=== PATIENT | female | born 1955 | race African-American/Black ===

== ENCOUNTER 2024-01-27 09:48 | Outpatient (REF) | payer MEDICARE, SELFPAY ==
[2024-01-27 11:39] LABS: MANUAL DIFF FLAG NO
[2024-01-27 12:46] LABS: Basophils Absolute Auto 0.1 X10*3/uL (0.0-0.2); Basophils Percent Auto 0.9 % (0-2); Eosinophils Absolute Auto 0.2 X10*3/uL (0.0-0.4); Hematocrit 42.3 % (37.0-47.0); Imm Gran Abs Auto 0.03 X10*3/uL (0.00-0.03); Imm Gran Pct Auto 0.3 % (0.0-0.4); Lymphocytes Absolute Auto 2.1 X10*3/uL (1.2-4.9); Lymphocytes Percent Auto 24.3 % (20-40); Mean Corpuscular HGB Conc 33.1 g/dl (31.0-35.0); Mean Corpuscular Hemoglobin 30.1 pg (27.0-33.0); Mean Platelet Volume 10.5 fL (9.4-12.3); Monocytes Absolute Auto 0.6 X10*3/uL (0.1-1.2); Monocytes Percent Auto 7.4 % (2-11); Neutrophils Absolute Auto 5.6 x10*3/uL (2.0-8.3); Neutrophils Percent Auto 65.1 % (45-73); Platelet Count 273 X10*3/uL (160-400); Red Blood Count 4.65 X10*6/uL (4.20-5.50); Red Cell Distribution Width 14.6 % (11.0-16.0); White Blood Count 8.6 X10*3/uL (4.8-10.8)
[2024-01-27 13:28] LABS: Erythrocyte Sedimentation Rate 12 MM/HR (0-20)
[2024-01-27 13:54] LABS: Alanine Aminotransferase 12 U/L (0-31); Albumin Level 4.5 g/dL (3.5-5.0); Alkaline Phosphatase 64 U/L (39-117); Anion Gap 13 (12-20); Aspartate Amino Transferase 14 U/L (5-31); Bilirubin Total 0.5 mg/dL (0.0-1.0); Blood Urea Nitrogen 13 mg/dL (9-16); C Reactive Protein 0.53 mg/dL (< or = 0.50); Calcium 9.7 mg/dL (8.4-10.2); Carbon Dioxide 30 mmol/L (22-29); Chloride 103 mmol/L (96-108); Estimated Glomerular Filt Rate > 60; Glucose Random 103 mg/dL (60-115); Potassium 3.6 mmol/L (3.3-5.1); Sodium 142 mmol/L (135-145); Total Protein 7.5 g/dL (6.5-8.0)
[2024-01-27 14:01] LABS: Uric Acid 5.9 mg/dL (2.4-5.7)
[2024-01-28 10:57] LABS: HBS Num1 0.44 mIU/mL (0-7.99); HBc Num1 0.07 S/CO (0.00-0.79); HBsAGNum1 0.27 S/CO (0.00-0.99); Hepatitis A Antibody IgM 0.15 Index (0-0.79); Hepatitis B Core Antibody Nonreactive (Nonreactive); Hepatitis B Surface Antigen Negative (Negative); ~HepC Num1 0.08 S/CO (0.00-0.79); ~Hepatitis A Antibody IgM Nonreactive (Nonreactive); ~Hepatitis B Surface Antibody NONREACTIVE (Nonreactive); ~Hepatitis C Antibody Nonreactive (Nonreactive)
[2024-01-29 09:28] LABS: Anti Nuclear Antibody Screen NEGATIVE (NEGATIVE)
[2024-01-29 21:23] LABS: TS Negative Control Passed; TS Panel A 1; TS Panel B 0; TS Positive Control Passed; TSpotTB Negative (Negative)
[2024-01-30 11:19] LABS: Prot Elec - Albumin 4.1 g/dL (3.8-4.8); Prot Elec - Alpha1 0.4 g/dL (0.2-0.3); Prot Elec - Alpha2 0.9 g/dL (0.5-0.9); Prot Elec - Beta 1 0.4 g/dL (0.4-0.6); Prot Elec - Beta 2 0.4 g/dL (0.2-0.5); Prot Elec - Gamma 0.8 g/dL (0.8-1.7)
[2024-01-30 23:39] LABS: Anti DNA DS Antibody <1 IU/mL; Antibody to SS-A Antigen <1.0 NEG AI (<1.0 NEG); Antibody to SS-B Antigen <1.0 NEG AI (<1.0 NEG); Myeloperoxidase Antibody <1.0 AI; Proteinase 3 PR3 Antibodies <1.0 AI; SM/Ribonucleoprotein Ab <1.0 NEG AI (<1.0 NEG); Smith Protein <1.0 NEG AI (<1.0 NEG)
[2024-01-31 07:13] LABS: Complement C3 160 mg/dL (83-193)
[2024-01-31 12:43] LABS: Cyclic Citrullinated Peptide <16 UNITS
[2024-01-31 19:12] LABS: IgA 184 mg/dL (70-320); IgG 915 mg/dL (600-1540); IgM 22 mg/dL (50-300)
== END 2024-01-27 09:49 | disposition home or self-care (01) ==
LOC: HO.LAB 09:48
PROVIDERS: PCP Pediatrics; Visit Provider Nurse Practitioner Family
DX: Z11.1 Encounter for screening for respiratory tuberculosis (principal); Z11.9 Encounter for screening for infectious and parasitic diseases, unspecified; M79.10 Myalgia, unspecified site; M35.3 Polymyalgia rheumatica
CPT/HCPCS: 36415; 80053; 82550; 82784; 84165; 84550; 85025; 85652; 86021; 86038; 86140; 86160; 86200; 86225; 86235; 86334; 86481; 86704; 86706; 86709; 86803; 87340; 99202

== ENCOUNTER 2024-01-27 09:48 | Outpatient (AMB) | payer MEDICARE, SELFPAY ==
--- NOTE | 2024-01-27 09:52 | MHC.OFFVIS ---
Intake Vital Signs 01/27/24 09:58 Height 5 ft 5 in Weight 219 lb 2.232 oz BMI 36.5 BP 132/84 Blood Pressure Location Rt radial Pulse 87 Pulse Source Pulse Oximeter Pulse Oximetry (%) 98 Oxygen Delivery Method Room Air Intake Visit Reasons: Inflammatory Polyarthralgia Intake Note: Joints affected: Hands, wrists arms, shoulders Pain began around late Jun, 2023. 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 Prasad height 68-year-old female presents for evaluation of inflammatory polyarthralgia on referral from her PCP. Ms. Prasad reports that late August 2023 she had symptoms of swelling bilateral arms such lifting her arms up to do tasks was painful in the upper arms and shoulders. She had swelling in her hands up to her forearm. This was resolved on prednisone. Patient reports that every time she stops the prednisone the pain returns to her upper arms. She also noticed that since she has been on the prednisone her lower back and buttocks and hips do not hurt as much. Ever since this experience started in August, she has been afraid to exercise or walk for long periods of time. The patient shares that her PCP did labs that showed that she may have rheumatoid arthritis and that is why she was started on the prednisone. Since she can not come off the prednisone they sent her here to be evaluated. She denies pain and swelling in other joints such as knees and feet. She has not had uveitis; denies rash, sun sensitivity, mouth sores, GI and urinary issues, Raynaud's. Later June 2023 wrist bands did not work Prednisone help, ROS when off, now daily 10mg. [facility] Medical History (Updated 01/27/24 @ 10:50 by KRISTA Mason) PMR (polymyalgia rheumatica) Screening examination for infectious disease Myalgia Rupture of left rotator cuff Prediabetes Impaired fasting glucose Single-level lumbosacral spondylosis with radiculopathy Cervical arthritis Multiple joint pain Arthritis of hand Arthralgia of acromioclavicular joint Diverticular disease Multiple nodules of lung Internal hemorrhoid Peripheral arterial occlusive disease Calcification of coronary artery Essential (primary) hypertension Obstructive sleep apnea Tobacco dependence syndrome Morbid obesity Pure hypercholesterolemia Hypothyroidism, unspecified H/O bone density study Surgical History (Updated 01/27/24 @ 09:58 by MARK Wu) Hx of colonoscopy History of appendectomy Family History (Updated 01/27/24 @ 10:01 by MARK Wu) Mother Arthritis Social History (Updated 01/27/24 @ 10:01 by MARK Wu) Household Members: None Alcohol intake: current Alcohol intake frequency: holidays/special occasions only Patient Tobacco Use Status: Current everyday Tobacco user Cigarette Packs Per Day: 5 Current occupational status: retired Female Reproductive History Menstrual Total pregnancies: 3 Number of Living Children: 2 Review of Systems Const All systems reviewed & are unremarkable except as noted in HPI and below Physical Exam Vital Signs: Last Vital Signs Pulse 87 01/27/24 09:58 BP 132/84 01/27/24 09:58 Pulse Ox 98 01/27/24 09:58 Oxygen Delivery Method Room Air 01/27/24 09:58 BMI result Body Mass Index 36.5 APPEARANCE: Patient in no acute distress EYES no redness, normal EARS:? External ear normal. NOSE/SINUS:? Airflow through both nares, no nasal discharge, no bleeding THROAT:? Oral mucosa moist, no ulcerations NECK:? No thyromegaly or masses, no adenopathy, trachea midline. HEART:? Regular rhythm, S1-S2 heard, no murmurs, rubs or gallops. LUNG:? Clear to percussion and auscultation EXTREMITIES:? No edema, no calf tenderness, normal peripheral pulses. NEURO:? Oriented and alert x3.? No focal weakness.? Reflexes symmetric.? Gait normal. SKIN:? There are no skin lesions evident. No objective signs of Raynaud's phenomenon. JOINT EXAM: Cervical Spine:.? Full range of motion without pain; no tenderness. Thoracic Spine:.? No scoliosis.? No tenderness on palpation. Lumbar Spine:.? Alignment normal.? Full range of motion without pain, no tenderness. Chest Wall:.? No tenderness, swelling, increased warmth or erythema. Hands:.? Normal pain-free range of motion without tenderness, swelling, increased warmth or erythema. 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 Wrists:.? Normal pain-free range of motion without tenderness, swelling, increased warmth or erythema. Elbows:. Normal pain-free range of motion without tenderness, swelling, increased warmth or erythema. Shoulders:.?? Full range of motion without pain. No tenderness, weakness, swelling, increased warmth or erythema. Hips:.? Full range of motion without pain. Hip bursa:.? No tenderness. Knees:.?? Normal pain-free range of motion without tenderness, swelling, increased warmth or erythema.? There is no effusion or crepitation Ankles:.? Normal pain-free range of motion without tenderness, swelling, increased warmth or erythema. Feet:.? Normal pain-free range of motion without tenderness, swelling, increased warmth or erythema. Tender points:? No tenderness to digital palpation at the occiput, trapezius, second rib, lateral epicondyle, knees, greater trochanter and gluteal area bilaterally. ? Results Reviewed Results Reviewed: 09/12/2023 YOSELIN negative, RF negative, CRP and sed normal rate Lyme antibodies negative Thee acid 6.29 December 2023: TSH 1.67 Assessment & Plan Assessment & Plan (1) Myalgia: Code(s): M79.10 - Myalgia, unspecified site (2) PMR (polymyalgia rheumatica): Code(s): M35.3 - Polymyalgia rheumatica Plan #PMR vs RA/myalgia:Ms. Prasad is suspected as having PMR given her description of her symptoms at onset and the ROS on abruptly stopping prednisone. She is on Prednisone 10 mg with 10 days left. She will complete the 10 days and then reduce to 9 mg per day for 1 month and decrease by 1 mg each succeeding month. If she has ROS and challenge to taper of Prednisone, we will treat as SeroNeg RA. Patient knows to contact the office for persisitent ROS. I will also do a Rheum panel for thorough evaluation. f/u 3 months I spent 35 minutes reviewing history, evaluating patient and documenting Orders: Orders Anti Extractable Nuclear Ag Today M79.10 - Myalgia, unspecified site ANCA Vasculitides Today M79.10 - Myalgia, unspecified site Anti DNA DS Antibody Today M79.10 - Myalgia, unspecified site Complete Blood Count Auto Diff Today M79.10 - Myalgia, unspecified site Creatine Kinase Total Today M79.10 - Myalgia, unspecified site Hepatitis A,B,C Profile Today M79.10 - Myalgia, unspecified site, Z11.9 - Encounter for screening for infectious and parasitic diseases, unspecified Immunofixation Pnl, Serum Today M79.10 - Myalgia, unspecified site Sjogren's Antibodies Today M79.10 - Myalgia, unspecified site T Spot TB Today M79.10 - Myalgia, unspecified site, Z11.9 - Encounter for screening for infectious and parasitic diseases, unspecified Erythrocyte Sedimentation Rate Today M79.10 - Myalgia, unspecified site YOSELIN Reflex Titer and Pattern Today M79.10 - Myalgia, unspecified site Complement C3 Today M79.10 - Myalgia, unspecified site Complement C4 Today M79.10 - Myalgia, unspecified site Comprehensive Met. Panel Today M79.10 - Myalgia, unspecified site C Reactive Protein Today M79.10 - Myalgia, unspecified site Immunoglobulins,IgG IgA IgM Today M79.10 - Myalgia, unspecified site Protein Electrophoresis, Serum Today M79.10 - Myalgia, unspecified site Uric Acid Today M79.10 - Myalgia, unspecified site Cyclic Citrullinated Peptide Today M79.10 - Myalgia, unspecified site Medications: New prednisone Combine with the one mg tablets for taper. 5 mg PO DAILY 90 tabs 0RF M35.3 - Polymyalgia rheumatica prednisone Combine with a five mg tablet for daily taper Take 4 tablets per day for 1 month Take 3 tablets per day for 1 month 280 tabs 0RF M35.3 - Polymyalgia rheumatica Coding Level of Care Code New Pt Level 4 (72225) Diagnoses Myalgia M79.10 PMR (polymyalgia rheumatica) M35.3
[2024-01-27 09:58] VITALS: BP 132/84; PULSE 87; O2SAT 98; BMI 36.5
== END 2024-01-27 10:58 | disposition home or self-care (01) ==
PROVIDERS: PCP Pediatrics; Visit Provider Nurse Practitioner Family
DX: M79.10 Myalgia, unspecified site (principal); M35.3 Polymyalgia rheumatica
CPT/HCPCS: 99204

== ENCOUNTER 2024-05-14 14:33 | Outpatient (AMB) | payer MEDICARE, SELFPAY ==
--- NOTE | 2024-05-14 14:36 | MHC.OFFVIS ---
Vital Signs 05/14/24 14:46 Height 5 ft 5 in Weight 224 lb 6.889 oz BMI 37.3 BP 130/74 Blood Pressure Location Lt brachial Position Sitting Respiration 16 Pulse 84 Pulse Source Pulse Oximeter Pulse Oximetry (%) 96 Oxygen Delivery Method Room Air Intake Visit Reasons: PMR/CM Intake Note: Patient presents for PMR. New white spots all over my body not sure if it is side effect from taking Prednisone. Allergies lisinopril [From Zestril] Allergy (Severe, Verified 05/14/24 14:44) Angioedema Medication List - Last Reconciled 05/14/24 by Santo Reynolds MD amlodipine 10 mg PO DAILY aspirin 81 mg PO DAILY atorvastatin 20 mg PO DAILY bupropion HCl XL 150 mg PO QAM chlorthalidone 12.5 mg PO QAM labetalol 200 mg PO BID levothyroxine (Synthroid) 125 mcg PO DAILY losartan 50 mg PO DAILY prednisone 10 mg PO DAILY prednisone Take 1 tab daily, combine with prednisone 1 mg tabs for taper prednisone 1 mg PO DAILY HPI Comments Details: 68-year-old female with PMR/seronegative RA returns for follow-up. She has been lowering her prednisone by 1 mg per month. She stated that she continues to get intermittent episodes of pain and swelling of her hands, wrists but symptoms are much milder. She has normal range of motion of her shoulders. She stated that after last visit she asked Marleen whether she can walk more. She has been walking more recently. She has been having significant pain in the right lower back, hip, buttock area that intermittently radiates to the anterior aspect of her right thigh. This is her main complaint today Most recent visit by Marleen Manrique 01/2024: Ms. Prasad height 68-year-old female presents for evaluation of inflammatory polyarthralgia on referral from her PCP. Ms. Prasad reports that late August 2023 she had symptoms of swelling bilateral arms such lifting her arms up to do tasks was painful in the upper arms and shoulders. She had swelling in her hands up to her forearm. This was resolved on prednisone. Patient reports that every time she stops the prednisone the pain returns to her upper arms. She also noticed that since she has been on the prednisone her lower back and buttocks and hips do not hurt as much. Ever since this experience started in August, she has been afraid to exercise or walk for long periods of time. The patient shares that her PCP did labs that showed that she may have rheumatoid arthritis and that is why she was started on the prednisone. Since she can not come off the prednisone they sent her here to be evaluated. She denies pain and swelling in other joints such as knees and feet. She has not had uveitis; denies rash, sun sensitivity, mouth sores, GI and urinary issues, Raynaud's. Later June 2023 wrist bands did not work Prednisone help, ROS when off, now daily 10mg. [facility] Medical History PMR (polymyalgia rheumatica) Screening examination for infectious disease Myalgia Rupture of left rotator cuff Prediabetes Impaired fasting glucose Single-level lumbosacral spondylosis with radiculopathy Cervical arthritis Multiple joint pain Arthritis of hand Arthralgia of acromioclavicular joint Diverticular disease Multiple nodules of lung Internal hemorrhoid Peripheral arterial occlusive disease Calcification of coronary artery Essential (primary) hypertension Obstructive sleep apnea Tobacco dependence syndrome Morbid obesity Pure hypercholesterolemia Hypothyroidism, unspecified H/O bone density study Surgical History Hx of colonoscopy History of appendectomy Family History Mother Arthritis Social History Household Members: None Alcohol intake: current Alcohol intake frequency: holidays/special occasions only Patient Tobacco Use Status: Current everyday Tobacco user Cigarette Packs Per Day: 5 Current occupational status: retired Review of Systems [facility] back pain, Reports arthralgias, Reports joint swelling and Reports stiffness Physical Exam Vital Signs: BMI result Body Mass Index 37.3 Const General: cooperative, healthy appearing and comfortable Nutritional Appearance: obese morbidly obese Orientation/consciousness: patient oriented x3 Limitations: no limitations HEENT Head: Yes normocephalic and Yes atraumatic Mouth: moist mucous membranes Resp Effort & Inspection: normal respiratory effort and able to speak in complete sentences Auscultation: clear to auscultation bilaterally GI Palpation (GI): Soft to palpation and nontender Skin General skin exam: no rashes or lesions noted Neuro General: patient oriented x3 Extrem Other: No active synovitis both hands, wrists, elbows, shoulders Normal nailfold capillaroscopy Negative rotator cuff provocative maneuvers and negative Speed's test bilaterally No knee pain with full flexion-extension No ankle swelling or tenderness bilaterally Negative MTP squeeze test bilaterally Right hip pain with Rian's test on the right No groin pain with flexion adduction and external rotation of right hip No groin pain with right foot inversion No buttock tenderness bilaterally negative straight leg raise test bilaterally Results Reviewed Results Reviewed: 09/12/2023 YOSELIN negative, RF negative, CRP and sed normal rate Lyme antibodies negative Uric acid 6.29 December 2023: TSH 1.67 Assessment & Plan Assessment & Plan (1) PMR (polymyalgia rheumatica): Code(s): M35.3 - Polymyalgia rheumatica Category: Medical Plan: This is a 68-year-old female who presents for evaluation of PMR. This is her 1st visit with me. She used to follow-up with Marleen Manrique. Patient has been lowering her prednisone by 1 mg per month. She has been taking 6 mg of prednisone daily about a week now. Overall her inflammatory symptoms are much better. Her symptoms today are likely degenerative and mechanical Check labs today, plan to continue to taper prednisone by 1 mg per month Labs before next visit in 3 months. If no symptomatic improvement, persistent inflammatory markers, patient will likely need to be treated as seronegative RA given her peripheral symptoms initially (swelling of hands, forearms, elbows) (2) Acute pain of right hip: Code(s): M25.551 - Pain in right hip Category: Medical Plan: Likely degenerative and mechanical in nature rather than inflammatory precipitated by abrupt increase in activity on top of degenerative arthritis Trochanteric bursitis versus pyriformis versus spinal degenerative arthritis Patient's PCP offered her PT versus orthopedics evaluation. Advised patient that PT can be helpful, if no improvement can consider pain management evaluation versus orthopedic Plan I spent 35 minutes reviewing patient's chart, evaluating patient, ordering diagnostic workup, counseling patient and documenting in the chart Orders: Orders Complete Blood Count Auto Diff Today M35.3 - Polymyalgia rheumatica Comprehensive Met. Panel Today M35.3 - Polymyalgia rheumatica Erythrocyte Sedimentation Rate Today M35.3 - Polymyalgia rheumatica C Reactive Protein Today M35.3 - Polymyalgia rheumatica Complete Blood Count Auto Diff 3 Months M35.3 - Polymyalgia rheumatica Comprehensive Met. Panel 3 Months M35.3 - Polymyalgia rheumatica C Reactive Protein 3 Months M35.3 - Polymyalgia rheumatica Erythrocyte Sedimentation Rate 3 Months M35.3 - Polymyalgia rheumatica Coding Level of Care Code Est Pt Level 4 (91321) Diagnoses PMR (polymyalgia rheumatica) M35.3 Acute pain of right hip M25.551
[2024-05-14 14:46] VITALS: BP 130/74; PULSE 84; RESP 16; O2SAT 96; BMI 37.3
== END 2024-05-14 15:12 | disposition home or self-care (01) ==
PROVIDERS: PCP Pediatrics; Visit Provider Student in an Organized Health Care Education/Training Program
DX: M35.3 Polymyalgia rheumatica (principal); M25.551 Pain in right hip
CPT/HCPCS: 99214

== ENCOUNTER → 2024-05-14 14:33 | Outpatient (BNVA) | payer MEDICARE, SELFPAY | PROVIDERS: PCP Pediatrics; Visit Provider Student in an Organized Health Care Education/Training Program | DX: M35.3 Polymyalgia rheumatica (principal); M25.551 Pain in right hip | CPT/HCPCS: 99212 ==

== ENCOUNTER 2024-08-14 15:30 | Outpatient (AMB) | payer MEDICARE, SELFPAY ==
--- NOTE | 2024-08-14 15:39 | MHC.OFFVIS ---
Vital Signs 08/14/24 15:40 Height 5 ft 5 in Weight 227 lb 15.327 oz BMI 37.9 BP 132/74 Blood Pressure Location Lt brachial Position Sitting Pulse 85 Pulse Source Pulse Oximeter Pulse Oximetry (%) 98 Oxygen Delivery Method Room Air Intake Visit Reasons: PMR Intake Note: Patient last seen by Doctor Santo Reynolds on 05/14/24. Presents today for PMR follow up and test results. Allergies lisinopril [From Zestril] Allergy (Severe, Verified 08/14/24 15:41) Angioedema Medication List - Last Reconciled 08/14/24 by Santo Reynolds MD amlodipine 10 mg PO DAILY aspirin 81 mg PO DAILY atorvastatin 20 mg PO DAILY bupropion HCl XL 150 mg PO QAM chlorthalidone 12.5 mg PO QAM labetalol 200 mg PO BID levothyroxine (Synthroid) 125 mcg PO DAILY losartan 50 mg PO DAILY prednisone 4 mg (4 x 1 mg) PO DAILY HPI Comments Details: 68-year-old female with PMR/seronegative RA returns for follow-up. She has been lowering her prednisone by 1 mg per month. She has been taking 3 mg daily since August 06. She states that she does feel some achiness and stiffness especially as soon as she lowers her prednisone by 1 mg but overall she is better than before. She has not noticed any swelling but she continues to have some achiness in her shoulders, hands, right hip. Morning stiffness only lasting 2 minutes. She states that she would take ibuprofen once or twice a week as needed when she knows that she will have to do more walking. [facility] Medical History (Updated 08/14/24 @ 16:15 by Santo Reynolds MD) PMR (polymyalgia rheumatica) Myalgia Rupture of left rotator cuff Prediabetes Impaired fasting glucose Single-level lumbosacral spondylosis with radiculopathy Cervical arthritis Multiple joint pain Arthritis of hand Arthralgia of acromioclavicular joint Diverticular disease Multiple nodules of lung Internal hemorrhoid Peripheral arterial occlusive disease Calcification of coronary artery Essential (primary) hypertension Obstructive sleep apnea Tobacco dependence syndrome Morbid obesity Pure hypercholesterolemia Hypothyroidism, unspecified H/O bone density study Surgical History Hx of colonoscopy History of appendectomy Family History Mother Arthritis Social History Household Members: None Alcohol intake: current Alcohol intake frequency: holidays/special occasions only Patient Tobacco Use Status: Current everyday Tobacco user Cigarette Packs Per Day: 5 Current occupational status: retired Female Reproductive History Menstrual Total pregnancies: 3 Number of Living Children: 2 Review of Systems [employer] Reports arthralgias, Denies joint swelling and Reports stiffness Physical Exam Vital Signs: Last Vital Signs Pulse 85 08/14/24 15:40 BP 132/74 08/14/24 15:40 Pulse Ox 98 08/14/24 15:40 Oxygen Delivery Method Room Air 08/14/24 15:40 BMI result Body Mass Index 37.9 Const General: cooperative, healthy appearing and comfortable Nutritional Appearance: obese morbidly obese Orientation/consciousness: patient oriented x3 Limitations: no limitations HEENT Head: Yes normocephalic and Yes atraumatic Mouth: moist mucous membranes Resp Effort & Inspection: normal respiratory effort and able to speak in complete sentences Auscultation: clear to auscultation bilaterally GI Palpation (GI): Soft to palpation and nontender Skin General skin exam: no rashes or lesions noted Neuro General: patient oriented x3 Extrem Other: No active synovitis both hands, wrists, elbows, shoulders Normal nailfold capillaroscopy No knee pain with full flexion-extension No ankle swelling or tenderness bilaterally Negative MTP squeeze test bilaterally Right hip pain with Rian's test on the right No groin pain with flexion adduction and external rotation of right hip No groin pain with right foot inversion No buttock tenderness bilaterally negative straight leg raise test bilaterally Results Reviewed Results Reviewed: 09/12/2023 YOSELIN negative, RF negative, CRP and sed normal rate Lyme antibodies negative Uric acid 6.29 December 2023: TSH 1.67 Assessment & Plan Assessment & Plan (1) PMR (polymyalgia rheumatica): Code(s): M35.3 - Polymyalgia rheumatica Category: Medical Plan: This is a 68-year-old female with PMR who presents for follow-up. She has been tapering her prednisone by 1 mg per month. She has been taking prednisone 3 mg daily for 1 week now. Doing well overall. Patient's initial symptoms were rather consistent with RA (swelling of elbows, forearms, hands) CRP was only slightly elevated (may be related to obesity) Start hydroxychloroquine 200 mg Twice daily Continue to taper prednisone by 1 mg per month Labs today and before next visit in 3 months (2) Long-term use of hydroxychloroquine: Code(s): Z79.899 - Other group home (current) drug therapy Category: Medical Plan: Discussed risk of retinopathy associated with hydroxychloroquine. Patient has an appointment with her environment friendly landscape designer in December. Plan I spent 25 minutes reviewing patient's chart, evaluating patient, ordering diagnostic workup, counseling patient and documenting in the chart Orders: Orders C Reactive Protein 3 Months M35.3 - Polymyalgia rheumatica Erythrocyte Sedimentation Rate 3 Months M35.3 - Polymyalgia rheumatica Complete Blood Count Auto Diff 3 Months M35.3 - Polymyalgia rheumatica Comprehensive Met. Panel 3 Months M35.3 - Polymyalgia rheumatica Medications: New hydroxychloroquine 200 mg PO BID 60 tabs 2RF Coding Level of Care Code Est Pt Level 4 (61711) Complex EM visit Add On G2211 Diagnoses PMR (polymyalgia rheumatica) M35.3 Long-term use of hydroxychloroquine Z79.899
[2024-08-14 15:40] VITALS: BP 132/74; PULSE 85; O2SAT 98; BMI 37.9
== END 2024-08-14 16:13 | disposition home or self-care (01) ==
PROVIDERS: PCP Pediatrics; Visit Provider Student in an Organized Health Care Education/Training Program
DX: M35.3 Polymyalgia rheumatica (principal); Z79.899 Other long term (current) drug therapy
CPT/HCPCS: 99214; G2211

== ENCOUNTER → 2024-08-14 15:30 | Outpatient (BNVA) | payer MEDICARE, SELFPAY | PROVIDERS: PCP Pediatrics; Visit Provider Student in an Organized Health Care Education/Training Program | DX: M35.3 Polymyalgia rheumatica (principal); Z79.899 Other long term (current) drug therapy | CPT/HCPCS: 99212 ==

== ENCOUNTER 2024-12-06 13:41 | Outpatient (REF) | payer MEDICARE, SELFPAY ==
[2024-12-06 17:36] LABS: MANUAL DIFF FLAG NO
[2024-12-06 17:42] LABS: Basophils Absolute Auto 0.1 X10*3/uL (0.0-0.2); Basophils Percent Auto 1.5 % (0-2); Eosinophils Absolute Auto 0.3 X10*3/uL (0.0-0.4); Eosinophils Percent Auto 4.5 % (0-4); Hematocrit 40.4 % (37.0-47.0); Hemoglobin 13.6 g/dl (12.0-16.0); Imm Gran Abs Auto 0.02 X10*3/uL (0.00-0.03); Imm Gran Pct Auto 0.3 % (0.0-0.4); Lymphocytes Absolute Auto 2.5 X10*3/uL (1.2-4.9); Lymphocytes Percent Auto 41.8 % (20-40); Mean Corpuscular HGB Conc 33.7 g/dl (31.0-35.0); Mean Corpuscular Hemoglobin 29.7 pg (27.0-33.0); Mean Corpuscular Volume 88.2 fL (80.0-98.0); Mean Platelet Volume 9.7 fL (9.4-12.3); Monocytes Absolute Auto 0.5 X10*3/uL (0.1-1.2); Monocytes Percent Auto 9.1 % (2-11); Neutrophils Absolute Auto 2.6 x10*3/uL (2.0-8.3); Neutrophils Percent Auto 42.8 % (45-73); Platelet Count 310 X10*3/uL (160-400); Red Blood Count 4.58 X10*6/uL (4.20-5.50); Red Cell Distribution Width 13.3 % (11.0-16.0)
[2024-12-06 17:55] LABS: Alanine Aminotransferase 10 U/L (0-31); Aspartate Amino Transferase 21 U/L (5-31); C Reactive Protein 0.49 mg/dL (< or = 0.50); Estimated Glomerular Filt Rate > 60
[2024-12-06 18:27] LABS: Erythrocyte Sedimentation Rate 19 MM/HR (0-20)
== END 2024-12-06 13:42 | disposition home or self-care (01) ==
LOC: HO.HKASLDS 13:41
PROVIDERS: PCP Pediatrics; Visit Provider Internal Medicine Rheumatology
DX: M70.61 Trochanteric bursitis, right hip (principal); M16.11 Unilateral primary osteoarthritis, right hip; M35.3 Polymyalgia rheumatica; Z79.60 Long term (current) use of unspecified immunomodulators and immunosuppressants
CPT/HCPCS: 20610; 36415; 82565; 84450; 84460; 85025; 85652; 86140; 99212; J2003; J3300

== ENCOUNTER 2024-12-06 13:41 | Outpatient (AMB) | payer MEDICARE, SELFPAY ==
--- NOTE | 2024-12-06 14:17 | MHC.OFFVIS ---
Vital Signs 12/06/24 14:18 Height 5 ft 5 in Weight 219 lb 4 oz BMI 36.5 BP 130/82 Blood Pressure Location Lt brachial Position Sitting Pulse 82 Pulse Source Pulse Oximeter Pulse Oximetry (%) 98 Oxygen Delivery Method Room Air Intake Visit Reasons: PMR Intake Note: Patient presents follow up PMR. Patient looking for letter for jury duty. Allergies lisinopril [From Zestril] Allergy (Severe, Verified 12/06/24 14:21) Angioedema HPI HPI PMR: Details: Off of prednsione she does not feel well. Off of prednisone 11/03/2024. Pain in thighs going up stairs, back, arms. Feels like she is having a work out with showering. She has not had recurrent of joint swelling but has paresthesia in palms of hands recently. +fatigue. Denies GCA symptoms. R hip pain is worse. Hx DJD right hip on x-ray. PFSH Medical History PMR (polymyalgia rheumatica) Myalgia Rupture of left rotator cuff Prediabetes Impaired fasting glucose Single-level lumbosacral spondylosis with radiculopathy Cervical arthritis Multiple joint pain Arthritis of hand Arthralgia of acromioclavicular joint Diverticular disease Multiple nodules of lung Internal hemorrhoid Peripheral arterial occlusive disease Calcification of coronary artery Essential (primary) hypertension Obstructive sleep apnea Tobacco dependence syndrome Morbid obesity Pure hypercholesterolemia Hypothyroidism, unspecified H/O bone density study Surgical History Hx of colonoscopy History of appendectomy Family History Mother Arthritis Social History Household Members: None Alcohol intake: current Alcohol intake frequency: holidays/special occasions only Patient Tobacco Use Status: Current everyday Tobacco user Cigarette Packs Per Day: 5 Current occupational status: retired Review of Systems Const All systems reviewed & are unremarkable except as noted in HPI and below Physical Exam Vital Signs: Last Vital Signs Pulse 82 12/06/24 14:18 BP 130/82 12/06/24 14:18 Pulse Ox 98 12/06/24 14:18 Oxygen Delivery Method Room Air 12/06/24 14:18 BMI result Body Mass Index 36.5 Const Other: General: Comfortable CVS: RRR Respiratory: clear to auscultation bilaterally. Good respiratory effort Skin: No lesions seen MSK: No tenderness of joints in her hands. No synovitis. Tender bilateral shoulders. Shoulder abduction 160 degrees bilateral with limited internal rotation of bilateral shoulders. Good internal rotation of bilateral shoulders. Right hip external rotation is more limited than left.. Right trochanteric bursa tenderness is found greater than left trochanteric bursa tenderness. Good knee flexion. No ankle or MTP tenderness. She is able to get up from seated position without using hands on hand rest. Office Procedures AMB Joint Injection/Aspiration Joint Injection/Aspiration Details: Right trochanteric bursa Prep: site was prepped using aseptic technique Injected: 40 mg of, Kenalog, with 1 mL of and 1% plain lidocaine Procedure: The patient tolerated the procedure well. Postprocedure protocol was discussed with patient. Coding 37992 - Large joint Procedure code (CPT) selection complete Office Meds lidocaine (PF) 10 mg/mL (1 %) injection solution Performing Provider: Dale Bishop MD Performing Location: [facility] Administered by: Dale Bishop MD on 12/06/24 16:01 Dose Route Admin Location Dispensed Lot Number Expiration Date [facility] Oxygen Equipment Technician 10 mg Infiltration 5 mL [id number] [employer] Kenalog 40 mg/mL suspension for injection Performing Provider: Dale Bishop MD Performing Location: [facility] Administered by: Dale Bishop MD on 12/06/24 16:01 Dose Route Admin Location Dispensed Lot Number Expiration Date [facility] Oxygen Equipment Technician 40 mg intra-articular 1 mL [id number] [employer] Assessment & Plan Assessment & Plan (1) PMR (polymyalgia rheumatica): Comment: With initial presentation representing seronegative RA. She has had relapse in PMR symptoms off of prednisone on hydroxychloroquine. We discussed changing hydroxychloroquine to methotrexate due to relapse PMR. I will be checking inflammation markers this visit. Code(s): M35.3 - Polymyalgia rheumatica Category: Medical Plan: Labs ordered this visit Continue hydroxychloroquine 400 mg daily. I will consider switching hydroxychloroquine to methotrexate after lab results are reviewed Return to clinic in 2 months (2) Trochanteric bursitis, right hip: Comment: Uncontrolled pain. She is unable to participate in physical therapy due to uncontrolled pain. Code(s): M70.61 - Trochanteric bursitis, right hip Category: Medical Plan: Patient received right trochanteric bursa cortisone injection this visit She will start physical therapy when pain is more controlled PT ordered Return to clinic in 3 months (3) Osteoarthritis of right hip: Comment: Causing limited external rotation of right hip. She reports that she had an x-ray performed last year that confirmed that she has osteoarthritis of right hip. We discussed conservative management. Code(s): M16.11 - Unilateral primary osteoarthritis, right hip Category: Medical Qualifiers: Osteoarthritis type: primary Qualified Code(s): M16.11 - Unilateral primary osteoarthritis, right hip Plan: She agreed to start physical therapy for hip strengthening and to improve range of motion I am requesting right hip x-ray report Return to clinic in 3 months Orders: Orders Complete Blood Count Auto Diff Today Z79.60 - manager intermediate (current) use of unspecified immunomodulators and immunosuppressants Creatinine Today Z79.60 - manager intermediate (current) use of unspecified immunomodulators and immunosuppressants AMB Joint Injection/Aspiration Today M70.61 - Trochanteric bursitis, right hip Alanine Aminotransferase Today Z79.60 - manager intermediate (current) use of unspecified immunomodulators and immunosuppressants Aspartate Amino Transferase Today Z79.60 - manager intermediate (current) use of unspecified immunomodulators and immunosuppressants Erythrocyte Sedimentation Rate Today M35.3 - Polymyalgia rheumatica C Reactive Protein Today M35.3 - Polymyalgia rheumatica PT Evaluation and Treatment Today M16.11 - Unilateral primary osteoarthritis, right hip, M70.61 - Trochanteric bursitis, right hip Medications: New lidocaine (PF) 10 mg Infiltration ONCE 1 mL 0RF M70.61 - Trochanteric bursitis, right hip Kenalog (triamcinolone acetonide) 40 mg intra-articular ONCE 1 mL 0RF NS M70.61 - Trochanteric bursitis, right hip Coding Level of Care Code Est Pt Level 4 (65476) Complex EM visit Add On G2211 Diagnoses PMR (polymyalgia rheumatica) M35.3 Trochanteric bursitis, right hip M70.61 Primary osteoarthritis of right hip M16.11 Osteoarthritis type: primary CPT Codes Coding - 54050 Large joint: 52710 - Large joint ([id number])
[2024-12-06 14:18] VITALS: BP 130/82; PULSE 82; O2SAT 98; BMI 36.5
== END 2024-12-06 15:15 | disposition home or self-care (01) ==
PROVIDERS: PCP Pediatrics; Visit Provider Internal Medicine Rheumatology
DX: M35.3 Polymyalgia rheumatica (principal); M70.61 Trochanteric bursitis, right hip; M16.11 Unilateral primary osteoarthritis, right hip
CPT/HCPCS: 20610; 99214

== ENCOUNTER 2025-02-19 13:48 | Outpatient (AMB) | payer MEDICARE, SELFPAY ==
--- NOTE | 2025-02-19 14:08 | A.OFFVIS_ITS ---
Vital Signs 02/19/25 14:10 Height 5 ft 5 in Weight 210 lb 1.608 oz BMI 35.0 BP 120/70 Blood Pressure Location Lt brachial Position Sitting Pulse 96 Pulse Source Pulse Oximeter Pulse Oximetry (%) 98 Oxygen Delivery Method Room Air Intake Visit Reasons: 2 Months Intake Note: Patient presents follow up PMR. Allergies lisinopril [From Zestril] Allergy (Severe, Verified 02/19/25 14:13) Angioedema HPI HPI 2 Months: Details: She feels well. She had benefit with cortisone injection right bursa. Been active. She when out 3 days in a row for the 1st time in a walker. She held HCQ while on fluconazole and metronidazole. She has not had dreams off of HCQ. [facility] Medical History PMR (polymyalgia rheumatica) Myalgia Rupture of left rotator cuff Prediabetes Impaired fasting glucose Single-level lumbosacral spondylosis with radiculopathy Cervical arthritis Multiple joint pain Arthritis of hand Arthralgia of acromioclavicular joint Diverticular disease Multiple nodules of lung Internal hemorrhoid Peripheral arterial occlusive disease Calcification of coronary artery Essential (primary) hypertension Obstructive sleep apnea Tobacco dependence syndrome Morbid obesity Pure hypercholesterolemia Hypothyroidism, unspecified H/O bone density study Surgical History Hx of colonoscopy History of appendectomy Family History Mother Arthritis Social History Household Members: None Alcohol intake: current Alcohol intake frequency: holidays/special occasions only Patient Tobacco Use Status: Current everyday Tobacco user Cigarette Packs Per Day: 5 Current occupational status: retired Physical Exam Vital Signs: Last Vital Signs Pulse 96 02/19/25 14:10 BP 120/70 02/19/25 14:10 Pulse Ox 98 02/19/25 14:10 Oxygen Delivery Method Room Air 02/19/25 14:10 BMI result Body Mass Index 35.0 Const Other: General: Comfortable CVS: RRR Respiratory: clear to auscultation bilaterally. Good respiratory effort Skin: No lesions seen MSK: No tenderness of joints in her hands. No synovitis. Nontender bilateral shoulders. Shoulder abduction 170 degrees bilateral with limited internal rotation of bilateral shoulders. Normal internal rotation of bilateral shoulders. Right hip external rotation is more limited than left. No trochanteric bursa tenderness found. Normal knee flexion. No ankle or MTP tenderness. She is able to get up from seated position without using hands on hand rest. Assessment & Plan Assessment & Plan (1) PMR (polymyalgia rheumatica): Comment: In clinical remission. Inflammatory markers 11/2024 normal. With initial presentation representing seronegative RA. She was on hydroxychloroquine until recently due to antifungal and antibiotic treatment. On hydroxychloroquine she had bad dreams, which resolved since she has been off of it. We discussed continuing off of hydroxychloroquine and monitoring clinically. She agrees with plan. Code(s): M35.3 - Polymyalgia rheumatica Category: Medical Plan: Inflammatory markers ordered She will remain off of hydroxychloroquine. If she has recurrence of joint symptoms or muscle weakness, she will call office Return to clinic in 3 months (2) Trochanteric bursitis, right hip: Comment: Pain resolved with cortisone injection Code(s): M70.61 - Trochanteric bursitis, right hip Category: Medical Plan: Return to clinic in 3 months (3) Osteoarthritis of right hip: Comment: Causing limited external rotation of right hip. At this time she can not afford co-pay for PT. She will start PT when it is financially feasible for patient. Code(s): M16.11 - Unilateral primary osteoarthritis, right hip Category: Medical Qualifiers: Osteoarthritis type: primary Qualified Code(s): M16.11 - Unilateral primary osteoarthritis, right hip Plan: She agreed to start physical therapy for hip strengthening and to improve range of motion. She will call office to set up PT when she is ready Return to clinic in 3 months Orders: Orders C Reactive Protein Today Z79.899 - Other intermediate (current) drug therapy Erythrocyte Sedimentation Rate Today Z79.899 - Other terminal computer operator (current) drug therapy Medications: Refilled meloxicam Take 1 tablet daily with food. 15 mg PO DAILY 30 tabs 2RF Coding Level of Care Code Est Pt Level 4 (41410) Complex EM visit Add On G2211 Diagnoses PMR (polymyalgia rheumatica) M35.3 Trochanteric bursitis, right hip M70.61 Primary osteoarthritis of right hip M16.11 Osteoarthritis type: primary
[2025-02-19 14:10] VITALS: BP 120/70; PULSE 96; O2SAT 98; BMI 35.0
--- OUTSIDE RECORDS SUMMARY | 2025-02-19 15:57 | XMS_ITS | Clinical Summary ---
Author Organization [address] [facility] Address [address] [place] [address] Phone Care Team Providers Care Professional Sports Scout Name Role Phone Unavailable Primary Care Provider Unavailabl e Encounters Date Type Department Care Team Description 02/07/2025 Lab Requisition [facility] - Main Lab [address] [facility] [place] [address] Sil Byrnes MD Acute vaginitis from Last 3 Months Social History Tobacco Use Types Packs/Day Years Used Date Smoking Tobacco: Never Assessed Comments Unknown Sex and Gender Information Value Date Recorded Sex Assigned at Not on file Legal Sex Female 7:51 PM EST Gender Identity Not on file Sexual Orientation Not on file Plan of Treatment Health Maintenance Due Date Last Done Comments Breast Cancer Screening 1955 DTaP,Tdap,and Td Vaccines (1 - Tdap) 1976 Pneumococcal Vaccine: 50+ Ye ars (1 of 1 - PCV) 2007 Zoster Vaccines (1 of 2) 2007 COVID-19 Vaccine ( - 2023-2 5 season) 2024 Colorectal Cancer Screening: Colonoscopy 02/08/2025 Depression Screening 02/08/2025 Falls Risk Assessment 02/08/2025 Hepatitis C Screening 02/08/2025 Medicare Annual Wellness Visit 02/08/2025 Osteoporosis Screening (Bone Density Screening) 02/08/2025 Social Influencers of Health Screening 02/08/2025 Influenza Vaccine (Season Ended) 2025 RSV Immunization Adult Patie nts (1 - 1-dose 75+ series) 2032 HIB Vaccines Aged Out No longer eligi ble based on patient's age to complete this topic HPV Vaccines Aged Out No longer eligi ble based on patient's age to complete this topic Hepatitis A Vaccines Aged Out No long er eligible based on patient's age to complete this topic Hepatitis B Vaccines Aged Out No long er eligible based on patient's age to complete this topic IPV Vaccines Aged Out No longer eligi ble based on patient's age to complete this topic MMR Vaccines Aged Out No longer eligi ble based on patient's age to complete this topic Meningococcal ACWY Vaccine Aged Out N o longer eligible based on patient's age to complete this topic Meningococcal B Vaccine Aged Out No l onger eligible based on patient's age to complete this topic RSV Immunization Patients Un danielle 20 months Aged Out No longer eligible b ased on patient's age to complete this topic Varicella Vaccines Aged Out No longer eligible based on patient's age to complete this topic Procedures Procedure Name Priority Date/Time Associated Diagnosis Comments VAGINITIS PATHOGENS BY PCR Routine 02/07/2025 12:00 AM EDT Acute vaginitis from Last 3 Months Results * (ABNORMAL) Vaginitis pathogens molecular study (02/07/2025 12:00 AM EDT) Trichomonas vaginalis Negative Negative 02/08/2025 1:44 PM EDT [facility] Gardnerella vaginalis Positive(A) Negative 02/08/2025 1:44 PM EDT [facility] Rowan Species Positive(A) Negative 02/09/20 1:44 PM EDT [facility] Swab Vaginal structure / Unknown 02/07/2025 02/07/2025 6:18 PM EDT us Sil Byrnes MD LAB MICROBIOLOGY - GENER AL ORDERABLES Final Result [facility] [address] [place] [address], [place] [phone] from Last 3 Months Insurance [employer] MEDICARE
--- OUTSIDE RECORDS SUMMARY | 2025-02-19 15:57 | XMS_ITS | Encounter Summary ---
Author Organization [employer] Address [address] [place] [address] Care Team Providers Care Freelance Copywriter Name Role Phone Unavailable Primary Care Provider Unavailabl e Encounter Details Date Type Department Care Team (Late st Contact Info) Description 02/07/2025 Lab Requisition [facility] - Main Lab [address] [place] [phone] Sil Byrnes MD [address] [phone] Acute vaginitis Social History Tobacco Use Types Packs/Day Years Used Date Smoking Tobacco: Never Assessed Comments Unknown Sex and Gender Information Value Date Recorded Sex Assigned at Not on file Legal Sex Female 7:51 PM EST Gender Identity Not on file Sexual Orientation Not on file documented as of this encounter Plan of Treatment Not on file documented as of this encounter Procedures Procedure Name Priority Date/Time Associated Diagnosis Comments VAGINITIS PATHOGENS BY PCR Routine 02/07/2025 12:00 AM EDT Acute vaginitis documented in this encounter Results * (ABNORMAL) Vaginitis pathogens molecular study (02/07/2025 12:00 AM EDT) Trichomonas vaginalis Negative Negative 02/08/2025 1:44 PM EDT [facility] Gardnerella vaginalis Positive(A) Negative 02/08/2025 1:44 PM EDT [facility] Rowan Species Positive(A) Negative 02/09/20 25 1:44 PM EDT [facility] Swab Vaginal structure / Unknown 02/07/2025 02/07/2025 6:18 PM EDT us Sil Byrnes MD LAB MICROBIOLOGY - GENER AL ORDERABLES Final Result [facility] [address] [place] [address], documented in this encounter Visit Diagnoses Diagnosis Acute vaginitis Unspecified vaginitis and vulvovaginitis documented in this encounter
--- OUTSIDE RECORDS SUMMARY | 2025-02-19 15:58 | XMS_ITS | Data Portability ---
Author Organization [facility], Main Office Address [address] [facility] [address] [place] [id number] Care Team Providers Care Chlorination Operator Name Role Phone KEN GRIFFITHS Primary Care Provider ARIEL LOPEZ Print Shop Stenographer DESIREE KRAUS Vascular Surgeon DAREK SCOTT Urologist VIKASH ROJAS Hand Surgeon DANISH COLLAZO Long Wall Shear Operator YONY NIELSEN Orthopedic Surgeon [phone] [facility] RHE[facility] Rheumatologi st Assessment No assessment recorded. Plan of Treatment Reminders Order Date Submit Date Provider Last Modified By Organization Details Last Modified Time Details Appointments FOLLO W UP 2024 01:30P M Ken Griffiths MD Not available Not available Not available Lab CMP, serum or plasm a 2024 025 [facility], [address], [place], [address], 01/12/2025 18:05:32 urina lysis , compl ete 2024 025 [facility], [address], [place], [address], 01/12/2025 18:05:33 lipid panel , serum 2024 025 [facility], [address], [place], [address], 01/12/2025 18:05:34 HbA1c (hemo globi n A1c), blood 2024 025 [facility], [address], [address], [place], [address], 01/12/2025 18:05:34 TSH, ultra -sens itive , serum 2024 025 PA[facility]INE [facility] (Centralized Electronic Ordering - All Locations), Patient Can Go To The Location Of Their Choice, 01/12/2025 18:05:35 LDL, direc t, serum 2023 024 [facility]INE [facility] (Centralized Electronic Ordering - All Locations), Patient Can Go To The Location Of Their Choice, 07/28/2024 06:10:30 HbA1c (hemo globi n A1c), blood 2023 024 [facility] (Centralized Electronic Ordering - All Locations), Patient Can Go To The Location Of Their Choice, 07/28/2024 06:10:31 CMP, serum or plasm a 2023 024 [facility] (Centralized Electronic Ordering - All Locations), Patient Can Go To The Location Of Their Choice, 07/28/2024 06:10:30 lipid panel , serum 2023 024 [facility] (Centralized [facility] Ordering - All Locations), Patient Can Go To The Location Of Their Choice, 04/07/2024 06:09:08 CMP, serum or plasm a 2023 024 [facility] (Centralized Electronic Ordering - All Locations), Patient Can Go To The Location Of Their Choice, 04/07/2024 06:09:07 HbA1c (hemo globi n A1c), blood 2023 024 [facility] (Centralized Electronic Ordering - All Locations), Patient Can Go To The Location Of Their Choice, 04/07/2024 06:09:09 CMP, serum or plasm a 2023 024 [facility], [address], [address], [place], [address], 12/30/2023 12:14:11 urina lysis , compl ete 2023 024 [facility], [address], [address], [place], [address], 12/30/2023 13:29:05 lipid panel , serum 2023 024 [facility], [address], [address], [place], [address], 12/30/2023 12:14:15 HbA1c (hemo globi n A1c), blood 2023 024 [facility], [address], [address], [place], [address], 12/30/2023 11:54:35 C-mary ctive prote in, quant itati ve, serum or plasm a 2023 024 [facility], [address], [address], [place], [address], 12/30/2023 12:14:13 ESR (eryt hrocy te sedim entat ion rate) , blood 2023 024 [facility], [address], [address], [place], [address], 12/30/2023 12:10:21 ccp (cycl ic citru llina chiquita pepti de) igg, serum 2023 024 [facility], [address], [address], [place], [address], 01/02/2024 21:07:07 rf (rheu matoi d facto r), serum 2023 024 [facility], [address], [address], [place], [address], 12/30/2023 12:43:03 TSH, serum or plasm a 2023 024 [facility], [address], [address], [place], [address], 12/30/2023 11:40:[address] refer ral - Patie nt to sched ule 2024 025 [email or web address] Ariel Engle MD, [address] [facility], [address], [place], [address], 12/13/2024 13:56:53 ophth almol ogist refer ral - for hydro xychl oroqu ine monit oring . 2024 025 [email or web address] [facility], [address] , [address], [place], [address], 12/13/2024 13:56:[address]/di etiti an refer ral 2024 025 [email or web address] Not available 12/13/2024 13:56:53 physi quincy thera pist refer ral - for right hip osteo arthr itis 2023 024 [facility], [address], [place], [address], 01/15/2025 10:50:[address] refer ral - Patie nt to sched ule 2023 024 charlie Engle MD, [address] [facility], [address], [place], [address], 06/06/2024 08:59:18 rheum atolo gist refer ral - for eval of synov itis respo nsive to stero ids 2023 024 [email or web address] Santo Reynolds MD, [address] [place] [address] [address], [place], [address], 12/22/2023 12:01:[address]/di etiti an refer ral 2023 024 boo Not available 12/15/2023 12:14:23 Procedures None recor ded. Surgeries None recor ded. Imaging LDCT, chest , for lung cance r scree moraima - *LDCT Lung Cance r Scree moraima Progr am Annua l Order * The patie nt does not have lung cance r or signs of lung cance r at this time. Shanekae nt has not had a chest CT in the last 12 month s. *HOLGER ED HARSHAL Mccord*I have discu ssed the benef its and risks of lung cance r scree moraima in compl iance with [facility] share d harshal ion lazaro mccord guide lines inclu ding early detec tion, radia tion expos ure, false negat jayant rates , false posit jayant rates , over- diagn osis, incid ental findi ngs, impac t of comor bidit ies and the abili ty or willi ngnes s to under go diagn osis and treat ment if somet jihan nicole rning is found .I have revie wed with the patie nt the impor tance of absti nence if a forme r smoke r, and impor tance of smoki ng cessa tion if a curre nt smoke r. I have furni shed the patie nt with infor siomara barraza and resou rces avail able to quit smoki ng if appro priat e. 2024 025 [email or web address] [facility], [address] [facility], [place], [address], 01/02/2025 09:19:16 MAMMO , scree moraima, bilat eral - Perfo rm Diagn ostic Mammo gram and Breas t Ultra sound if neede d / Perfo rm Ultra sound Guide d Aspir ation and/o r Breas t Biops y if warra nted 2024 025 [email or web address] [facility], [address], [address], [place], [address], 12/13/2024 13:56:53 XR, hip, unila teral , 2 or 3 view - rule out right hip fract ure/a rthri tis 2023 024 [facility], [address] [place], [address], 04/27/2024 16:35:40 MAMMO , scree moraima, bilat eral - Perfo rm Diagn ostic Mammo gram and Breas t Ultra sound if neede d / Perfo rm Ultra sound Guide d Aspir ation and/o r Breas t Biops y if warra nted 2023 024 [facility], [address] [place], [address], 07/27/2024 14:23:10 Medication Orders atorv astat in 20 mg table t 2023 024 [facility], [address] [place] [address], [address], 07/19/2024 12:23:34 bupro pion HCl XL 150 mg 24 hr table t, exten ded relea se 2023 024 [id number], [address] [place], [address], 12/13/2024 13:45:27 ketoc onazo le 2 % shamp oo 2023 024 IR[id number], [address] [place], [address], 04/12/2024 13:28:05 losar winston 100 mg table t 2023 024 fang e [facility], [facility] [place], [address], 10/19/2024 15:40:49 predn isone 10 mg table t 2023 024 fang mackay [id number], [address] [facility], [place], [address], 07/19/2024 11:40:03 Patient TargetsNo targets recorded. Patient Instructions Encounter Date Encounter Id Patient Instructions Last Modified By Organization Details Last Modified Time 12/08/2023 [id number] high cholesterol: care instructions awychowski Not available 12/08/2023 15:17:10 Cervical Cancer Screening awychowski Not available 12/08/2023 15:17:09 sleep apnea: care instructions awychowski Not available 12/08/2023 15:17:09 high blood pressure: care instructions awychowski Not available 12/08/2023 15:17:11 learning about high blood pressure awychowski Not available 12/08/2023 15:17:09 deciding about using medicines to quit smoking awychowski Not available 12/08/2023 15:17:10 Quitting Tobacco: Care Instructions awychowski Not available 12/08/2023 15:17:09 preventing falls: care instructions awychowski Not available 12/08/2023 15:17:10 medicare preventive services guide (female 74yrs and under) awychowski Not available 12/08/2023 15:17:10 prediabetes: care instructions awychowski Not available 12/08/2023 15:17:09 hypothyroidism: care instructions awychowski Not available 12/08/2023 15:17:10 starting a weight loss plan: care instructions awychowski Not available 12/08/2023 15:17:09 Nutrition Referral and Weight Management Follow-up Information awychowski Not available 12/08/2023 15:17:11 01/09/2024 [id number] high cholesterol: care instructions awychowski Not available 01/09/2024 12:17:33 04/12/2024 [id number] polymyalgia rheumatica: care instructions awychowski Not available 04/12/2024 13:27:53 sacroiliac pain: exercises awychowski Not available 04/12/2024 13:27:53 high blood pressure: care instructions awychowski Not available 04/12/2024 13:27:53 learning about high blood pressure awychowski Not available 04/12/2024 13:27:53 07/19/2024 [id number] deciding about using medicines to quit smoking awychowski Not available 07/19/2024 12:23:32 Quitting Tobacco: Care Instructions awychowski Not available 07/19/2024 12:23:31 Learning About Benefits of Quitting Smoking awychowski Not available 07/19/2024 12:23:31 high cholesterol: care instructions awychowski Not available 07/19/2024 12:23:32 high blood pressure: care instructions awychowski Not available 07/19/2024 12:23:31 learning about high blood pressure awychowski Not available 07/19/2024 12:23:32 12/13/2024 [id number] high cholesterol: care instructions awychowski Not available 12/13/2024 13:53:01 Cervical Cancer Screening awychowski Not available 12/13/2024 13:53:01 sleep apnea: care instructions awychowski Not available 12/13/2024 13:53:02 high blood pressure: care instructions awychowski Not available 12/13/2024 13:53:03 learning about high blood pressure awychowski Not available 12/13/2024 13:53:02 deciding about using medicines to quit smoking awychowski Not available 12/13/2024 13:53:02 Quitting Tobacco: Care Instructions awychowski Not available 12/13/2024 13:53:01 preventing falls: care instructions awychowski Not available 12/13/2024 13:53:02 well visit, over 65: care instructions awychowski Not available 12/13/2024 13:53:02 medicare preventive services guide (female 74yrs and under) awychowski Not available 12/13/2024 13:53:02 prediabetes: care instructions awychowski Not available 12/13/2024 13:53:01 hypothyroidism: care instructions awychowski Not available 12/13/2024 13:53:01 starting a weight loss plan: care instructions awychowski Not available 12/13/2024 13:53:02 Nutrition Referral and Weight Management Follow-up Information awychowski Not available 12/13/2024 13:53:02 Reason for Referral Print Shop Stenographer Referral for Sc reening for malignant neoplasm of cervix Patient to schedule Referring Physician: Family Rob Ray, Encounter Date: 12/08/2023 Varnish Melter Helper Referral for Synovitis for eval of synovitis responsive to steroids Referring Physician: Family Rob Ray, Encounter Date: 12/08/2023 Neuroscience Specialist/dietitian Refer ral for Body mass index 30+ - obesity Referring Physician: Family Rob Ray, Encounter Date: 12/08/2023 Physical Therapist Referral for Osteoarthritis of right hip joint for right hip osteoarthritis Referring Physician: Family Rob Ray, Encounter Date: 07/19/2024 Print Shop Stenographer Referral for Sc reening for malignant neoplasm of cervix Patient to schedule Referring Physician: Family Rob Ray, Encounter Date: 12/13/2024 Neuroscience Specialist/dietitian Refer ral for Body mass index 30+ - obesity Referring Physician: Family Rob Ray, Encounter Date: 12/13/2024 Medical Editor Referral for Adult health examination for hydroxychloroquine monitoring. Referring Physician: Family Rob Ray, Encounter Date: 12/13/2024 Results Created Date Observation Date Name Description Value Unit Range Abnormal Flag Note LastModifiedBy Organization Detail LastModifiedTime 12/30/19 24 12/30/2023 TSH TSH 1.67 uIU/m L (0.4-4 .2) Not Available [facility] (Centralized Electronic Ordering - All Locations) Patient Can Go To The Location Of Their Choice, [id number] 12/30/2023 11:40:56 12/30/19 24 12/30/2023 HEMOG LOBIN A1C hemoglobin A1C 5.9 % (4.0-5 .6) high MONIT ORING : In known diabe tic patie nts, hemog lobin A1c targe ts shoul d be discu ssed with healt h care provi danielle. DIAGN OSTIC USE: The Ameri can Diabe yash Assoc iatio n (ADA) and the World Healt h Organ izati on (WHO) recom mend the use of HbA1c to diagn ose diabe yash using a thres hold of 6.5%. Patie nts who have an HbA1c betwe en 5.7% and 6.4% are consi dered at incre ased risk for devel oping diabe yash in the michael [place] ON: False ly low HbA1c resul ts may be obser lore in patie nts with hemol ytic anemi a, homoz ygous forms of abnor mal hemog lobin (e.g. SS, CC, SC), pregn karen, recen t blood loss or hemog lobin F great er than 7%. Fruct osami ne may be used as an alter charly test in these cases . REFER ENCE: ADA: Stand ards of Medic al Care in Diabe yash 2019, The Journ al of Clini [place] and Appli ed Resea [facility] and Educa tion Volum e 43, Suppl ement 1 Not Available [facility] (Centralized Electronic Ordering - All Locations) Patient Can Go To The Location Of Their Choice, 12/30/2023 11:54:35 12/30/1912/30/2023 SEDIM ENTAT ION RATE, AUTOM ATED sedimentatio n rate,automat ed 12 mm/HR (0-20) Not Available [facility] ([facility] Order[facility] - All Locations) Patient Can Go To The Location Of Their Choice, 12/30/2023 12:10:20 12/30/1912/30/2023 COMPR EHENS JAYANT METAB OLIC PANL glucose 91 mg/dL (70-99 ) Not Available [facility] (Centralized Electronic Ordering - All Locations) Patient Can Go To The Location Of Their Choice, 12/30/2023 12:14:11 12/30/1912/30/2023 COMPR EHENS JAYANT METAB OLIC PANL BUN 10 mg/dL (8-23) Not Available [facility] (Centralized Electronic Ordering - All Locations) Patient Can Go To The Location Of Their Choice, 12/30/2023 12:14:11 12/30/1912/30/2023 COMPR EHENS JAYANT METAB OLIC PANL creatinine 0.8 mg/dL (0.5-1 .0) Not Available [facility] (Centralized Electronic Ordering - All Locations) Patient Can Go To The Location Of Their Choice, 12/30/2023 12:14:11 12/30/1912/30/2023 COMPR EHENS JAYANT METAB OLIC PANL sodium 143 mmol/ L (133-1 45) Not Available [facility] (Centralized Electronic Ordering - All Locations) Patient Can Go To The Location Of Their Choice, 12/30/2023 12:14:11 12/30/1912/30/2023 COMPR EHENS JAYANT METAB OLIC PANL potassium 3.8 mmol/ L (3.6-5 .2) Not Available [facility] (Centralized Electronic Ordering - All Locations) Patient Can Go To The Location Of Their Choice, 12/30/2023 12:14:11 12/30/1912/30/2023 COMPR EHENS JAYANT METAB OLIC PANL chloride 102 mmol/ L (98-10 7) Not Available [facility] (Centralized Electronic Ordering - All Locations) Patient Can Go To The Location Of Their Choice, 12/30/2023 12:14:11 12/30/1912/30/2023 COMPR EHENS JAYANT METAB OLIC PANL bicarbonate 28 mmol/ L (22-29 ) Not Available [facility] (Centralized Electronic Ordering - All Locations) Patient Can Go To The Location Of Their Choice, 12/30/2023 12:14:11 12/30/1912/30/2023 COMPR EHENS JAYANT METAB OLIC PANL anion gap 13 (4-17) Not Available [facility] (Centralized Electronic Ordering - All Locations) Patient Can Go To The Location Of Their Choice, 12/30/2023 12:14:11 12/30/1912/30/2023 COMPR EHENS JAYANT METAB OLIC PANL albumin 4.6 gm/dL (3.4-4 .8) Not Available [facility] (Centralized Electronic Ordering - All Locations) Patient Can Go To The Location Of Their Choice, 12/30/2023 12:14:11 12/30/1912/30/2023 COMPR EHENS JAYANT METAB OLIC PANL calcium 9.8 mg/dL (8.6-1 0.5) Not Available [facility] (Centralized Electronic Ordering - All Locations) Patient Can Go To The Location Of Their Choice, 12/30/2023 12:14:11 12/30/19 24 12/30/2023 COMPR EHENS JAYANT METAB OLIC PANL bilirubin,to grover 0.4 mg/dL (0-1.2 ) Not Available [facility] (Centralized Electronic Ordering - All Locations) Patient Can Go To The Location Of Their Choice, 12/30/2023 12:14:11 12/30/1912/30/2023 COMPR EHENS JAYANT METAB OLIC PANL total protein 7.0 gm/dL (6.2-8 .2) Not Available [facility] (Centralized Electronic Ordering - All Locations) Patient Can Go To The Location Of Their Choice, 12/30/2023 12:14:11 12/30/1912/30/2023 COMPR EHENS JAYANT METAB OLIC PANL Ag ratio 1.9 Not Available [facility] (Centralized Electronic Ordering - All Locations) Patient Can Go To The Location Of Their Choice, 12/30/2023 12:14:11 12/30/1912/30/2023 COMPR EHENS JAYANT METAB OLIC PANL AST 13 U/L (0-32) Not Available [facility] (Centralized Electronic Ordering - All Locations) Patient Can Go To The Location Of Their Choice, 12/30/2023 12:14:11 12/30/1912/30/2023 COMPR EHENS JAYANT METAB OLIC PANL alk phos 65 U/L (35-10 4) Not Available [facility] (Centralized Electronic Ordering - All Locations) Patient Can Go To The Location Of Their Choice, 12/30/2023 12:14:11 12/30/1912/30/2023 COMPR EHENS JAYANT METAB OLIC PANL ALT 12 U/L (0-33) Not Available [facility] (Centralized Electronic Ordering - All Locations) Patient Can Go To The Location Of Their Choice, 12/30/2023 12:14:11 12/30/1912/30/2023 COMPR EHENS JAYANT METAB OLIC PANL estimated GFR creatinine 80 mL/mi n/1.7 3_M2 Creat inine based estim ated glome rular filtr ation (eGFR ) in adult s is calcu lated using the Natio nal Kidne y Found ation recom anneliese d 2020 CKD-E PI equat ion. Estim ates GFR from serum creat inine , age and sex. Not Available [facility] (Centralized Electronic Ordering - All Locations) Patient Can Go To The Location Of Their Choice, 12/30/2023 12:14:11 12/30/1912/30/2023 C-MARY CTIVE PROTE IN C-reactive protein 0.7 mg/dL (0-0.5 ) high Not Available [facility] (Centralized Electronic Ordering - All Locations) Patient Can Go To The Location Of Their Choice, 12/30/2023 12:14:13 12/30/1912/30/2023 LIPID PANEL cholesterol, total 239 mg/dL (<200) high Not Available [facility] ([facility] Ordering - All Locations) Patient Can Go To The Location Of Their Choice, 12/30/2023 12:14:15 12/30/1912/30/2023 LIPID PANEL triglyceride 119 mg/dL (<150) Not Available [facility] ([facility] - [facility] Locations) Patient Can Go To The Location Of Their Choice, 12/30/2023 12:14:15 12/30/1912/30/2023 LIPID PANEL HDL chol 74 mg/dL (>39) Not Available [facility] (Centralized Electronic Ordering - All Locations) Patient Can Go To The Location Of Their Choice, 12/30/2023 12:14:15 12/30/1912/30/2023 LIPID PANEL LDL cholesterol, calculated 141 mg/dL (0-130 ) high Not Available [facility] (Centralized Electronic Ordering - All Locations) Patient Can Go To The Location Of Their Choice, 12/30/2023 12:14:15 12/30/1912/30/2023 LIPID PANEL non HDL cholesterol (calc) 165 mg/dL (<160) high Not Available [facility] ([facility] Ordering - All Locations) Patient Can Go To The Location Of Their Choice, 12/30/2023 12:14:15 12/30/1912/30/2023 RHEUM ATOID FACTO R rheumatoid factor 11.0 IU/mL (<14) Not Available [facility] ([facility] Order[facility] - All Locations) Patient Can Go To The Location Of Their Choice, 12/30/2023 12:43:03 12/30/1912/30/2023 LAB ONLY URINA LYSIS appear/color LIGHT SAMUEL W CHUCHO D Not Available [facility] (Centralized Electronic Ordering - All Locations) Patient Can Go To The Location Of Their Choice, 12/30/2023 13:29:12/30/1912/30/2023 LAB ONLY URINA LYSIS sp. gravity 1.016 (1.002 -1.030 ) Not Available [facility] (Centralized Electronic Ordering - All Locations) Patient Can Go To The Location Of Their Choice, 12/30/2023 13:29:12/30/1912/30/2023 LAB ONLY URINA LYSIS urine pH 6.5 (5.0-8 .0) Not Available [facility] (Centralized Electronic Ordering - All Locations) Patient Can Go To The Location Of Their Choice, 12/30/2023 13:29:12/30/1912/30/2023 LAB ONLY URINA LYSIS urine albumin NEGATI VE (neg) Not Available [facility] ([facility]ized Electronic Ordering - All Locations) Patient Can Go To The Location Of Their Choice, 12/30/2023 13:29:12/30/1912/30/2023 LAB ONLY URINA LYSIS urine glucose NEGATI VE (neg) Not Available [facility] ([facility]ized Electronic Ordering - All Locations) Patient Can Go To The Location Of Their Choice, 12/30/2023 13:29:05 12/30/1912/30/2023 LAB ONLY URINA LYSIS urine ketones NEGATI VE (neg) Not Available [facility] ([facility]ized [facility] Ordering - All Locations) Patient Can Go To The Location Of Their Choice, 12/30/2023 13:29:05 12/30/1912/30/2023 LAB ONLY URINA LYSIS urine bilirubin NEGATI VE (neg) Not Available [facility] ([facility]ized Electronic Ordering - All Locations) Patient Can Go To The Location Of Their Choice, 12/30/2023 13:29:05 12/30/19 24 12/30/2023 LAB ONLY URINA LYSIS urine hemoglobin TRACE (neg) abnormal Not Available [facility] ([facility] Locations) Patient Can Go To The Location Of Their Choice, 12/30/2023 13:29:12/30/1912/30/2023 LAB ONLY URINA LYSIS urine nitrite NEGATI VE (neg) Not Available [facility] ([facility]ized [facility] Ordering - All Locations) Patient Can Go To The Location Of Their Choice, 12/30/2023 13:29:12/30/1912/30/2023 LAB ONLY URINA LYSIS urine leukocyte 1+ (neg) abnormal Not Available [facility] ([facility] Order[facility] - All Locations) Patient Can Go To The Location Of Their Choice, 12/30/2023 13:29:12/30/1912/30/2023 LAB ONLY URINA LYSIS urobilinogen NORMAL mg/dL (norm) Not Available [facility] ([facility] Order[facility] - All Locations) Patient Can Go To The Location Of Their Choice, 12/30/2023 13:29:12/30/19 24 12/30/2023 LAB ONLY URINA LYSIS urine WBCs 2 /hpf (0-5) Not Available [facility] ([facility]ized Electronic Ordering - All Locations) Patient Can Go To The Location Of Their Choice, 12/30/2023 13:29:12/30/19 24 12/30/2023 LAB ONLY URINA LYSIS urine RBCs 1 /hpf (0-3) Not Available [facility] (Centralized Electronic Ordering - All Locations) Patient Can Go To The Location Of Their Choice, 12/30/2023 13:29:12/30/19 24 12/30/2023 LAB ONLY URINA LYSIS bacteria MODERA TE hpf (neg) abnormal Not Available [facility] (Centralized Electronic Ordering - All Locations) Patient Can Go To The Location Of Their Choice, 12/30/2023 13:29:12/30/1912/30/2023 LAB ONLY URINA LYSIS mucus SLIGHT /lpf Not Available [facility] (Centralized Electronic Ordering - All Locations) Patient Can Go To The Location Of Their Choice, 12/30/2023 13:29:05 12/30/19 24 12/30/2023 LAB ONLY URINA LYSIS squamous epith 9 /hpf (0-8) high Not Available [facility] ([facility] Ordering - All Locations) Patient Can Go To The Location Of Their Choice, [id number] 12/30/2023 13:29:05 12/30/19 24 01/02/2024 CITRU LLINE PEPTI DE ANTIB RASHARD ccp antibody <1 Refer ence range : 0 to 19 Unit: units (NOTE ) Negat jayant <20 Weak posit jayant 20 - 39 Moder ate posit jayant 40 - 59 Stron g posit jayant >59 Test perfo rmed by [facility], [address] [place] [address] Not Available [facility] (Centralized Electronic Ordering - All Locations) Patient Can Go To The Location Of Their Choice, [id number] 01/02/2024 21:07:07 04/06/2004/07/2024 COMP. METAB OLIC PANEL (14) glucose 101 mg/dL 70-99 above high normal Not Available [facility] ([facility]) [address] [place], [address], 04/07/2024 06:09:07 04/06/20 24 04/07/2024 COMP. METAB OLIC PANEL (14) BUN 13 mg/dL 8-27 Not Available [facility] ([facility]) [address] [place], [address], 04/07/2024 06:09:07 04/06/20 24 04/07/2024 COMP. METAB OLIC PANEL (14) creatinine 0.85 mg/dL 0.57-1 .00 Not Available [facility] ([facility]) [address] [place], [address], 04/07/2024 06:09:07 04/06/20 24 04/07/2024 COMP. METAB OLIC PANEL (14) eGFR 76 mL/mi n/1.7 3 >59 Not Available [facility] ([facility]) [address] [place], [address], 04/07/2024 06:09:07 04/06/20 24 04/07/2024 COMP. METAB OLIC PANEL (14) BUN/creatini ne ratio 15 12-28 Not Available [facility] ([facility]) [address] [place], LISA Landry, [address], 04/07/2024 06:09:07 04/06/20 24 04/07/2024 COMP. METAB OLIC PANEL (14) sodium 142 mmol/ L 134-14 4 Not Available [facility] ([facility]) [address], [place], [address], 04/07/2024 06:09:07 04/06/20 24 04/07/2024 COMP. METAB OLIC PANEL (14) potassium 4.2 mmol/ L 3.5-5. 2 Not Available [facility] ([facility]) [address], [place] Landry, [address], 04/07/2024 06:09:07 04/06/20 24 04/07/2024 COMP. METAB OLIC PANEL (14) chloride 101 mmol/ L 96-106 Not Available [facility] ([facility]) [address], [place], [address], 04/07/2024 06:09:07 04/06/20 24 04/07/2024 COMP. METAB OLIC PANEL (14) carbon dioxide, total 25 mmol/ L 20-29 Not Available [facility] ([facility]) [address] [place], [address], 04/07/2024 06:09:07 04/06/20 24 04/07/2024 COMP. METAB OLIC PANEL (14) calcium 9.9 mg/dL 8.7-10 .3 Not Available [facility] ([facility]) [address] [place], [address], 04/07/2024 06:09:07 04/06/20 24 04/07/2024 COMP. METAB OLIC PANEL (14) protein, total 6.6 g/dL 6.0-8. 5 Not Available [facility] ([facility]) [address] [place], [address], 04/07/2024 06:09:07 04/06/20 24 04/07/2024 COMP. METAB OLIC PANEL (14) albumin 4.4 g/dL 3.9-4. 9 Not Available [facility] ([facility]) [address], [place] Landry, [address], 04/07/2024 06:09:07 04/06/20 24 04/07/2024 COMP. METAB OLIC PANEL (14) globulin, total 2.2 g/dL 1.5-4. 5 Not Available [facility] ([facility]) [address] [place], [address], 04/07/2024 06:09:07 04/06/20 24 04/07/2024 COMP. METAB OLIC PANEL (14) A/G ratio 2.0 Not Available [facility] ([facility]) [address], [place]ry, [address], 04/07/2024 06:09:07 04/06/20 24 04/07/2024 COMP. METAB OLIC PANEL (14) bilirubin, total 0.2 mg/dL 0.0-1. 2 Not Available [facility] ([facility]) [address], [place]ry, [address], 04/07/2024 06:09:07 04/06/20 24 04/07/2024 COMP. METAB OLIC PANEL (14) alkaline phosphatase 73 IU/L 44-121 Not Available [facility] ([facility]) [address], [place], [address], 04/07/2024 06:09:07 04/06/20 24 04/07/2024 COMP. METAB OLIC PANEL (14) AST (SGOT) 14 IU/L 0-40 Not Available [facility] [address] [facility] [place], [address], 04/07/2024 06:09:07 04/06/20 24 04/07/2024 COMP. METAB OLIC PANEL (14) ALT (SGPT) 11 IU/L 0-32 Not Available [facility] ([facility]) [address] [facility] [place], [address], 04/07/2024 06:09:07 04/06/20 24 04/07/2024 LIPID PANEL cholesterol, total 180 mg/dL 100-19 9 Not Available [facility] ([facility]) [address] [facility] [place], [address], 04/07/2024 06:09:08 04/06/20 24 04/07/2024 LIPID PANEL triglyceride s 100 mg/dL 0-149 Not Available [facility] ([facility]) [address] [facility] [place], [address], 04/07/2024 06:09:08 04/06/20 24 04/07/2024 LIPID PANEL HDL cholesterol 64 mg/dL >39 Not Available [facility] ([facility]) [address] [facility] [place], [address], 04/07/2024 06:09:08 04/06/20 24 04/07/2024 LIPID PANEL VLDL cholesterol quincy 18 mg/dL 5-40 Not Available [facility] ([facility]) [address] [facility], [place], [address], 04/07/2024 06:09:08 04/06/20 24 04/07/2024 LIPID PANEL LDL chol calc ([facility]) 98 mg/dL 0-99 Not Available [facility] ([facility]) [address] [facility] [place], [address], 04/07/2024 06:09:08 04/06/20 24 04/07/2024 LIPID PANEL LDL calc comment: QUALITY PROCESS AUDITOR Not Available [facility] ([facility]) [address] [facility] [place], [address], 04/07/2024 06:09:08 04/06/20 24 04/06/2024 HEMOG LOBIN A1C hemoglobin A1C 6.2 % 4.8-5. 6 above high normal Predi abete s: 5.7 - 6.4 Diabe yash: >6.4 Glyce kia contr ol for adult s with diabe yash: <7.0 Not Available [facility] ([facility]) [address] [place], [address], 04/07/2024 06:09:09 07/27/2007/28/2024 COMP. METAB OLIC PANEL (14) glucose 115 mg/dL 70-99 above high normal Not Available [facility] ([facility]) [address] [place], [address], 07/28/2024 06:10:29 07/27/20 24 07/28/2024 COMP. METAB OLIC PANEL (14) BUN 12 mg/dL 8-27 normal Not Available [facility] ([facility]) [address] [place], [address], 07/28/2024 06:10:29 07/27/20 24 07/28/2024 COMP. METAB OLIC PANEL (14) creatinine 0.79 mg/dL 0.57-1 .00 normal Not Available [facility] ([facility]) [address] [place], [address], 07/28/2024 06:10:29 07/27/20 24 07/28/2024 COMP. METAB OLIC PANEL (14) eGFR 82 mL/mi n/1.7 3 >59 normal Not Available [facility] ([facility]) [address] [place], [address], 07/28/2024 06:10:29 07/27/20 24 07/28/2024 COMP. METAB OLIC PANEL (14) BUN/creatini ne ratio 15 12-28 normal Not Available [facility] ([facility]) [address] [place], [address], 07/28/2024 06:10:29 07/27/20 24 07/28/2024 COMP. METAB OLIC PANEL (14) sodium 140 mmol/ L 134-14 4 normal Not Available [facility] ([facility]) [address] [facility] [place], [address], 07/28/2024 06:10:29 07/27/20 24 07/28/2024 COMP. METAB OLIC PANEL (14) potassium 3.8 mmol/ L 3.5-5. 2 normal Not Available [facility] ([facility]) [address] [facility] [place], [address], 07/28/2024 06:10:29 07/27/2007/28/2024 COMP. METAB OLIC PANEL (14) chloride 99 mmol/ L 96-106 normal Not Available [facility] ([facility]) [address] [facility] [place], [address], 07/28/2024 06:10:29 07/27/20 24 07/28/2024 COMP. METAB OLIC PANEL (14) carbon dioxide, total 25 mmol/ L 20-29 normal Not Available [facility] ([facility]) [address] [facility] [place], [address], 07/28/2024 06:10:29 07/27/20 24 07/28/2024 COMP. METAB OLIC PANEL (14) calcium 9.6 mg/dL 8.7-10 .3 normal Not Available [facility] ([facility]) [address] [facility] [place], [address], 07/28/2024 06:10:29 07/27/20 24 07/28/2024 COMP. METAB OLIC PANEL (14) protein, total 7.0 g/dL 6.0-8. 5 normal Not Available [facility] ([facility]) [address] [facility] [place], [address], 07/28/2024 06:10:29 07/27/20 24 07/28/2024 COMP. METAB OLIC PANEL (14) albumin 4.5 g/dL 3.9-4. 9 normal Not Available [facility] ([facility]) [address] [place], [address], 07/28/2024 06:10:29 07/27/20 24 07/28/2024 COMP. METAB OLIC PANEL (14) globulin, total 2.5 g/dL 1.5-4. 5 Not Available [facility] ([facility]) [address] [place], [address], 07/28/2024 06:10:29 07/27/20 24 07/28/2024 COMP. METAB OLIC PANEL (14) bilirubin, total 0.3 mg/dL 0.0-1. 2 normal Not Available [facility] ([facility]) [address] [place], [address], 07/28/2024 06:10:29 07/27/20 24 07/28/2024 COMP. METAB OLIC PANEL (14) alkaline phosphatase 81 IU/L 44-121 normal Not Available [facility] ([facility]) [address] [place], [address], 07/28/2024 06:10:29 07/27/20 24 07/28/2024 COMP. METAB OLIC PANEL (14) AST (SGOT) 15 IU/L 0-40 normal Not Available [facility] ([facility]) [address] [place], [address], 07/28/2024 06:10:29 07/27/20 24 07/28/2024 COMP. METAB OLIC PANEL (14) ALT (SGPT) 10 IU/L 0-32 normal Not Available [facility] ([facility]) [address] [place], [address], 07/28/2024 06:10:29 07/27/20 24 07/28/2024 LDL JOSE STERO L (DIRE CT) LDL chol. (direct) 84 mg/dL 0-99 Not Available [facility] ([facility]) [address] [facility], [place], [address], 07/28/2024 06:10:30 07/27/20 24 07/28/2024 LDL JOSE STERO L (DIRE CT) LDL direct comment: QUALITY PROCESS AUDITOR Not Available [facility] ([facility]) [address] [facility], [place], [address], 07/28/2024 06:10:30 07/27/20 24 07/27/2024 HEMOG LOBIN A1C hemoglobin A1C 6.1 % 4.8-5. 6 above high normal Predi abete s: 5.7 - 6.4 Diabe yash: >6.4 Glyce kia contr ol for adult s with diabe yash: <7.0 Not Available [facility] ([facility]) [address] [facility], [place], [address], 07/28/2024 06:10:31 01/12/20 25 01/11/2025 COMP. METAB OLIC PANEL (14) glucose 97 mg/dL 70-99 normal Not Available [facility] ([facility]) [address] [place], [address], 01/12/2025 18:05:32 01/12/20 25 01/11/2025 COMP. METAB OLIC PANEL (14) BUN 14 mg/dL 8-27 normal Not Available [facility] ([facility]) [address] [place], [address], 01/12/2025 18:05:32 01/12/20 25 01/11/2025 COMP. METAB OLIC PANEL (14) creatinine 0.81 mg/dL 0.57-1 .00 normal Not Available [facility] ([facility]) [address] [place], [address], 01/12/2025 18:05:32 01/12/20 25 01/11/2025 COMP. METAB OLIC PANEL (14) eGFR 80 mL/mi n/1.7 3 >59 normal Not Available [facility] ([facility]) [address] [facility] [place], [address], 01/12/2025 18:05:32 01/12/20 25 01/11/2025 COMP. METAB OLIC PANEL (14) BUN/creatini ne ratio 17 12-28 normal Not Available [facility] ([facility]) [address] [facility] [place], [address], 01/12/2025 18:05:32 01/12/20 25 01/11/2025 COMP. METAB OLIC PANEL (14) sodium 141 mmol/ L 134-14 4 normal Not Available [facility] ([facility]) [address] [facility], [place], [address], 01/12/2025 18:05:32 01/12/20 25 01/11/2025 COMP. METAB OLIC PANEL (14) potassium 3.9 mmol/ L 3.5-5. 2 normal Not Available [facility] ([facility]) [address] [facility] [place], [address], 01/12/2025 18:05:32 01/12/20 25 01/11/2025 COMP. METAB OLIC PANEL (14) chloride 103 mmol/ L 96-106 normal Not Available [facility] ([facility]) [address] [facility] [place], [address], 01/12/2025 18:05:32 01/12/20 25 01/11/2025 COMP. METAB OLIC PANEL (14) carbon dioxide, total 23 mmol/ L 20-29 normal Not Available [facility] ([facility]) [address] [facility] [place], [address], 01/12/2025 18:05:32 01/12/20 25 01/11/2025 COMP. METAB OLIC PANEL (14) calcium 9.7 mg/dL 8.7-10 .3 normal Not Available [facility] ([facility]) [address] [place], [address], 01/12/2025 18:05:32 01/12/20 25 01/11/2025 COMP. METAB OLIC PANEL (14) protein, total 7.0 g/dL 6.0-8. 5 normal Not Available [facility] ([facility]) [address] [place], [address], 01/12/2025 18:05:32 01/12/20 25 01/11/2025 COMP. METAB OLIC PANEL (14) albumin 4.6 g/dL 3.9-4. 9 normal Not Available [facility] ([facility] [address] [facility] [place], [address], 01/12/2025 18:05:32 01/12/20 25 01/11/2025 COMP. METAB OLIC PANEL (14) globulin, total 2.4 g/dL 1.5-4. 5 Not Available [facility] ([facility]) [address] [place], [address], 01/12/2025 18:05:32 01/12/20 25 01/11/2025 COMP. METAB OLIC PANEL (14) bilirubin, total 0.4 mg/dL 0.0-1. 2 normal Not Available [facility] ([facility] [address] [facility] [place], [address], 01/12/2025 18:05:32 01/12/20 25 01/11/2025 COMP. METAB OLIC PANEL (14) alkaline phosphatase 72 IU/L 44-121 normal Not Available [facility] ([facility] [address] [facility] [place], [address], 01/12/2025 18:05:32 01/12/20 25 01/11/2025 COMP. METAB OLIC PANEL (14) AST (SGOT) 15 IU/L 0-40 normal Not Available [facility] ([facility]) [address] [facility], [place], [address], 01/12/2025 18:05:32 01/12/20 25 01/11/2025 COMP. METAB OLIC PANEL (14) ALT (SGPT) 11 IU/L 0-32 normal Not Available [facility] ([facility]) [address] [facility], [place], [address], 01/12/2025 18:05:32 01/12/20 25 01/11/2025 URINA LYSIS , COMPL ETE specific gravity 1.020 1.005- 1.030 normal Not Available [facility] ([facility]) [address] [facility], [place], [address], 01/12/2025 18:05:33 01/12/20 25 01/11/2025 URINA LYSIS , COMPL ETE pH 5.5 5.0-7. 5 normal Not Available [facility] ([facility]) [address] [facility], [place], [address], 01/12/2025 18:05:33 01/12/20 25 01/11/2025 URINA LYSIS , COMPL ETE urine-color Yellow yellow Not Available [facility] ([facility]) [address] [facility], [place], [address], 01/12/2025 18:05:33 01/12/20 25 01/11/2025 URINA LYSIS , COMPL ETE appearance Cloudy clear abnormal Not Available [facility] ([facility]) [address] [facility], [place], [address], 01/12/2025 18:05:33 01/12/20 25 01/11/2025 URINA LYSIS , COMPL ETE WBC esterase 1+ negati ve abnormal Not Available [facility] ([facility]) [address] [place], [address], 01/12/2025 18:05:33 01/12/20 25 01/11/2025 URINA LYSIS , COMPL ETE protein 1+ negati ve/tra ce abnormal Not Available [facility] ([facility]) [address] [facility], [place], [address], 01/12/2025 18:05:33 01/12/20 25 01/11/2025 URINA LYSIS , COMPL ETE glucose Negati ve negati ve Not Available [facility] ([facility]) [address] [facility], [place], [address], 01/12/2025 18:05:33 01/12/20 25 01/11/2025 URINA LYSIS , COMPL ETE ketones Trace negati ve abnormal Not Available [facility] ([facility]) [address] [place], [address], 01/12/2025 18:05:33 01/12/20 25 01/11/2025 URINA LYSIS , COMPL ETE occult blood Negati ve negati ve Not Available [facility] ([facility]) [address] [place], [address], 01/12/2025 18:05:33 01/12/20 25 01/11/2025 URINA LYSIS , COMPL ETE bilirubin Negati ve negati ve Not Available [facility] ([facility]) [address] [place], [address], 01/12/2025 18:05:33 01/12/20 25 01/11/2025 URINA LYSIS , COMPL ETE urobilinogen ,semi-qn 0.2 mg/dL 0.2-1. 0 normal Not Available [facility] ([facility]) [address] [place], [address], 01/12/2025 18:05:33 01/12/20 25 01/11/2025 URINA LYSIS , COMPL ETE nitrite, urine Negati ve negati ve Not Available [facility] ([facility]) [address] [place], [address], 01/12/2025 18:05:33 01/12/20 25 01/11/2025 URINA LYSIS , COMPL ETE microscopic examination See below: Micro scopi c was indic ated and was perfo rmed. Not Available [facility] ([facility]) [address] [facility], [place], [address], 01/12/2025 18:05:33 01/12/20 25 01/11/2025 URINA LYSIS , COMPL ETE microscopic examination QUALITY PROCESS AUDITOR Not Available [facility] ([facility]) [address] [facility], [place], [address], 01/12/2025 18:05:33 01/12/20 25 01/12/2025 URINA LYSIS , COMPL ETE WBC 6-10 /hpf 0 - 5 abnormal Not Available [facility] ([facility]) [address] [facility], [place], [address], 01/12/2025 18:05:33 01/12/20 25 01/12/2025 URINA LYSIS , COMPL ETE RBC None seen /hpf 0 - 2 Not Available [facility] ([facility]) [address] [facility], [place], [address], 01/12/2025 18:05:33 01/12/20 25 01/12/2025 URINA LYSIS , COMPL ETE epithelial cells (non renal) >10 /hpf 0 - 10 abnormal Not Available [facility] ([facility]) [address] [facility], [place], [address], 01/12/2025 18:05:33 01/12/20 25 01/12/2025 URINA LYSIS , COMPL ETE epithelial cells (renal) QUALITY PROCESS AUDITOR Not Available [facility] ([facility]) [address] [facility], [place], [address], 01/12/2025 18:05:33 01/12/20 25 01/12/2025 URINA LYSIS , COMPL ETE casts None seen /lpf none seen Not Available [facility] ([facility]) [address] [facility], [place], [address], 01/12/2025 18:05:33 01/12/20 25 01/12/2025 URINA LYSIS , COMPL ETE cast type QUALITY PROCESS AUDITOR Not Available [facility] ([facility]) [address] [facility], [place], [address], 01/12/2025 18:05:33 01/12/20 25 01/12/2025 URINA LYSIS , COMPL ETE crystals QUALITY PROCESS AUDITOR Not Available [facility] ([facility]) [address] [facility], [place], [address], 01/12/2025 18:05:33 01/12/20 25 01/12/2025 URINA LYSIS , COMPL ETE crystal type QUALITY PROCESS AUDITOR Not Available [facility] ([facility]) [address] [facility], [place], [address], 01/12/2025 18:05:33 01/12/20 25 01/12/2025 URINA LYSIS , COMPL ETE mucus threads QUALITY PROCESS AUDITOR Not Available [facility] ([facility]) [address] [facility], [place], [address], 01/12/2025 18:05:33 01/12/20 25 01/12/2025 URINA LYSIS , COMPL ETE bacteria Many none seen/f ew abnormal Not Available [facility] ([facility]) [address] [facility], [place], [address], 01/12/2025 18:05:33 01/12/20 25 01/12/2025 URINA LYSIS , COMPL ETE yeast Presen t none seen abnormal Not Available [facility] ([facility]) [address] [place], [address], 01/12/2025 18:05:33 01/12/20 25 01/12/2025 URINA LYSIS , COMPL ETE trichomonas QUALITY PROCESS AUDITOR Not Available [facility] ([facility]) [address] [place], [address], 01/12/2025 18:05:33 01/12/20 25 01/12/2025 URINA LYSIS , COMPL ETE comment QUALITY PROCESS AUDITOR Not Available [facility] ([facility]) [address] [place], [address], 01/12/2025 18:05:33 01/12/20 25 01/11/2025 LIPID PANEL cholesterol, total 149 mg/dL 100-19 9 normal Not Available [facility] ([facility]) [address] [place], [address], 01/12/2025 18:05:34 01/12/20 25 01/11/2025 LIPID PANEL triglyceride s 70 mg/dL 0-149 normal Not Available [facility] ([facility]) [address] [place], [address], 01/12/2025 18:05:34 01/12/20 25 01/11/2025 LIPID PANEL HDL cholesterol 57 mg/dL >39 normal Not Available [facility] ([facility]) [address] [place], [address], 01/12/2025 18:05:34 01/12/20 25 01/11/2025 LIPID PANEL VLDL cholesterol quincy 14 mg/dL 5-40 Not Available [facility] ([facility]) [address] [place], [address], 01/12/2025 18:05:34 01/12/20 25 01/11/2025 LIPID PANEL LDL chol calc ([facility]) 78 mg/dL 0-99 Not Available [facility] ([facility]) [address] [place], [address], 01/12/2025 18:05:34 01/12/20 25 01/11/2025 LIPID PANEL LDL calc comment: QUALITY PROCESS AUDITOR Not Available [facility] ([facility]) [address] [place], [address], 01/12/2025 18:05:34 01/12/20 25 01/12/2025 HEMOG LOBIN A1C hemoglobin A1C 5.9 % 4.8-5. 6 above high normal Predi abete s: 5.7 - 6.4 Diabe yash: >6.4 Glyce kia contr ol for adult s with diabe yash: <7.0 Not Available [facility] ([facility]) [address] [facility], [place], [address], 01/12/2025 18:05:34 01/12/20 25 01/11/2025 TSH RFX ON ABNOR MAL TO FREE T4 TSH 2.520 uIU/m L 0.450- 4.500 normal Not Available [facility] ([facility]) [address] [facility], [place], [address], 01/12/2025 18:05:35 01/19/20 25 01/18/2025 UA WITH CULTU RE REFLE X specific gravity 1.022 1.005- 1.030 normal Not Available [facility] ([facility]) [address] [facility], [place], [address], 01/20/2025 10:05:34 01/19/20 25 01/18/2025 UA WITH CULTU RE REFLE X pH 5.5 5.0-7. 5 normal Not Available [facility] ([facility]) [address] [place], [address], 01/20/2025 10:05:34 01/19/20 25 01/18/2025 UA WITH CULTU RE REFLE X urine-color Yellow yellow Not Available [facility] ([facility]) [address] [place], [address], 01/20/2025 10:05:34 01/19/20 25 01/18/2025 UA WITH CULTU RE REFLE X appearance Clear clear Not Available [facility] ([facility]) [address] [place], [address], 01/20/2025 10:05:34 01/19/20 25 01/18/2025 UA WITH CULTU RE REFLE X WBC esterase 2+ negati ve abnormal Not Available [facility] ([facility]) [address] [facility], [place], [address], 01/20/2025 10:05:34 01/19/20 25 01/18/2025 UA WITH CULTU RE REFLE X protein 1+ negati ve/tra ce abnormal Not Available [facility] ([facility]) [address] [facility], [place], [address], 01/20/2025 10:05:34 01/19/20 25 01/18/2025 UA WITH CULTU RE REFLE X glucose Negati ve negati ve Not Available [facility] ([facility]) [address] [facility], [place], [address], 01/20/2025 10:05:34 01/19/20 25 01/18/2025 UA WITH CULTU RE REFLE X ketones Trace negati ve abnormal Not Available [facility] ([facility]) [address] [facility], [place], [address], 01/20/2025 10:05:34 01/19/20 25 01/18/2025 UA WITH CULTU RE REFLE X occult blood Negati ve negati ve Not Available [facility] ([facility]) [address] [facility], [place], [address], 01/20/2025 10:05:34 01/19/20 25 01/18/2025 UA WITH CULTU RE REFLE X bilirubin Negati ve negati ve Not Available [facility] ([facility]) [address] [place], [address], 01/20/2025 10:05:34 01/19/20 25 01/18/2025 UA WITH CULTU RE REFLE X urobilinogen ,semi-qn 0.2 mg/dL 0.2-1. 0 normal Not Available [facility] ([facility]) [address] [facility], [place], [address], 01/20/2025 10:05:34 01/19/20 25 01/18/2025 UA WITH CULTU RE REFLE X nitrite, urine Negati ve negati ve Not Available [facility] ([facility]) [address] [facility], [place], [address], 01/20/2025 10:05:34 01/19/20 25 01/18/2025 UA WITH CULTU RE REFLE X microscopic examination See below: Micro scopi c was indic ated and was perfo rmed. Not Available [facility] ([facility]) [address] [facility], [place], [address], 01/20/2025 10:05:34 01/19/20 25 01/19/2025 UA WITH CULTU RE REFLE X WBC 6-10 /hpf 0 - 5 abnormal Not Available [facility] ([facility]) [address] [facility], [place], [address], 01/20/2025 10:05:34 01/19/20 25 01/19/2025 UA WITH CULTU RE REFLE X RBC None seen /hpf 0 - 2 Not Available [facility] ([facility]) [address] [facility], [place], [address], 01/20/2025 10:05:34 01/19/20 25 01/19/2025 UA WITH CULTU RE REFLE X epithelial cells (non renal) 0-10 /hpf 0 - 10 Not Available [facility] ([facility]) [address] [facility], [place], [address], 01/20/2025 10:05:34 01/19/20 25 01/19/2025 UA WITH CULTU RE REFLE X epithelial cells (renal) QUALITY PROCESS AUDITOR Not Available [facility] ([facility]) [address] [facility], [place], [address], 01/20/2025 10:05:34 01/19/20 25 01/19/2025 UA WITH CULTU RE REFLE X casts None seen /lpf none seen Not Available [facility] ([facility]) [address], [place], [address], 01/20/2025 10:05:34 01/19/20 25 01/19/2025 UA WITH CULTU RE REFLE X cast type QUALITY PROCESS AUDITOR Not Available [facility] ([facility]) [address], [place], [address], 01/20/2025 10:05:34 01/19/20 25 01/19/2025 UA WITH CULTU RE REFLE X crystals QUALITY PROCESS AUDITOR Not Available [facility] ([facility]) [address], [place], [address], 01/20/2025 10:05:34 01/19/20 25 01/19/2025 UA WITH CULTU RE REFLE X crystal type QUALITY PROCESS AUDITOR Not Available [facility] ([facility]) [address], [place], [address], 01/20/2025 10:05:34 01/19/20 25 01/19/2025 UA WITH CULTU RE REFLE X mucus threads QUALITY PROCESS AUDITOR Not Available [facility] ([facility]) [address], [place], [address], 01/20/2025 10:05:34 01/19/20 25 01/19/2025 UA WITH CULTU RE REFLE X bacteria Modera te none seen/f ew abnormal Not Available [facility] ([facility]) [address], [place], [address], 01/20/2025 10:05:34 01/19/20 25 01/19/2025 UA WITH CULTU RE REFLE X yeast QUALITY PROCESS AUDITOR Not Available [facility] ([facility]) [address], [place], [address], 01/20/2025 10:05:34 03/28/20 25 01/19/2025 UA WITH CULTU RE REFLE X trichomonas QUALITY PROCESS AUDITOR Not Available [facility] p ([facility]) [address] [facility], [place], [address], 01/20/2025 10:05:34 01/19/20 25 01/19/2025 UA WITH CULTU RE REFLE X comment QUALITY PROCESS AUDITOR Not Available [facility] ([facility]) [address] [facility], [place], [address], 01/20/2025 10:05:34 01/19/20 25 01/19/2025 UA WITH CULTU RE REFLE X urinalysis reflex Commen t This speci men has refle xed to a Urine Cultu re. Not Available [facility] ([facility]) [address] [facility], [place], [address], 01/20/2025 10:05:34 01/19/20 25 01/20/2025 UA WITH CULTU RE REFLE X urine culture, routine Final report Not Available [facility] ([facility]) [address] [facility], [place], [address], 01/20/2025 10:05:34 01/19/20 25 01/20/2025 UA WITH CULTU RE REFLE X result 1 COMMEN T Mixed uroge nital ashly Great er than 100,0 00 colon y formi ng units per mL Not Available [facility] ([facility]) [address] [facility], [place], [address], 01/20/2025 10:05:34 11/11/19 24 11/11/2023 CT chest ldct lung progr am CT Chest LDCT Lung Progra m Reason : Other: ; LDCT LUNG CA SCREEN ING PROGRA M, EVY T 35 PK YR HX; Clinic al Questi on(s): Other: ; Specia l Instru ctions : BOOK AT [address] [facility], [place] BOOK AFTER [address] IN THE LAST 12 MONTHS NO LUNG CA OR SIGNS OR SYMPTO MS OF LUNG CA Visit type: Annual Screen ing TECHNI QUE: Low-do se helica l CT of the chest withou t IV contra st (Adult Lung Cancer Screen ing) protoc ol was perfor med. Harrison l reform ats were obtain ed. Weight -based protoc ol using automa tic tube modula tion was used to optimi ze exposu re parame ters. CTDIvo l Body: 3.62 mGy, DLP Body: 138 mGy*cm . COMPAR UVALDO: None FINDIN GS: LUNG NODULE S (measu red on thin axial series ): RIGHT lung: * Unchan ged 4 mm nodule in the right middle lobe (166/4 ). * New 3 mm nodule in the right lower lobe (184/4 ) * Unchan ged 3 mm subple ural nodule in the right middle lobe (188/4 ). * Unchan ged 4 mm subple ural nodule in the right lower lobe (219/4 ). * A few additi onal sub-3 mm subple ural nodule s in the right lower lobe are unchan ged. LEFT lung: * Unchan ged 3 mm nodule in the left upper lobe (121/4 ). * Unchan ged 3 mm nodule ground glass nodule in the left upper lobe (153/4 ). * Unchan ged 4 mm nodule in the left lower lobe (230/4 ). * Unchan ged 3 mm subple ural nodule in the left lower lobe (236/4 ). * A few additi onal sub-2 mm pulmon britney nodule s are noted which are unchan ged. OTHER FINDIN GS: Fluid Designer view findin gs, lines and tubes: None. Trache a and airway s: Patent withou t eviden ce of trache al or endobr onchia l lesion . Lungs and pleura : Mild centri lobula r emphys sophy. No effusi on or pneumo thorax . Medias tinum and cecily: No mass or hemato ma. No medias tinal or hilar lympha denopa thy. No esopha geal abnorm ality. Heart: Heart is normal in size. No perica rdial effusi on. Modera te harrison ry artery calcif icatio n. Aorta: Modera te vascul ar calcif icatio n but no aneury sm. Pulmon britney arteri es: Normal calibe r. Chest wall soft tissue s: No acute abnorm ality. Diaphr agm: Intact . Upper abdome n: No acute proces s in the upper abdome n. Mild thicke moraima of the adrena l glands bilate rally, nonspe cific, though may be relate d to hyperp lasia. Bones: No acute abnorm ality. IMPRES LUKE: 1. Single new 3mm nodule in the right lower lobe. Additi onal bilate ral pulmon britney nodule s are stable . LungRa d Catego ry: 2 Benign Appear ance or Behavi or. Nodule s with a very low likeli dodson of becomi ng a clinic ally active cancer due to size or lack of growth . Contin ue annual screen ing with LDCT in 12 months . 2. No signif icant additi onal findin gs requir ing furthe r evalua tion. Lung-R AD Catego ry Modifi er: None. Catego rizati on based on Lung-R ADS 2021 criter ia. https: //[email or web address] /Lung- RADS/L jc-RA [email or web address].pdf WSN: [id number] Orderi ng Physic lina: Ken Tamez Dictat ed By: Bala Espino MD Dictat ed Date/T brian: 10:40 a Review ed By: Bala Espino MD Signed By: Bala Espino MD Signed Date/T brian: 10:40 am Transc ribed By: DES Transc ribed Date/T brian: 10:23 am Patien t [facility] [address] , [place], [address], 12/08/2023 15:08:32 04/27/20 24 04/27/2024 XR, hip, unila teral , 2 or 3 view Hip Comp 2 Views Right INDICA TION: Right hip pain. Rule out fractu re arthri tis COMPAR UVALDO: None. FINDIN GS: No fractu re or disloc ation. Modera te chroni c degene rative change s of the right hip with modera te joint space narrow ing. Normal femora l head contou r withou t eviden ce of avascu lar necros is. Few tiny calcif ied phlebo liths in the pelvis IMPRES LUKE: Modera te degene rative change s with no acute fractu re or osseou s abnorm ality. I have person ally review ed the images and I agree with this report . WSN: [id number] Fortino castillo Physic lina: Ken Tamez Dictat ed By: El Davis MD Dictat ed Date/T brian: 4:32 pm Review ed By: Chris Mata MD Signed By: Chris Mata MD Signed Date/T brian: 4:37 pm Transc ribed By: DES Transc ribed Date/T brian: 4:30 pm Patien t Class: Outpat ient [facility] (Outpt Imaging) [address] , [place], [address], 07/19/2024 12:13:15 07/27/20 24 07/27/2024 MAMMO , scree moraima, digit al, bilat eral PROCED URE: MM Digita l Mammo Screen ing INDICA TION: Screen ing. No known palpab le abnorm alitie s. COMPAR UVALDO: Dating back to 019 TECHNI QUE: Full-f ield digita l CC and MLO 3D tomosy nthesi s images of both breast s were acquir ed. Comput er-aid ed detect ion (CAD) was utiliz ed in the interp retati on of this study. DENSIT Y: There are scatte red areas of fibrog landul ar densit y. FINDIN GS: No suspic ious masses , suspic ious microc alcifi cation s, or areas of vannessa ectura l distor tion are seen in either breast to sugges t malign karen. IMPRES LUKE: No mammog raphic eviden ce of malign karen. RECOMM ENDATI ON: Annual mammog raphic screen ing BI-RAD S: 1 (Negat jayant) Lay letter mailed to rashad sanders WSN: [id number] Orderi ng Physic lina: Ken Tamez ed By: Kenrick Hutson MD Dictat ed Date/T brian: 2:18 pm Review ed By: Kenrick Hutson MD Signed By: Kenrick Hutson MD Signed Date/T brian: 2:18 pm Transc ribed By: CSB Transc riptio n Date/T brian: 2:17 pm Birads : Rashad sanders Class: Outpat ient [facility] (Outpt Imaging) [address] [facility], [place], [address], 12/13/2024 13:46:42 07/27/2007/27/2024 MAMMO , scree moraima, bilat eral No observ ation record ed. [facility] [address], [place], [address], 12/13/2024 13:46:42 Result Notes None recorded. Problems Name Problem SNOMED Code Status Onset Date Resolution Date Notes Provider Name and Address Organization Details Recorded Time Screenin g for malignan t neoplasm of breast Completed 201106/03/2014 RECORDED 10/18/20 12 3:30PM BY SUSHILA LEYVA MA, ANNOTATI ON/DAVION Griffiths MD [address] [address], [place], [address] , [facility] 6 12:08:55 Infectiv e otitis externa [id number] Completed 201206/03/2014 RECORDED 07/18/20 13 1:20PM BY SUSHILA LEYVA MA, ANNOTATI ON/DAVION Griffiths MD [address] [facility] [address], [place], [address] , [facility] 6 12:08:54 Contact dermatit is [id number] Completed 201306/03/2014 IMPRESSI ON: PERSISTA NT AND NOT RESPONDI NG TO TOPICAL ANTIFUNG AL THERAPY. WILL ASK DERM FOR OPINION. ; RECORDED 02/14/20 14 3:11PM BY SUSHILA LEYVA MA, MORENO SR/DAVION Griffiths MD [address] [facility] [address], [place], [address] , [facility] 6 12:08:54 Edema [id number] Completed 201206/03/2014 IMPRESSI ON: HAD MILD PORTEINU EVER IN THE PAST. WILL REASSESS . LOW PRETEST PROB FOR DVT BUT IF D-DIMER ELEVATED WILL NEED U/S. IF LABS/YASH TING NORMAL, MAY NEED TO REDUCE CCB DOSE THIS MAY BE CONTRIBU TING WELL.; RECORDED 05/22/20 13 11:44AM BY SUSHILA LEYVA MA, MORENO ON/DAVION Griffiths MD [address] [facility] [address], [place], [address] , [facility] 6 12:08:54 Erythema nodosum [id number] Completed 201206/03/2014 STORY: SECONDAR Y TO STREP THROAT; IMPRESSI ON: WITH RECENT SXS I DO NOT SUSPECT OTHER CAUSE OF EM BESIDES STREP THROAT EVEN THOUGH RAPID STREP NEG; RECORDED 12/06/19 13 8:49AM BY SUSHILA LEYVA MA, MORENO SR/DAVION Griffiths MD [address] [facility] [address], [place], [address] , [facility] 6 12:08:54 Adult health examinat ion Completed 201206/03/2014 IMPRESSI ON: WILL UPDATE IMMUNIZA TION STATUS AND SCREEN BASED ON RISK FACTORS. REGULAR DENTAL CARE AND SEATBELT USE ADVISED. DISTRACT ED DRIVING DISCUSSE Lisandro. COLONOSC OPY SCREENNG UTD. PT DUE FOR CERVICAL CANCER SCREENIN G AND CBE BUT HAS APPT WITH RESIDENTIAL PROPERTY CONSULTANT NEXT MONTH.; RECORDED 07/18/20 13 1:20PM BY SUSHILA LEYVA MA, MORENO SR/DAVION Griffiths MD [address] [address], [place], [address] , [facility] 6 12:08:55 Blood in urine [id number] Completed 201306/03/2014 IMPRESSI ON: PRESENT PREVIOUS LY. WILL REASSESS AND REFER TO UROLOGY IF PERSISTA NT/WORSE .; RECORDED 03/22/20 14 10:34AM BY SUSHILA LEYVA MA, MORENO ON/DAVION Griffiths MD [address] [address], [place], [address] , [facility] 7 14:19:11 Hypokale erasmo 73436628 Completed 201306/03/2014 IMPRESSI ON: REASSESS OFF OF DIURETIC . IF PERSISTA NT WILL NEED FURTHER EVAL.; RECORDED 02/14/20 14 3:11PM BY SUSHILA LEYVA MA, MORENO ON/DAVION Griffiths MD [address] [address], [place], [address] , [facility] 6 12:08:54 Impaired fasting glycemia 323253073 Completed 201306/03/2014 IMPRESSI ON: INCREASE D PHYSICAL ACTIVITY , AND WEIGHT LOSS ADVISED. WILL FOLLOW.; RECORDED 02/14/20 14 3:11PM BY SUSHILA LEYVA MA, MORENO ON/DAVION Griffiths MD [address] [address], [place], [address] , [facility] 6 12:08:54 Pain in limb 14156037 Completed 201306/03/2014 IMPRESSI ON: ? NEUROGEN IC VS VASCULAR . HAS F/U WITH PMR AND PT. IF PERSISTA NT/WORSE WILL PURSUE VASCULAR EVALUATI ON.; RECORDED 02/14/20 14 3:11PM BY SUSHILA LEYVA MA, MORENO ON/DAVION Griffiths MD [address] [address], [place], [address] , [facility] 6 12:08:54 Fibromyo sitis 75503536 Completed 201306/03/2014 IMPRESSI ON: MILD CK ELEVATIO N OF DOUBTFUL SIGNIFIC ANCE. WILL REASESS WITH OTHER LABS.; RECORDED 02/14/20 14 3:11PM BY SUSHILA LEYVA MA, ANNOTATI ON/ADDEN DUM Ken Griffiths MD [address], [place], [address] , [facility] 6 12:08:54 Immuniza tion refused Completed 201306/03/2014 RECORDED 02/14/20 14 3:11PM BY SUSHILA LEYVA MA, ANNOTATI ON/ADDEN DUM Ken Griffiths MD [address] [facility] [address], [place], [address] , [facility] 6 12:08:55 Streptoc occal sore throat 05877602 Completed 201206/03/2014 RECORDED 12/06/19 13 8:49AM BY SUSHILA LEYVA MA, ANNOTATI ON/ADDEN DUM Ken Griffiths MD [address] [facility] [address], [place], [address] , [facility] 6 12:08:54 Active or passive immuniza tion Completed 201206/03/2014 RECORDED 05/23/20 13 11:50AM BY KEN Garcia MD, OFFICE VISIT Ken Griffiths MD [address], [place], [address] , [facility] 6 12:08:55 Proteinu ever [id number] Completed 201206/03/2014 IMPRESSI ON: MILD BUT PERSISTE NT ISSUE. WILL REASSESS AND IMAGE TO RULE OUT ANATOMIC ANOMALIE S.; RECORDED 05/22/20 13 11:44AM BY SUSHILA LEYVA MA, ANNOTATI ON/ADDEN DUM Ken Griffiths MD [address], [place], [address] , [facility] 6 12:08:55 Influenz a vaccine needed [id number] 06 Completed 201106/03/2014 RECORDED 10/18/20 12 3:36PM BY SUSHILA LEYVA MA, OFFICE VISIT Ken Griffiths MD [address] [facility] [address], [place], [address] , [facility] 6 12:08:55 Dermatop hytosis of the body Completed 201206/03/2014 IMPRESSI ON: SLOWLY RESPONDI NG. WILL TRY DIFFEREN T AGENT.; RECORDED 09/03/20 13 11:43AM BY SUSHILA LEYVA MA, ANNOTATI ON/ADDEN DUM Ken Griffiths MD [address] [address], [place], [address] , [facility] 6 12:08:54 Acute upper respirat ory infectio n [id number] Completed 201305/20/2016 IMPRESSI ON: SUPPORTI VE, SYMPTOMA TIC TX ADVISED. CALL INB/WORS E OVER NEXT 5-7 DAYS PT DOES HAVE HX OF TOBACCO USE.; RECORDED 03/22/20 14 11:05AM BY KEN Garcia MD, OFFICE VISIT Ken Griffiths MD [address] [address], [place], [address] , [facility] 6 12:08:54 Screenin g for malignan t neoplasm of breast Completed 201105/07/2014 RECORDED 10/18/20 12 3:30PM BY SUSHILA LEYVA MA, ANNOTATI ON/ADDEN DUM Ken Griffiths MD [address] [facility] [address], [place], [address] , [facility] 6 12:08:55 Infectiv e otitis externa 29634063 Completed 201205/07/2014 RECORDED 07/18/20 13 1:20PM BY SUSHILA LEYVA MA, ANNOTATI ON/DAVION Griffiths MD [address] [facility] [address], [place], [address] , [facility] 6 12:08:54 Tobacco dependen ce syndrome 99709578 Active 2013 Not Available [facility] 3 18:17:34 Tobacco dependen ce syndrome 72437972 Completed 201305/07/2014 RECORDED 02/14/20 14 3:11PM BY SUSHILA LEYVA MA, MORENO ON/DAVION Griffiths MD [address] [facility] [address], [place], [address] , [facility] 7 11:51:11 Contact dermatit is [id number] Completed 201305/07/2014 IMPRESSI ON: PERSISTA NT AND NOT RESPONDI NG TO TOPICAL ANTIFUNG AL THERAPY. WILL ASK DERM FOR OPINION. ; RECORDED 02/14/20 14 3:11PM BY SUSHILA LEYVA MA, MORENO ON/DAVION Griffiths MD [address] [facility] [address], [place], [address] , [facility] 6 12:08:54 Edema [id number] Completed 201205/07/2014 IMPRESSI ON: HAD MILD PORTEINU EVER IN THE PAST. WILL REASSESS . LOW PRETEST PROB FOR DVT BUT IF D-DIMER ELEVATED WILL NEED U/S. IF LABS/YASH TING NORMAL, MAY NEED TO REDUCE CCB DOSE THIS MAY BE CONTRIBU TING WELL.; RECORDED 05/22/20 13 11:44AM BY SUSHILA LEYVA MA, ANNOTATI ON/DAVION Griffiths MD [address] [facility] [address], [place], [address] , [facility] 6 12:08:54 Erythema nodosum [id number] Completed 201205/07/2014 STORY: SECONDAR Y TO STREP THROAT; IMPRESSI ON: WITH RECENT SXS I DO NOT SUSPECT OTHER CAUSE OF EM BESIDES STREP THROAT EVEN THOUGH RAPID STREP NEG; RECORDED 12/06/19 13 8:49AM BY SUSHILA LEYVA MA, QUIN[place] ON/ADDEN DUM Ken Griffiths MD [address] [facility] [address], [place], [address] , [facility] 6 12:08:54 Adult health examinat ion Completed 201205/07/2014 IMPRESSI ON: WILL UPDATE IMMUNIZA TION STATUS AND SCREEN BASED ON RISK FACTORS. REGULAR DENTAL CARE AND SEATBELT USE ADVISED. DISTRACT ED DRIVING DISCUSSE D. COLONOSC OPY SCREENNG UTD. PT DUE FOR CERVICAL CANCER SCREENIN G AND CBE BUT HAS APPT WITH RESIDENTIAL PROPERTY CONSULTANT NEXT MONTH.; RECORDED 07/18/20 13 1:20PM BY SUSHILA LEYVA MA, ANNOTATI ON/ADDEN DUM Ken Griffiths MD [address] [facility] [address], [place], [address] , [facility] 6 12:08:55 Blood in urine [id number] Completed 201305/29/2017 IMPRESSI ON: PRESENT PREVIOUS LY. WILL REASSESS AND REFER TO UROLOGY IF PERSISTA NT/WORSE .; RECORDED 02/20/20 14 2:07PM BY KEN Garcia MD, OFFICE VISIT Ken Griffiths MD [address] [facility] [address], [place], [address] , [facility] 7 14:19:11 Pure hypercho lesterol emia 707282742 Active 2013 Not Available [facility] 3 18:17:33 Essentia l hyperten luke 98050356 Active 2013 Not Available [facility] 3 18:17:34 Essentia l hyperten luke 02971706 Completed 201305/07/2014 IMPRESSI ON: WELL CONTROLL ED OFF OF DIURETIC AND HYPOKALE ERASMO RESOLVED . WILL CONTINUE CURRENT REGIMEN. ; RECORDED 02/14/20 14 3:11PM BY SUSHILA LEYVA MA, ANNOTATI ON/ADDEDNA Griffiths MD [address] [facility] [address], [place], [address] , [facility] 7 14:58:13 Hypokale erasmo 65479401 Completed 201305/07/2014 IMPRESSI ON: REASSESS OFF OF DIURETIC . IF PERSISTA NT WILL NEED FURTHER EVAL.; RECORDED 02/14/20 14 3:11PM BY SUSHILA LEYVA MA, MORENO ON/DAVION Griffiths MD [address] [facility] [address], [place], [address] , [facility] 6 12:08:54 Hypothyr oidism 18175149 Active 2013 Not Available [facility] 3 18:17:34 Impaired fasting glycemia 519056575 Completed 201305/07/2014 IMPRESSI ON: INCREASE D PHYSICAL ACTIVITY , AND WEIGHT LOSS ADVISED. WILL FOLLOW.; RECORDED 02/14/20 14 3:11PM BY SUSHILA LEYVA MA, MORENO ON/DAVION Griffiths MD [address] [facility] [address], [place], [address] , [facility] 6 12:08:54 Pain in limb 19156446 Completed 201305/07/2014 IMPRESSI ON: ? NEUROGEN IC VS VASCULAR . HAS F/U WITH PMR AND PT. IF PERSISTA NT/WORSE WILL PURSUE VASCULAR EVALUATI ON.; RECORDED 02/14/20 14 3:11PM BY SUSHILA LEYVA MA, ANNOTATI ON/DAVION Griffiths MD [address] [facility] [address], [place], [address] , [facility] 6 12:08:54 Fibromyo sitis 94801116 Completed 201305/07/2014 IMPRESSI ON: MILD CK ELEVATIO N OF DOUBTFUL SIGNIFIC ANCE. WILL REASESS WITH OTHER LABS.; RECORDED 02/14/20 14 3:11PM BY SUSHILA LEYVA MA, ANNOTATI ON/ADDEN DUM Ken Griffiths MD [address], [place], [address] , [facility] 6 12:08:54 Obesity 851602974 Completed 201308/26/2016 RECORDED 03/22/20 14 10:35AM BY SUSHILA LEYVA MA, OFFICE VISIT Ken Griffiths MD [address] [facility] [address], [place], [address] , [facility] 6 14:13:46 Obstruct jayant sleep apnea syndrome 29532860 Active 2013 Not Available [facility] 3 18:17:34 Immuniza tion refused Completed 201305/07/2014 RECORDED 02/14/20 14 3:11PM BY SUSHILA LEYVA MA, ANNOTATI ON/ADDEN DUM Ken Griffiths MD [address] [facility] [address], [place], [address] , [facility] 6 12:08:55 Streptoc occal sore throat 65845363 Completed 201205/07/2014 RECORDED 12/06/19 13 8:49AM BY SUSHILA LEYVA MA, ANNOTATI ON/ADDEN DUM Ken Griffiths MD [address] [facility] [address], [place], [address] , [facility] 6 12:08:54 Pain of multiple joints 62513299 Active 2013 Not Available [facility] 3 18:17:33 Active or passive immuniza tion Completed 201205/07/2014 RECORDED 05/23/20 13 11:50AM BY KEN Garcia MD, OFFICE VISIT Ken Griffiths MD [address] [facility] [address], [place], [address] , [facility] 6 12:08:55 Proteinu ever 46700418 Completed 201205/07/2014 IMPRESSI ON: MILD BUT PERSISTE NT ISSUE. WILL REASSESS AND IMAGE TO RULE OUT ANATOMIC ANOMALIE S.; RECORDED 05/22/20 13 11:44AM BY SUSHILA LEYVA MA, ANNOTATI ON/DAVION Griffiths MD [address], [place], [address] , [facility] 6 12:08:55 Influenz a vaccine needed 87762368604 06 Completed 201105/07/2014 RECORDED 10/18/20 12 3:36PM BY SUSHILA LEYVA MA, OFFICE VISIT Ken Griffiths MD [address], [place], [address] , [facility] 6 12:08:55 Dermatop hytosis of the body Completed 201205/07/2014 IMPRESSI ON: SLOWLY RESPONDI NG. 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 520347848 Active Not Available [facility] 3 18:17:33 Inflamma tion of sacroili ac joint 68082243 Completed 04/24/2020 Ken Griffiths MD [address], [place], [address] , [facility] 0 09:48:49 Peripher al arterial occlusiv e disease 589909040 Active 2016 right femoral iliac/po p, left fem/pop Not Available [facility] 3 18:17:34 Body mass index 40+ - severely obese 913581258 Completed 201809/13/2019 Removal Reason: dx changed Aretha de jesus [facility] 9 09:59:50 Morbid obesity 032201359 Active 2018 Not Available [facility] 3 18:17:33 Multiple nodules of lung 113130241 Active 2019 Not Available [facility] 3 18:17:34 Divertic ular disease 257068075 Active 2020 Not Available [facility] 3 18:17:34 Pain in left thumb 73534778788 80606 Active 2020 Not Available [facility] 3 18:17:33 Arthriti s of hand 780350926 Active 2021 Not Available [facility] 3 18:17:34 Internal hemorrho ids 23154965 Active 2021 Not Available [facility] 3 18:17:34 Calcific ation of coronary artery 284856982 Active 2021 Not Available [facility] 3 18:17:34 Pain of left shoulder joint 20382121618 300375 Active 2022 Not Available [facility] 3 18:17:33 Rupture of rotator cuff of left shoulder 40071761873 941011 Active 2022 Not Available [facility] 3 18:17:33 Arthriti s of acromioc lavicula r joint 351468488 Active 2022 Not Available [facility] 3 18:17:34 Prediabe yash 043001087 Active 2022 Not Available [facility] 3 18:17:34 Cervical arthriti s 135768142 Active 2022 Not Available [facility] 3 18:17:34 Polymyal rico rheumati ca 36217030 Active 2023 Ken Griffiths MD [address], [place], [address] , [facility] 4 10:30:50 Pain of right hip joint 87561385592 9102 Active 2023 Ken Griffiths MD [address], [place], [address] , [facility] 4 13:24:01 Osteoart hritis of right hip joint 21814929353 9107 Active 2023 Ken Griffiths MD [address], [place], [address] , [facility] 4 21:34:03 Body mass index 30+ - obesity 399870086 Active 2024 Ken Griffiths MD [address] [facility] [address], [place], [address] , [facility] 5 13:40:01 Lichen sclerosu s 985204795 Active 2024 Ken Griffiths MD [address] [facility] [address], [place], [address] , [facility] 5 07:54:22 Problem Notes None recorded. Procedures Surgical History Date Name Laterality Status Provider Name and Address Organization Details Recorded Time 07/27/20 24 Most Recent Mammogram completed Carol Calloway [facility] 07/27/2024 14:22:28 09/26/20 23 Chronic Pain Assessment completed Rupal Sorensen MA [facility] 09/26/2023 12:55:00 04/01/20 23 Mammogram Screening completed Gladys todd MA [facility] 08/15/2023 16:01:40 12/16/19 22 Date of Last Colonoscopy completed Ana Rivera [facility] 12/18/2021 15:25:52 12/16/19 22 colonoscopy completed Ken Griffiths MD [address], [place], [address], [place] [facility] 12/16/2021 10:42:52 11/17/19 19 Most Recent Bone Density completed Sushila Leyva [facility] 04/24/2020 09:08:33 11/17/19 19 Dxa bone density siobhan vrt fx completed Sushila Leyva [facility] 04/24/2020 09:08:52 05/08/20 18 Date of Last Pap Smear completed Ana Rivera [facility] 05/18/2018 08:57:39 01/16/20 14 completed Sushila Leyva MA [facility] 06/26/2014 13:13:55 06/22/20 10 completed Sushila Leyva MA [facility] 06/26/2014 13:13:55 Appendectomy completed Ken Griffiths MD [address], [place], [address], [facility] 06/26/2014 14:11:57 Imaging Results Imaging Date Name Status LastModified by Organiz ation Details LastModified Time 11/11/2023 CT chest ldct lung program completed [facility] ([facility] [address] [place], [address], 12/08/2023 15:08:32 04/27/2024 XR, hip, unilateral, 2 or 3 view completed [facility] ([facility] [address] [place], [address], 07/19/2024 12:13:15 07/27/2024 MAMMO, screening, digital, bilateral completed [facility] ([facility]) [address] [place], [address], 12/13/2024 13:46:42 07/27/2024 MAMMO, screening, bilateral completed [facility] [address], [place], [address], 12/13/2024 13:46:42 Procedure Notes None recorded. Medical Equipment None Reported. Allergies Allergen ID Allergen Name Allergen Category Reaction Reaction Severity Criticality Documentation Date Start Date Code Code System Note Provider Name and Address Organization Details Recorded Time 4742 Zestril medicatio n angioedem a moderate Not available 05/07/20142013 2 RxNorm Ken Griffiths MD [address] [facility] [address], [place], [address], [facility] 7 11:52:02 Medications Name Sig Start Date Stop Date Status Note LastModified by Organization Details LastModified Time losartan 50 mg tablet TAKE 1 TABLET DAILY 07/19 completed Not Available Not Available Not Available amoxicill in 500 mg capsule active Not Available Not Available Not Available prednison e 10 mg tablet Take 1 tablet every day by oral route for 30 days. 07/19 completed 01/09/24 currentl y taken Not Available Not Available Not Available doxycycli ne hyclate 100 mg capsule TWO TIMES DAILY 06/02 completed RECORDED 07/10/20 13 2:37PM BY KEN Garcia MD, MEDICATI ON AUTO-JULIET CTIVATIO N; Not Available Not Available Not Available atorvasta tin 20 mg tablet TAKE 1 TABLET DAILY active Not Available Not Available No t Available labetalol 200 mg tablet TAKE 1 TABLET TWICE A DAY 2023 active Not Available Not Available Not Avai lable ketoconaz ole 2 % shampoo APPLY TO AFFECTED AREA,LAT HER,LEAV E ON X5 MINUTES, RINSE WITH WATER.US E ONCE DAILY X3 DAYS active Not Available Not Available No t Available atorvasta tin 10 mg tablet Take 1 tablet every day by oral route. 09/04 completed Not Available Not Available Not Available meloxicam 15 mg tablet TAKE 1 TABLET BY MOUTH DAILY TAKE 1 TABLET DAILY WITH FOOD. active Not Available Not Available No t Available Synthroid 125 mcg tablet TAKE 1 TABLET DAILY active Not Available Not Available No t Available prednison e 5 mg tablet TAKE 1 TAB ORALLY DAILY COMBINE WITH THE ONE MG TABLETS FOR TAPER. 07/19 completed 07/19/24 CURRENTL Y TAMPERIN G DOWN Not Available Not Available Not Available clobetaso l 0.05 % topical cream Apply 1 applicat ion as needed by topical route for 30 days. 06/07 completed Not Available Not Available Not Available penicilli n V potassium 500 mg tablet THREE TIMES DAILY active Not Available Not Available No t Available topiramat e 25 mg tablet Take 1 tablet every day by oral route at bedtime for 30 days. 07/26 completed Not Available Not Available Not Available chlorthal idone 25 mg tablet TAKE ONE-HALF (1/2) TABLET DAILY active Not Available Not Available No t Available aspirin 81 mg tablet,de layed release Take 1 tablet every day by oral route as directed for 90 days. 2024 active PT now uses [facility] and needs new script sent Not Available Not Available Not Available famotidin e 20 mg tablet Take 1 tablet as needed by oral route for 15 days. 04/12 completed Not Available Not Available Not Available prednison e 1 mg tablet TAKE 2 TABS DAILY FOR 1 MONTH THEN 1 TAB DAILY FOR 1 MONTH THEN STOP 12/13 completed Not Available Not Available Not Available amlodipin e 10 mg tablet TAKE 1 TABLET DAILY (FOLLOWU P BEFORE MORE REFILLS) active Not Available Not Available No t Available cephalexi n 500 mg capsule TAKE 1 CAPSULE BY MOUTH 4 TIMES PER DAY FOR 7 DAYS active Not Available Not Available No t Available clotrimaz ole-betam ethasone 1 %-0.05 % topical cream APPLY TO THE AFFECTED AND SURROUND ING AREAS OF SKIN BY TOPICAL ROUTE 2 TIMES PER DAY IN THE MORNING AND EVENING FOR 2 WEEKS 04/12 completed PRN Not Available Not Available Not Available losartan 25 mg tablet TAKE 1 TABLET BY MOUTH EVERY DAY 03/23 completed Not Available Not Available Not Available ascorbic acid (vitamin C) 100 mg tablet DAILY 04/27 completed RECORDED 03/22/20 14 10:35AM BY SUSHILA LEYVA MA, OFFICE VISIT; Not Available Not Available Not Available betametha sone dipropion ate 0.05 % topical cream 06/26 completed Not Available Not Available Not Available oxybutyni n chloride ER 5 mg tablet,ex tended release 24 hr Take 1 tablet every day by oral route. 04/10 completed Not Available Not Available Not Available omeprazol e 20 mg capsule,d elayed release TAKE ONE CAPSULE BY MOUTH DAILY 03/23 completed Not Available Not Available Not Available ascorbic acid (vitamin C) 100 mg chewable tablet Take 1 tablet every day by oral route as directed for 30 days. 12/08 completed Not Available Not Available Not Available lorazepam 1 mg tablet 08/26 completed Not Available Not Available Not Available hydroxych loroquine 200 mg tablet TAKE 1 TABLET BY MOUTH TWICE A DAY FOR 90 DAYS active Not Available Not Available No t Available ibuprofen 600 mg tablet TAKE 1 TABLET 3 TIMES A DAY BY ORAL ROUTE NEEDED FOR 20 DAYS, FOR ARTHRITI S. active Not Available Not Available No t Available labetalol 100 mg tablet 06/26 completed Not Available Not Available Not Available ketoconaz ole 2 % topical cream Apply 1 applicat ion every day by topical route as directed for 28 days. 09/04 completed Not Available Not Available Not Available losartan 100 mg tablet TAKE 1 TABLET DAILY active Not Available Not Available No t Available fluticaso ne propionat e 50 mcg/actua tion nasal spray,els [place] 2 sprays every day by intranas al route as needed. 06/07 completed Not Available Not Available Not Available clotrimaz ole 1 % topical cream TWO TIMES DAILY 07/19 completed RECORDED 07/19/20 13 11:28AM BY KEN Garcia MD, OFFICE VISIT; Not Available Not Available Not Available loratadin e 10 mg tablet TAKE 1 TABLET BY MOUTH DAILY 09/04 completed Not Available Not Available Not Available nabumeton e 500 mg tablet TWO TIMES DAILY active Not Available Not Available No t Available bupropion HCl XL 150 mg 24 hr tablet, extended release TAKE 1 TABLET BY MOUTH DAILY FOR 3 DAYS THEN 1 TABLET TWICE A DAY. START 1 WEEK PRIOR TO QUIT DATE 12/13 completed 12/13/24 patient has not started and would like to discus with AW Not Available Not Available Not Available labetalol TWO TIMES DAILY 06/26 completed RECORDED 02/14/20 14 3:58PM BY KEN Garcia MD, OFFICE VISIT; Not Available Not Available Not Available Calcium 500 + D take 1 tab daily po 02/15 /2024 completed Not Available Not Available Not Available GaviLyte- G 236 gram-22.7 4 gram-6.74 gram-5.86 gram oral solution 10/12 completed Not Available Not Available Not Available Vitals Date Recorded Body height Body mass index (BMI) Body weight Heart rate Oxygen saturation Oxygen saturation in Arterial blood by Pulse oximetry Body temperature Systolic blood pressure Diastolic blood pressure Provider Name and Address Organization Details Last Updated DateTime 4 165.1 cm 35.9 kg/m2 35874.1 6 g 86 /min 96 % 96 % 97.5 [degF] 116 mm[Hg] 68 mm[Hg] Rupal [facility] 4 14:14:05 Date Recorded Body height Body mass index (BMI) Body weight Heart rate Oxygen saturation Oxygen saturation in Arterial blood by Pulse oximetry Body temperature Systolic blood pressure Diastolic blood pressure Provider Name and Address Organization Details Last Updated DateTime 4 165.1 cm 36.4 kg/m2 50023.7 3 g 77 /min 99 % 99 % 97.3 [degF] 140 mm[Hg] 70 mm[Hg] [facility] 4 11:51:56 Date Recorded Body height Body mass index (BMI) Body weight Heart rate Oxygen saturation Oxygen saturation in Arterial blood by Pulse oximetry Body temperature Systolic blood pressure Diastolic blood pressure Provider Name and Address Organization Details Last Updated DateTime 4 165.1 cm 36.9 kg/m2 303970. 51 g 79 /min 97 % 97 % 97.3 [degF] 155 mm[Hg] 75 mm[Hg] Virginia aggarwal [facility] [place] 4 12:56:36 Date Recorded Body height Body mass index (BMI) Body weight Heart rate Oxygen saturation Oxygen saturation in Arterial blood by Pulse oximetry Body temperature Systolic blood pressure Diastolic blood pressure Provider Name and Address Organization Details Last Updated DateTime 4 165.1 cm 37.9 kg/m2 696059. 27 g 76 /min 97 % 97 % 97.2 [degF] 141 mm[Hg] 74 mm[Hg] [facility] [place] 4 12:03:37 Date Recorded Body height Body mass index (BMI) Body weight Heart rate Oxygen saturation Oxygen saturation in Arterial blood by Pulse oximetry Body temperature Systolic blood pressure Diastolic blood pressure Provider Name and Address Organization Details Last Updated DateTime 5 165.1 cm 36.4 kg/m2 04324.7 3 g 81 /min 98 % 98 % 97.2 [degF] 135 mm[Hg] 75 mm[Hg] Rupal Sorensen MA [facility] 5 13:03:59 Social History Question Answer Notes LastModified by Organizat ion Details LastModified Time Tobacco Smoking Status Current Every Day Smoker Not Available [facility] 08/26/2020 03:36:44 Do You Have An Advance Directive? Yes HCP/ Dtr-Mami Reza Information not available 06/21/2022 What Is Your Level Of Alcohol Consumption? None Information not available 12/13/2024 Is Blood Transfusion Acceptable In An Emergency? Yes [id number] Information not available 08/26/2020 What Is Your Level Of Caffeine Consumption? Moderate Information not available 10/12/2021 How Much Tobacco Do You Chew? None [id number] Information not available 08/26/2020 Are You Currently Employed? No Information not available 10/12/2021 What Type Of Diet Are You Following? REGULAR [id number] Information not available 08/26/2020 Which Illicit Or Recreational Drugs Have You Used? Marijuana Occ. Information not available 12/13/2024 Do You Or Have You Ever Used E-cigarettes Or Vape? Never Used Electronic Cigarettes Information not available 06/21/2022 Education 2 Year College Information not available 06/21/2022 What Is Your Occupation? Retired Information not available 10/12/2021 Live Alone Or With Others? Alone Lives In Duplex Daughter Lives On Other Side Information not available 12/13/2024 Do You Take Precautions To Prevent Distracted Driving? Yes Information not available 08/26/2016 How Often Do You Need To Have Someone Help You When You Read Instructions, Pamphlets, Or Other Written Material From Your Doctor Or Pharmacy? Never Information not available 08/26/2016 Have You Served In The ? No Information not available 08/26/2016 Have You Or Anyone In Your Household Had Any Of The Following Symptoms In The Last 14 Days: Sore Throat, Cough, Chills, Body Aches For Unknown Reasons, Shortness Of Breath For Unknown Reasons, Loss Of Smell, Loss Of Taste, Fever At Or Greater Than 100 Degrees Fahrenheit? No Information not available 04/24/2020 Are You Or Anyone In Your Household A Health Care Provider Or Emergency Responder? No Information not available 04/24/2020 To The Best Of Your Knowledge Have You Been In Close Proximity To Any Individual Who Tested Positive For COVID-19? No Information not available 04/24/2020 *AWV ONLY* Are You Presently Prescribed Opioid Medication By PCP Or Specialist? If YES -Provider Assess The Benefit For Other, Non-opioid Pain Therapies Instead, Even If The Patient Does Not Have OUD But Is Possibly At Risk. No Information not available 10/12/2021 Have You Recently Traveled To A COVID-19 High Risk Area Or Gathering In The Last 10 Days? No [email or web address] Information not available 06/08/2021 What Was The Date Of Your Most Recent Tobacco Screening? 12/13/2024 Information not available 12/13/2024 How Many Children Do You Have? 2 1 Son, 1 Dtr [id number] Information not available 08/26/2020 What Is Your Current Pack Years? 30ormorepacky ears Information not available 11/02/2022 Do You Use Protection During Sex? Always [id number] Information not available 08/26/2020 Do You Use Your Seat Belt Or Car Seat Routinely? No Information not available 10/12/2021 Seat Belts Used Routinely Yes Information not available 06/21/2022 Are You Sexually Active? No [id number] Information not available 08/26/2020 Smoke Alarm In Home Yes Information not available 06/21/2022 Do You Have Smoke And Carbon Monoxide Detectors In Your Home? Yes Information not available 10/12/2021 At What Age Did You Start Smoking Tobacco? 22 [id number] Information not available 08/26/2020 Are You Passively Exposed To Smoke? No Information not available 10/12/2021 Do You Or Have You Ever Used Smokeless Tobacco? Never Used Smokeless Tobacco [id number] Information not available 08/26/2020 How Much Tobacco Do You Smoke? 0.25 PPD Information not available 12/13/2024 Do You Use Any Illicit Or Recreational Drugs? Yes Information not available 12/13/2024 Do You Use Sunscreen Routinely? No Information not available 10/12/2021 How Many Years Have You Smoked Tobacco? 47 Information not available 12/13/2024 Do You Or Have You Ever Used Any Other Forms Of Tobacco Or Nicotine? No Information not available 06/21/2022 Sex: Unknown Functional Status Question Answer Note LastModified by Organization D etails LastModified Time Are you able to walk? YESWOREST Information not available 06/21/2022 Are you able to care for yourself? Yes Information not available 10/12/2021 What is your exercise level? None [id number] Information not available 08/26/2020 Mental Status None recorded. Family History Relationship Description Onset Age of this Age Resolved Age Notes LastModified by Organization Details LastModified Time Mother Hypertensive disorder abolcun Not available 2015 09:48:38 Mother Dementia 84 [email or web address] Not availab le 10/12/2021 14:47:31 Mother Arthritis abolcun Not available 10/12/2021 14:15:10 Brother Human immunodefici ency virus infection Not available 2021 12:35:59 Daughter Well adult Not availab le 06/21/2022 12:35:59 Son Well adult Not available 06/21/2022 12:35:59 Father Coronary arterioscler osis Not available 2021 12:35:59 Medical History Condition Response Gout N Other N Kidney Stones N Blood Diseases N Hyperthyroidism N Breast Cancer N Hypothyroidism Y Lung Disease N Depression N COPD N Defects or Inherited Disease N Anesthesia Complications N Headaches/Migraines N Anxiety Disorder N Varicose Veins N Obesity Y Vision or Eye Problems N Arthritis N Head Injury/Concussion N Infertility N Polyps N Congenital Anomalies N Acid Reflux (GERD) N Cancer N Stroke N ADHD N Endometriosis N High Cholesterol Y Liver Disease N Fibromyalgia N Kidney Disease N Heart Problems N Ear or Hearing Problems N Hospitalizations N Thyroid Problems N GI Problems N Acne N Eating Disorder N Skin Problems N Anemia N Constipation N Bladder Problems N Mental Illness N Diabetes N Ovarian Cancer N Blood Transfusions N Seizures/Epilepsy N Tuberculosis N AIDS/HIV N Congestive Heart Failure (CHF) N Eczema N Abuse/Domestic Violence N Diverticulitis N Asthma N Allergies N Reflux/GERD N Hepatitis N Pulmonary Embolism N Hypertension Y Chicken Pox N Autism Spectrum Disorder (ASD) N Osteoporosis N Gynecological History Statement/Question Response Date of Last Pap Smear 05/08/2018 Most Recent Mammogram 07/27/2024 01/15/2014 Date of Last Colonoscopy 12/16/2021 Most Recent Bone Density 11/17/2018 06/22/2010 Obstetrics History GPAL:G 0 P 0 0 0 0 Immunizations Vaccine Type Date Status Note Provider Name and Address Organization Details Recorded Time zoster recombinant 019 completed Sushila Leyva MA [facility] 04/24/2020 09:07:31 COVID-19, mRNA, LNP-S, PF, 30 mcg/0.3 mL dose 021 completed Not Available [facility] 10/10/2023 18:17:34 COVID-19, mRNA, LNP-S, PF, 30 mcg/0.3 mL dose 021 completed Not Available [facility] 10/10/2023 18:17:34 Tdap 018 completed Not Available [facility] 10/10/2023 18:17:34 Influenza, split virus, quadrivalent, PF 018 cancelled patient objection Not Available [facility] 11/10/2019 02:22:16 Tdap 008 completed Not Available [facility] 10/10/2023 18:17:34 pneumococcal polysaccharide PPV23 013 completed Not Available [facility] 10/10/2023 18:17:34 zoster recombinant 019 cancelled patient objection Not Available [facility] 11/10/2019 02:22:20 Past Encounters Encounter ID Performer Location Encounter Start Date Encounter Closed Date Diagnosis/Indication Diagnosis SNOMED-CT Code Diagnosis ICD10 Code Diagnosis Note [id number] [facility] [address] [facility] [place] [address] 09/11/2012 00:00:00 [id number] auto[facility]Comm erce [address] [facility] [address] [place] [address] 10/18/2012 00:00:00 [id number] auto[facility] erce [address] [facility] [place] [address] 10/23/2012 00:00:00 [id number] auto[facility] erce [address] [facility] [place] [address] 12/06/2012 00:00:00 [id number] auto[facility] erce [address] [facility] [place] [address] 04/05/2013 00:00:00 [id number] [facility] er[facility] [address] [facility] [place] [address] 04/27/2013 00:00:00 [id number] auto[facility] erce [address] [facility] [place] [address] 05/23/2013 00:00:00 [id number] auto[facility] erce [address] [facility] [place] [address] 07/19/2013 00:00:00 [id number] auto[facility]Comm erce [address] [facility] [place] [address] 09/03/2013 00:00:00 [id number] auto[facility]Comm erce [address] [facility] [place] [address] 02/13/2014 00:00:00 [id number] [facility] er[facility] [address] [facility] [place] [address] 03/22/2014 00:00:00 [id number] Rosa Lees [place] Main Office [address] [place] [address] 06/26/2014 12:50:25 06/26/2014 14:18:10 Adult health examination 013387893 Immunizati on status utd, will screen based on risk factors. Flu advised in the Fall. Regular dental and ophtho care advised as well as sunscrene abd seatbelt use. Distracted driving discussed. Cervical, breast and colon cancer screening are utd. Advance directives discussed and in place. Essential hypertension 46494098 Well controlled and regimen tolerated. Will continue current dosing. Hypothyroidism 18135237 Clinically euthyroid. Will recheck labs before next appt. Obesity 614533261 Long t erm potential health consequenc es discussed. Healthy diet and exercise habits advised. Pt has already received a referral to wt management and is planning on following through. Tobacco de pendence syndrome 72514605 Pt remains precontemp lative despite explainati on and understand ing of potential intermediate health consequenc es. Pure hypercholesterolemia 142182590 Will follow closely babita in the context of other significan t CV risk factors. [id number] Ken Griffiths MD Main Office [address] [facility] [place] [place] [address] [facility] [place] [address] 04/09/2016 09:09:10 04/09/2016 10:29:20 Essential hypertension 17669250 I10 Well controlled and regimen tolerated. Will continue current dosing. Hypothyroidism 53117392 E03.9 Overdue for labs. Tobacco de pendence syndrome 35674278 F17.290 Reviewed motivation s for smoking cessation. Advised about benefits of stopping smoking. Pt currently precontemp lative. Pure hypercholesterolemia 082686444 E78.0 Will reassess. Pain in le ft lower limb 929836931 M79.605 Chronic issue previously felt to have components of hip bursitis and lumbar spine disease. Will reinvigora te PMR referral and if CK still elevated will ask rheum for opinion as well. [id number] Ken Griffiths MD Main Office [address] [facility] [place] [place] [address] [facility] [place] [address] 05/20/2016 12:38:32 05/20/2016 13:16:39 Essential hypertension 13520938 I10 Hypothyroidism 85742666 E03.9 Will reassess with more appropriat e supplement ation/comp liance. Tobacco de pendence syndrome 16056243 F17.290 Reviewed motivation s for smoking cessation. Advised about benefits of stopping smoking. Pt currently precontemp lative. Impaired f asting glycemia 698876934 R73.01 Myositis 20115535 M60.9 Reasess in 6 months and consider neuro eval depending on if persistent and what her symptoms do. [id number] Ken Griffiths MD Main Office [address] [address] [place] [address] 08/26/2016 13:37:37 08/26/2016 14:41:39 Adult health examination 019750153 Z00.01 Immunizati on status utd, will screen based on risk factors. Flu declined. Regular dental and ophtho care advised as well as sunscreen and seat belt use. Distracted driving discussed. Cervical, breast and colon cancer screening are utd. Advance directives discussed and in place. Body mass index 40+ - severely obese 004729344 Z68.41 Hypothyroidism 33446599 E03.9 Clinically and biochemica lly euthyroid. Continue current dose. Essential hypertension 43061898 I10 Will add diuretic to try and get control to goal. Screening for malignant neoplasm of lung 306826252 Z12.2 Screening for malignant neoplasm of colon 943373896 Z12.11 Tobacco de pendence syndrome 61145922 F17.290 Reviewed motivation s for smoking cessation. Advised about benefits of stopping smoking. Pt currently precontemp lative. [id number] Ken Griffiths MD Main Office [address] [place] [address] 03/14/2017 14:40:26 03/14/2017 15:39:54 Essential hypertension 71864093 I10 Not at goal today. Reassess at f/u and if >140/90, add another med. Will arrange fasting lab at f/u. Chronic cough 23009775 R 05 Suspect that either allergies or GERD might be a player. Will address both and if better d/c one of the two treatments to see what was effective. Image given duration and tobacco use history. Lung cancer screening referral was provided last Fall. [id number] Ken Griffiths MD Main Office [address] [address] [place] [address] 04/27/2017 11:09:59 04/27/2017 12:06:12 Essential hypertension 00050676 I10 Poor control. Will add ARB. Cough 18077434 R05 ? secondary to GERD vs allergies. Will d/c PPI and see if recurs. Obstructiv e sleep apnea syndrome 84987186 G47.33 Referral to sleep med offered but declined by pt. Understand s potential health consequenc es to untreated ILDA. [id number] Main Office [address] [facility] [place] [place] [address] [place] [address] 05/27/2017 12:37:40 05/27/2017 13:18:20 Pure hypercholesterolemia 492219310 E78.00 Will follow closely babita in the context of other significan t CV risk factors. If PAD present will need statin. Essential hypertension 27077444 I10 Well controlled with addition of ARB. Will continue current regimen. Pain in le ft lower limb 178030035 M79.605 ?PAD. Refer for PVR and if abnormal consult vascular. Otherwise if normal will ask pt to f/u with PMR for possible neurogenic claudicati on. Myositis 36988439 M60.9 If persistent will refer to neuro as advised by rheum. [id number] Ken Griffiths MD Main Office [address] [address] [place] [address] 09/02/2017 14:10:20 09/02/2017 15:21:58 Adult health examination 449795797 Z00.00 Immunizati on status utd, flu declined. Will screen based on risk factors. Regular dental and ophtho care advised as well as sunscreen and seat belt use. Distracted driving discussed. Breast and colon cancer screening are utd. Due for cervical cancer screening. Advance directives discussed and in place. Body mass index 40+ - severely obese 665234916 Z68.41 Impaired f asting glycemia 544821825 R73.01 Increased physical activity and wt loss advised. Will follow. Tobacco de pendence syndrome 51922478 F17.200 Pt remains precontemp lative despite explanatio n and understand ing of potential intermediate health consequenc es. Essential hypertension 64102805 I10 Well controlled with addition of ARB. Will continue current regimen. Pure hypercholesterolemia 368642445 E78.00 Well controlled and statin well tolerated. Continue current dose. Hypothyroidism 64438500 E03.9 Clinically and biochemica lly euthyroid. Continue current dose. Screening for malignant neoplasm of cervix 727909746 Z12.4 Dermatophy tosis of the body 199000269 B35.4 Call inb/worse. [id number] Ken Griffiths MD Main Office [address] [address] [place] [address] 12/22/2017 12:44:33 12/22/2017 13:21:29 Essential hypertension 90078402 I10 Well controlled with addition of ARB. Will continue current regimen. Pure hypercholesterolemia 290672482 E78.00 LDL not at goal. Will start statin and titrate to goal LDL <100. Cough 07174691 R05 ? secondary to GERD, call inb/worse after resuming PPI. Peripheral arterial occlusive disease 243452844 I73.9 Will work on risk factor control for now. Benefits of smoking cessation discussed. Needs to f/u wi vascular in 12-18 months. [id number] Ken Griffiths MD Main Office [address] [address] [place] [address] 03/23/2018 12:42:08 03/23/2018 13:21:25 Essential hypertension 67741808 I10 Well controlled with addition of ARB. Will continue current regimen. Pure hypercholesterolemia 611304286 E78.00 LDL not at goal. Will titrate statin to goal LDL <100. Seasonal a llergic rhinitis 528630003 J30.2 Suspect her symptoms are allergy related. Will start OTC meds and call inb/worse or if second sickening occurs. Impaired f asting glycemia 139495826 R73.01 Increased physical activity and wt loss advised. Will follow. [id number] Sushila Leyva MA Main Office [address] [address] [place] [address] 09/04/2018 09:25:37 09/04/2018 10:44:36 Adult health examination 978389943 Z00.00 Immunizati on status utd, flu declined. Will screen based on risk factors. Regular dental and ophtho care advised as well as sunscreen and seat belt use. Distracted driving discussed. Breast, cervical and colon cancer screening are utd. Advance directives discussed and in place. Administra tion of viral vaccine 44220316 Z23 Varicella vaccination 68 761961 Z23 Needs infl uenza immunization 444877445 Z23 Tobacco de pendence syndrome 00224674 F17.290 Pt remains precontemp lative despite explanatio n and understand ing of potential intermediate health consequenc es. Screening for malignant neoplasm of breast 597273868 Z12.39 Menopause present 682855 006 Z78.0 WIll screen base don risk factors. Body mass index 40+ - severely obese 784016895 Z68.41 Impaired f asting glycemia 476447398 R73.01 Increased physical activity and wt loss advised. Will follow. Essential hypertension 83622566 I10 Well controlled , will continue current regimen. Pure hypercholesterolemia 219134064 E78.00 On low dose statin. Will titrate if LDL still >100. Hypothyroidism 43072663 E03.9 Clinically and biochemica lly euthyroid. Continue current dose. Myositis 82016530 M60.9 If persistent will refer to neuro as advised by rheum. Obstructiv e sleep apnea syndrome 38748918 G47.33 Referral to sleep med offered but declined by pt. Understand s potential health consequenc es to untreated ILDA. Peripheral arterial occlusive disease 532500577 I73.9 Will work on risk factor control for now. Benefits of smoking cessation discussed. Needs to f/u with vascular in 6 months. Lesion of skin of face 8556425863 06 L98.9 [id number] Ken Griffiths MD Main Office [address] [facility] [address] [facility] [place] [address] 03/05/2019 09:29:33 03/05/2019 10:28:54 Peripheral arterial occlusive disease 462308608 I73.9 Will work on risk factor control for now. Benefits of smoking cessation discussed. Needs to f/u with vascular in 6 months. Essential hypertension 77795534 I10 Not at goal today. Will titrate ARB dose and follow. Pure hypercholesterolemia 361453993 E78.00 On moderate dose statin, with goal LDL control. Continue current dose. 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 Will check u/s to rule out retention. Refer to urology if u/s abnl or symptoms persist/wo rsen. [id number] Ken Griffiths MD Main Office [address] [facility] [place] [address] [facility] [place] [address] 04/10/2019 09:11:12 04/10/2019 09:51:38 Retention of urine 356475057 R33.9 Pt are chronic and tolerable. Will defer further evaluation to urology. Advised to call if symptoms change/wor sen in the meantime. Essential hypertension 20970601 I10 Well controlled on current ARB dose. Will continue. [id number] Ken Griffiths MD Main Office [address] [facility] [place] [address] [place] [address] 09/07/2019 15:10:23 09/07/2019 16:34:54 Adult health examination 796996994 Z00.00 Immunizati on status utd, flu declined. Will screen based on risk factors. Shingrix advised via local pharmacy. Regular dental and ophtho care advised as well as sunscreen and seat belt use. Distracted driving discussed. Breast, cervical and colon cancer screening are utd. Advance directives discussed and in place. Peripheral arterial occlusive disease 340700072 I73.9 Will work on risk factor control for now. Benefits of smoking cessation discussed. Needs to f/u with vascular in 6 months. Varicella vaccination 68 495967 Z23 Essential hypertension 92554861 I10 Well controlled on current regimen. Will continue. Pure hypercholesterolemia 797508766 E78.00 On moderate dose statin, with goal LDL control. Continue current dose. Screening for malignant neoplasm of breast 606179832 Z12.39 Body mass index 40+ - severely obese 719143808 Z68.41 Impaired f asting glycemia 539931481 R73.01 Increased physical activity and wt loss advised. Will follow. Myositis 31259442 M60.9 If persistent will refer to neuro as advised by rheum. Obstructiv e sleep apnea syndrome 33996438 G47.33 Referral to sleep med offered but declined by pt. Understand s potential health consequenc es to untreated ILDA. Tobacco de pendence syndrome 88137049 F17.290 Pt remains precontemp lative despite explanatio n and understand ing of potential intermediate health consequenc es. Screening for malignant neoplasm of colon 979261764 Z12.11 Due in January, advised to call for appt if outreach is not done by the office. Hypothyroidism 63171871 E03.9 Clinically and biochemica lly euthyroid. Continue current dose. Morbid obesity 124514477 E66.01 [id number] Ken Griffiths MD Main Office [address] [place] [address] 04/24/2020 08:47:50 04/24/2020 09:57:16 Impaired fasting glycemia 173410751 R73.01 Increased physical activity and wt loss advised. Will follow. Essential hypertension 05798032 I10 Well controlled on current regimen. Will continue. Pure hypercholesterolemia 093595112 E78.01 On moderate dose statin, with goal LDL control. Continue current dose. Nicotine dependence 5629 4008 Z87.891 LDCT Lung Cancer Screening Program Annual Order Pyuria 3259343 R82.81 Will check clean catch, suspect that her intertrigo might have contribute d to the contaminat ed sample. Candidal intertrigo 2661 69682 B37.2 [id number] Doris Soni Main Office [address] [address] [place] [address] 06/08/2021 10:38:09 06/08/2021 11:50:00 Impaired fasting glycemia 746750531 R73.01 Advise to increase physical activity and continued wt loss advised. Will follow, hgba1c stable at 5.8,pt has lost some wt, eating better Essential hypertension 56575219 I10 Well controlled on current regimen. Will continue. Pure hypercholesterolemia 318406879 E78.01 On moderate dose statin, due for labs Nicotine dependence 5629 4008 Z87.891 LDCT Lung Cancer Screening Program Annual Order Morbid obesity 922618228 E66.01 pt is losing wt, continue with better eating and keeping active. Screening for malignant neoplasm of colon 338691313 Z12.11 due for colon screening Screening for malignant neoplasm of cervix 731764043 Z12.4 Screening for malignant neoplasm of breast 402802824 Z12.39 Tendinitis of left shoulder 8778071017 145934 M75.92 declines PT for now, will do ROM, if tingling into hand persists will to NCS [id number] Ken Griffiths MD Main Office [address] [address] [place] [address] 10/12/2021 14:11:24 10/12/2021 15:11:45 Adult health examination 891793637 Z00.00 Immunizati on status utd, flu declined. Will screen based on risk factors. Shingrix advised via local pharmacy. Regular dental and ophtho care advised as well as sunscreen and seat belt use. Distracted driving discussed. Breast, cervical and colon cancer screening are utd. Advance directives discussed and in place. Varicella vaccination 68 410815 Z23 Hypothyroidism 61242086 E03.9 Clinically and biochemica lly euthyroid. Continue current dose. Essential hypertension 78305326 I10 Well controlled on current regimen. Will continue. Pure hypercholesterolemia 660062337 E78.01 On moderate dose statin, with goal LDL control. Continue current dose. 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 Screening for malignant neoplasm of breast 172753655 Z12.39 Screening for malignant neoplasm of colon 489771846 Z12.11 Scheduled 12/[address] Collazo Peripheral arterial occlusive disease 427726170 I73.9 Will work on risk factor control for now. Benefits of smoking cessation discussed. Impaired f asting glycemia 779159689 R73.01 Has lost weight and doing fairly well with diet/lifes tyle changes. Will monitor. Albuminuria 260899343 R8 0.9 Multiple n odules of lung 045211268 R91.8 Lung cancer screening utd, due in Jun 2022. Pain in left thumb 29059 03580 206640 M79.645 ? arthritis vs tendintiti s. Will image and ask ortho to help with mgmt regardless . Myositis 71545619 M60.9 If persistent will refer to neuro as advised by rheum. [id number] Ken Griffiths MD Main Office [address] [facility] [address] [facility] [place] [address] 02/16/2022 12:45:30 02/16/2022 13:25:15 Essential hypertension 46956912 I10 Well controlled on current regimen. Will continue. Hypothyroidism 98483795 E03.9 Clinically and biochemica lly euthyroid. Continue current dose. Pure hypercholesterolemia 388758987 E78.01 On moderate dose statin, with goal LDL control. Continue current dose. Osteoarthr itis of joint of bilateral hands 4989573373 92208 M19.041 Not interested in injections . Discussed CBD, glucosamin e/chondroi tin and turmeric and more holisitic options to try. Will call if interested in trying different NSAID options. [id number] Ken Griffiths MD Main Office [address] [facility] [place] [address] [place] [address] 06/21/2022 12:35:37 06/21/2022 13:30:58 Essential hypertension 69647089 I10 Well controlled on current regimen. Will continue. Pure hypercholesterolemia 708509672 E78.01 On moderate dose statin, with goal LDL control. Continue current dose. Impaired f asting glycemia 057650797 R73.01 Has lost weight and doing fairly well with diet/lifes tyle changes. Will monitor. Tobacco de pendence syndrome 39871875 F17.290 Pt is now contemplat jayant willing to try buproprion . Advised to call with any problems after starting. Will titrate dose as tolerated. Nicotine dependence 5629 4008 Z87.891 LDCT Lung Cancer Screening Program Annual Order Peripheral arterial occlusive disease 940389203 I73.9 Will work on risk factor control for now. Benefits of smoking cessation discussed. , and pt is willing to try. Will monitor symptoms with this effort and refer back to vascular if symptoms are persistent /worse. [id number] Ken Griffiths MD Main Office [address] [facility] [place] [address] [place] [address] 11/02/2022 13:39:29 11/02/2022 14:54:35 Adult health examination 241599782 Z00.00 Immunizati on status utd, flu declined. Will screen based on risk factors. Shingrix and bivalent COVID 19 booster advised via local pharmacy. Regular dental and ophtho care advised as well as sunscreen and seat belt use. Distracted driving discussed. Breast, cervical and colon cancer screening are utd. Advance directives discussed and in place. Screening for malignant neoplasm of breast 861458006 Z12.39 Shoulder pain limiting her ability to go for mammo. 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 Pain of le ft shoulder joint 5345607009 0694874 M25.512 Suspect frozen shoulder. Will ask ortho to help with eval. Pt declines PT until ortho assesses her. Essential hypertension 93068744 I10 Well controlled on current regimen. Will continue. Hypothyroidism 74814659 E03.9 Clinically and biochemica lly euthyroid. Continue current dose. Body mass index 30+ - obesity 029227383 E66.01 Z68.36 Peripheral arterial occlusive disease 842071675 I73.9 Will work on risk factor control for now. Benefits of smoking cessation discussed. , and pt is willing to try. Will monitor symptoms with this effort and refer back to vascular if symptoms are persistent /worse. Varicella vaccination 68 433519 Z23 Tobacco de pendence syndrome 46304645 F17.290 Pt is now contemplat jayant willing to try buproprion . Advised to call with any problems after starting. Will titrate dose as tolerated. Pure hypercholesterolemia 288732626 E78.01 On moderate dose statin, with goal LDL control. Continue current dose. Obstructiv e sleep apnea syndrome 09277218 G47.33 Referral to sleep med offered but declined by pt. Understand s potential health consequenc es to untreated ILDA. Candidal intertrigo 2661 46001 B37.2 Impaired f asting glycemia 888251990 R73.01 Has lost weight and doing fairly well with diet/lifes tyle changes. Will monitor. [id number] Ken Griffiths MD Main Office [address] [place] [address] 05/10/2023 13:18:34 05/10/2023 14:18:43 Essential hypertension 41347085 I10 Well controlled on current regimen. Will continue. Hypothyroidism 95817380 E03.9 Clinically euthyroid, has labs pending. Will adjust dosing as result indicates. Peripheral arterial occlusive disease 470668916 I73.9 Contiunes to struggle with risk factor control for now. Benefits of smoking cessation discussed. , and pt is willing to try. Will refer back to vascular if symptoms are persistent /worse. [id number] Greg Greene MD Main Office [address] [place] [address] 08/15/2023 15:38:20 08/15/2023 16:55:20 Carpal tunnel syndrome 77432377 G56.03 Paresthesi a of bilateral hands 558938566 R20.2 [id number] Ken Griffiths MD Main Office [address] [place] [address] 09/12/2023 13:24:31 09/12/2023 14:27:50 Pain of multiple joints 03619424 M25.50 Need to determine whether her symptoms are all related to osteoarthr itis and not reactive/i nflammator y arthropath y. If labs abnl would consider a new rheum eval. Muscle pain 82627172 M79 .10 stop atorvastat in in case this is an issue. [id number] Aretha Best Main Office [address] [address] [place] [address] 09/26/2023 12:42:46 09/26/2023 13:13:54 Cervical arthritis 454963901 M46.92 Arthritis of acromioclavicular joint 024926229 M13.812 Pain of le ft shoulder joint 0587641876 0505623 M25.512 Has rotator cuf disease and OA. Very reluctant to have surgery at this time. Will refer back to Dr. Gonzalez should her symptoms warrant and stance on surgery change. 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 Will ask rheum for input. Suspect a possible combinatio n of OA and inflammato ry arthritis. Will ask rheum for guidance and to help make sure additional testing is not warranted. [id number] Ken Griffiths MD Main Office [address] [address] [place] [address] 12/08/2023 13:57:54 12/08/2023 15:26:22 Adult health examination 542310199 Z00.00 Flu vaccine declined. PCV20, RSV, Shngrix and COVID booster advised via local pharmacy. Will screen based on risk factors. Regular dental and ophtho care advised as well as sunscreen and seat belt use. Distracted driving discussed. Breast, cervical and colon cancer screening are utd. Advance directives discussed and in place. 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 Screening for malignant neoplasm of breast 312866964 Z12.39 Due for f/u in March. Pain of mu ltiple joints 02739599 M25.50 Only responsive to steroids, needs rheum eval. Will see if specialist s at [facility] can accomodate sooner than [facility]. Synovitis 380482268 M65. 9 Will provide low dose steroid to help improve function while waiting for rheumatolo gy consultati on. Administra tion of pneumococcal vaccine 28696400 Z23 Varicella vaccination 68 777806 Z23 Essential hypertension 11693145 I10 Well controlled on current regimen. Will continue. Hypothyroidism 10762524 E03.9 Clinically and biochemica lly euthyroid. Continue current dose. Body mass index 30+ - obesity 906942194 E66.01 Z68.35 Peripheral arterial occlusive disease 684100067 I73.9 Based on abnl PVR in 2017, but recent vascular eval (08/2023) was basically normal. Follow up left PRN. I will continue to try and work on risk factor control for now. Benefits of smoking cessation discussed. Tobacco de pendence syndrome 78223466 F17.290 Pt is precontemp lative again. Understand s/accepts potential consequenc es and to call if treatment is desired. LDCT/lung cancer screening is current. Pure hypercholesterolemia 236201091 E78.01 On moderate dose statin, with goal LDL control. Continue current dose. Obstructiv e sleep apnea syndrome 81513817 G47.33 Referral to sleep med offered but declined by pt. Understand s potential health consequenc es to untreated ILDA. Impaired f asting glycemia 613056069 R73.01 Has lost weight and doing fairly well with diet/lifes tyle changes. Will monitor. Administra tion of viral vaccine 15324975 Z29.11 Inflammato ry polyarthropathy 895951204 M06.4 Pt unable to get into arthritis tx center until February. Will try [place] rheumatolo gy [id number] Ken Griffiths MD Main Office [address] [facility] [place] [place] [address] 01/09/2024 11:25:34 01/09/2024 12:21:01 Prediabetes 385707853 R73.03 Will monitor babita with steroid therpay she has been receiving. Inflammato ry polyarthropathy 658670160 M06.4 Pt unable to get into arthritis tx center until April. Has rheum appt on 01/26 in [place]. Excellent relief with steroid. Need help with diagnosis and guidance regarding intermediate therapy. Tobacco de pendence syndrome 34478493 F17.290 Pt is precontemp lative again. Understand s/accepts potential consequenc es and to call if treatment is desired. LDCT/lung cancer screening is current. Pure hypercholesterolemia 322158376 E78.01 Will resume statin based on CVD [id number] Ken Griffiths MD Main Office [address] [facility] [place] [address] [facility] [place] [address] 04/12/2024 12:45:33 04/12/2024 13:31:57 Essential hypertension 44703187 I10 Not well controlled , will titrate ARB dose in context of steroid therapy and weight gain. Polymyalgi a rheumatica 28328067 M35.3 Formally diagnosed by rheum, tapering off of prednisone Pain of ri ght hip joint 8710378424 69145 M25.551 ? hip pathology vs SIJ. If xray neg will try home pt and call for formal PT if desired. Skin hypopigmented 22443 000 L81.5 ?tinea vs vitiligo, hiren if ketoconazo le helps. Prediabetes 290348121 R7 3.03 Will monitor babita with steroid therapy she has been receiving. Tobacco de pendence syndrome 74093111 F17.290 Pt is more contemplat jayant. Understand s/accepts potential consequenc es and to call if treatment is desired. Would liek to revisit buproprion . [id number] Ken Griffiths MD Main Office [address] [facility] [place] [address] [facility] [place] [address] 07/19/2024 11:24:36 07/19/2024 12:34:19 Essential hypertension 21616488 I10 Fair control, will titrate diuretic dose if >140/90 at f/u. Hypercholesterolemia 136 03063 E78.00 Will resume statin as previous myalgias were more likely from her PMR diagnosis. Influenza vaccination declined 528959097 Z28.21 Tobacco de pendence syndrome 76122293 F17.290 Pt is more contemplat jayant. Never started previous buproprion rx but is planning to now. Pure hypercholesterolemia 276192874 E78.01 Will reassess control back on statin. Prediabetes 157048305 R7 3.03 Will monitor babita with steroid therapy she has been receiving. Osteoarthr itis of right hip joint 0989689330 55081 M16.11 Would like to try PT, advised to let me know fi she changes her mind re: ortho consultati on. [id number] Ken Griffiths MD Main Office [address] [facility] [address] [facility] [place] [address] 12/13/2024 12:48:43 12/13/2024 13:56:52 Adult health examination 070562095 Z00.00 Flu vaccine declined. PCV20, RSV, Shingrix and COVID booster advised via local pharmacy. Will screen based on risk factors. Regular dental and ophtho care advised as well as sunscreen and seat belt use. Distracted driving discussed. Breast, cervical and colon cancer screening are utd. Advance directives discussed and in place. 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 Administra tion of pneumococcal vaccine 91838355 Z23 Varicella vaccination 68 727876 Z23 Essential hypertension 21561432 I10 Well controlled on current regimen. Will continue. Hypothyroidism 16198722 E03.9 Clinically and biochemica lly euthyroid. Continue current dose. Body mass index 30+ - obesity 240489508 E66.01 Z68.36 Peripheral arterial occlusive disease 338247031 I73.9 Based on abnl PVR in 2017, but recent vascular eval (08/2023) was basically normal. Follow up left PRN. I will continue to try and work on risk factor control for now. Benefits of smoking cessation discussed. Tobacco de pendence syndrome 18136132 F17.290 Pt is precontemp lative again, does not want to start buproprion with other medication s she was Understand s/accepts potential consequenc es and to call if treatment is desired. LDCT/lung cancer screening is due. Pure hypercholesterolemia 216325208 E78.01 On moderate dose statin, with goal LDL control. Continue current dose. Obstructiv e sleep apnea syndrome 62561075 G47.33 Referral to sleep med offered but declined by pt. Understand s potential health consequenc es to untreated ILDA. Impaired f asting glycemia 316473023 R73.01 Has lost weight and doing fairly well with diet/lifes tyle changes. Will monitor. Administra tion of viral vaccine 61410448 Z29.11 Polymyalgi a rheumatica 22648291 M35.3 Formally diagnosed by rheum, tapering off of prednisone Nicotine dependence 5629 4008 Z87.891 LDCT Lung Cancer Screening Program Annual Order, needs to contact [place] to see where her preferred location is. Health Concerns Section Related Observation LastModified by Organization Detai ls LastModified Time None Recorded Concern Status LastModified by Organization Details LastModified Time None Recorded Advance Directives Directive Y: HCP/ Dtr-Devora Reza Payers Encounter Date Sequence Insurance Name Policy Number Policy Mason Covered Member ID Mason Member ID Guarantor Name 12/08/2023 1 [facility] (MEDICARE REPLACEMENT/A DVANTAGE - PPO) [id number] Cari Prasad [id number] Cari Prasad 01/09/2024 1 [facility] (MEDICARE REPLACEMENT/A DVANTAGE - PPO) [id number] Cari Prasad [id number] Cari Prasad 04/12/2024 1 [facility] (MEDICARE REPLACEMENT/A DVANTAGE - PPO) [id number] Cari Prasad [id number] Cari Prasad 07/19/2024 1 [facility] (MEDICARE REPLACEMENT/A DVANTAGE - PPO) [id number] Cari Prasad [id number] Cari Prasad 12/13/2024 1 [facility] (MEDICARE REPLACEMENT/A DVANTAGE - PPO) [id number] Cari Prasad [id number] Cari Prasad Notes Date Note Type Note Provider Name and Address Organization Details Recorded Time 12/08/19 24 text/htm l Generic HPI TemplateReported bypatient.Notes:Here for a physical. Feels well. Needs to get back to a dentist, utd on ophtho exam.Medicare Annual Wellness VisitReported bypatient.Diet and Nutrition:healthy diet Depression Risk:never feels sad, empty, or tearful; no loss of interest in activities; no significant changes in weight; no sleep disturbances or insomnia; no agitation; no loss of energy; no history of depressionMusculoskeletal PainReported bypatient.Location:bilateral shoulder; bilateral wrist; bilateral hand; bilateral knee Severity:improving Duration:present for 6-12 months Timing:constant Associated Symptoms:no fever; no weak limbs; no tinglingNotes:Continues to have limiting polyarthralgia and synovitis that only responds to prednisone. ESR/CRP were elevated, YOSELIN/rheumatoid factor and lyme testing all negative. ATC only able to see her in a couple of months. Ken Griffiths MD [address] [address], [place], [phone], [facility] 12/14/2023 10:23:33 01/09/20 24 text/htm l HyperlipidemiaReported bypatient.Current Therapy:currently taking: (atorvastatin); last cholesterol level: (159); last LDL level: (92); last triglyceride level: (88); last HDL level: (49) Compliance:compliant; compliant with diet; exercises Complications:no coronary artery disease; no peripheral artery disease; no cardiovascular diseaseNotes:Atorvastatin was help in Nov because of pain, follow up lipid panel and CVD risk score still warrant treatment..Hypertension F/UReported bypatient.Associated Symptoms:no dizziness; no lightheadedness; no chest pain; no shortness of breath; no palpitations; no edema; no calf pain with exertion Lifestyle:regular exercise; limiting/avoiding salt Medications:taking medications as directed; no side effects from medicationRetail Clinic Smoking CessationReported bypatient.Timing:daily Context:during stress Associated Symptoms:no weight loss; no fever/chills/sweats; no fatigueNotes:Lung cancer screening/LDCT scan in Oct showed stable low risk nodules. 67yo with ongoing symptoms of pain in my whole body. Notes that she has had multiple prior evaluations including rheumatology (2015), hand surgery, vascular surgery. Notes pain in legs and generalized body aches. Has been having progressively worsening muscle pain since June 2023 Symptoms and elevated inflammatory markers have basically resolved on prednisone taper which she is filling this week. Even her longstanding back/leg pain have resolved on prednisone 10mg daily. Still waiting for rheumatology appt. Still smoking. Ken Griffiths MD [address] [address], [place], [phone], [facility] 01/09/2024 12:57:54 04/12/20 24 text/htm l HyperlipidemiaReported bypatient.Type of hyperlipidemia:hypercholester olemia Current Therapy:currently taking: (atorvastatin); last cholesterol level: (180); last LDL level: (98); last triglyceride level: (100); last HDL level: (64) Compliance:compliant; compliant with diet; exercises Complications:no coronary artery disease; no peripheral artery disease; no cardiovascular diseaseHypertension F/UReported bypatient.Associated Symptoms:no dizziness; no lightheadedness; no chest pain; no shortness of breath; no palpitations; no edema; no calf pain with exertion Lifestyle:regular exercise; limiting/avoiding salt Medications:taking medications as directed; no side effects from medicationMusculoskeletal PainReported bypatient.Location:right hip; kneeNotes:Has been on prednisone for new PMR diagnosis and was told to walk/exercise more. As she engaged this recommendation she developed right hip pain.[facility] Smoking CessationReported bypatient.Timing:daily Context:during stress Associated Symptoms:no weight loss; no fever/chills/sweats; no fatigueNotes:Still smoking, lung cancer screening is current. Would like to revisit buproprion.Skin LesionReported bypatient.Location:chest; arms; legs Duration:started 3 week(s) ago Onset/Timing:gradual Context:no known triggerNotes:Has noticed hypopigmented macules on extremities/abdomen. Recent A1C was 6.2, currently on 7.5mg of prednisone daily. Ken Griffiths MD [address], [address], [facility] 04/12/2024 13:37:51 07/19/20 24 text/htm l HyperlipidemiaReported bypatient.Type of hyperlipidemia:hypercholester olemia Current Therapy:currently taking: (atorvastatin); last cholesterol level: (180); last LDL level: (98); last triglyceride level: (100); last HDL level: (64) Compliance:compliant; compliant with diet; exercises Complications:no coronary artery disease; no peripheral artery disease; no cardiovascular diseaseHypertension F/UReported bypatient.Associated Symptoms:no dizziness; no lightheadedness; no chest pain; no shortness of breath; no palpitations; no edema; no calf pain with exertion Lifestyle:regular exercise; limiting/avoiding salt Medications:taking medications as directed; no side effects from medicationMusculoskeletal PainReported bypatient.Location:right hip; kneeNotes:Has been on prednisone for new PMR diagnosis and was told to walk/exercise more. As she engaged this recommendation she developed right hip pain. Pt reluctant to consider surgical interventions.[facility] Smoking CessationReported bypatient.Timing:daily Context:during stress Associated Symptoms:no weight loss; no fever/chills/sweats; no fatigueNotes:Still smoking, lung cancer screening is current. Would like to revisit buproprion. Recent A1C was 6.2, currently on 7.5mg of prednisone daily. Ken Griffiths MD [address], [address], [facility] 08/07/2024 07:36:58 12/13/19 25 text/htm l Generic HPI TemplateReported bypatient.Notes:Here for a physical. Feels well. Needs to get back to a dentist, utd on ophtho exam.Medicare Annual Wellness VisitReported bypatient.Diet and Nutrition:healthy diet Fracture Risk:no history of fractures; no recent explained fracture; no sudden unexplained fractures; no previous musculoskeletal injuries Physical Activity:does not exercise on a regular basis;decreased physical activity;deconditioned due to sedentary lifestyle Depression Risk:never feels sad, empty, or tearful; no loss of interest in activities; no significant changes in weight; no sleep disturbances or insomnia; no agitation; no loss of energy; no history of depression Ken Griffiths MD [address], [address], [facility] 12/13/2024 13:59:49 OBGyn Episode No OBEpisode recorded.
== END 2025-02-19 14:50 | disposition home or self-care (01) ==
LOC: HO.RHES 13:49
PROVIDERS: PCP Pediatrics; Visit Provider Internal Medicine Rheumatology
DX: M35.3 Polymyalgia rheumatica (principal); M70.61 Trochanteric bursitis, right hip; M16.11 Unilateral primary osteoarthritis, right hip
CPT/HCPCS: 99214; G2211

== ENCOUNTER 2025-02-19 13:48 | Outpatient (REF) | payer MEDICARE, SELFPAY ==
[2025-02-19 18:00] LABS: C Reactive Protein 0.23 mg/dL (< or = 0.50)
--- OUTSIDE RECORDS SUMMARY | 2025-02-19 18:07 | XMS_ITS | Clinical Summary ---
Author Organization 299 [facility] Address [address] [place] [address] Phone Care Team Providers Care Broom Stitcher Name Role Phone Unavailable Primary Care Provider Unavailabl e Encounters Date Type Department Care Team Description 02/07/2025 Lab Requisition [facility] - Main Lab [address] [facility] [place] [address] Sil Byrnes MD Acute vaginitis [...] vaginalis Negative Negative 02/08/2025 1:44 PM EDT [facility] Gardnerella vaginalis Positive(A) Negative 02/08/2025 1:44 PM EDT [facility] Rowan Species Positive(A) Negative 02/09/20 1:44 PM EDT [facility] Swab Vaginal structure / Unknown 02/07/2025 02/07/2025 6:18 PM EDT us Sil Byrnes MD LAB MICROBIOLOGY - GENER AL ORDERABLES Final Result [facility] [address] [place] [address], [place] [phone] from Last 3 Months Insurance [employer] MEDICARE
--- OUTSIDE RECORDS SUMMARY | 2025-02-19 18:08 | XMS_ITS | Encounter Summary ---
Author Organization [employer] Address [address] [place] [address] Care Team Providers Care Research Environmental Engineer Name Role Phone Unavailable Primary Care Provider Unavailabl e Encounter Details Date Type Department Care Team (Late st Contact Info) Description 02/07/2025 Lab Requisition [facility] - Main Lab [address] [place] [phone] Sil Byrnes MD [address] [phone] Acute vaginitis Social History Tobacco Use Types [...] vaginalis Negative Negative 02/08/2025 1:44 PM EDT [facility] Gardnerella vaginalis Positive(A) Negative 02/08/2025 1:44 PM EDT [facility] Rowan Species Positive(A) Negative 02/09/20 25 1:44 PM EDT [facility] Swab Vaginal structure / Unknown 02/07/2025 02/07/2025 6:18 PM EDT us Sil Byrnes MD LAB MICROBIOLOGY - GENER AL ORDERABLES Final Result [facility] [address] [place] [address], documented in this encounter Visit Diagnoses Diagnosis Acute vaginitis Unspecified vaginitis and vulvovaginitis documented in this encounter
[2025-02-19 18:44] LABS: Erythrocyte Sedimentation Rate 14 MM/HR (0-20)
== END 2025-02-19 13:49 | disposition home or self-care (01) ==
LOC: HO.HKASLDS 13:48
PROVIDERS: PCP Pediatrics; Visit Provider Internal Medicine Rheumatology
DX: Z79.899 Other long term (current) drug therapy (principal); M35.3 Polymyalgia rheumatica; M70.61 Trochanteric bursitis, right hip; M16.11 Unilateral primary osteoarthritis, right hip
CPT/HCPCS: 36415; 85652; 86140; 99212

== ENCOUNTER 2025-04-09 14:04 | Outpatient (REF) | payer MEDICARE, SELFPAY ==
[2025-04-09 17:59] LABS: Alanine Aminotransferase 13 U/L (0-31); Aspartate Amino Transferase 19 U/L (5-31); C Reactive Protein 0.43 mg/dL (< or = 0.50); Estimated Glomerular Filt Rate > 60
[2025-04-09 18:28] LABS: Erythrocyte Sedimentation Rate 19 MM/HR (0-20)
[2025-04-13 14:03] LABS: Aldolase 4.5 U/L (<=8.1)
== END 2025-04-09 14:05 | disposition home or self-care (01) ==
LOC: HO.LAB 14:04
PROVIDERS: PCP Pediatrics; Visit Provider Internal Medicine Rheumatology
DX: Z79.899 Other long term (current) drug therapy (principal); M25.511 Pain in right shoulder; M25.512 Pain in left shoulder; Z79.1 Long term (current) use of non-steroidal anti-inflammatories (NSAID); M35.3 Polymyalgia rheumatica; M25.50 Pain in unspecified joint; R20.2 Paresthesia of skin; M70.61 Trochanteric bursitis, right hip; M16.11 Unilateral primary osteoarthritis, right hip
CPT/HCPCS: 36415; 82085; 82565; 84450; 84460; 85652; 86140; 99212

== ENCOUNTER 2025-04-09 14:04 | Outpatient (AMB) | payer MEDICARE, SELFPAY ==
--- NOTE | 2025-04-09 14:06 | A.OFFVIS_ITS ---
Vital Signs 04/09/25 14:17 Height 5 ft 5 in Weight 210 lb 8 oz BMI 35.0 BP 120/82 Blood Pressure Location Lt brachial Position Sitting Pulse 87 Pulse Source Pulse Oximeter Pulse Oximetry (%) 98 Oxygen Delivery Method Room Air Intake Visit Reasons: discuss symptoms Intake Note: Patient presents follow up PMR. Accompanied by: Self / Same As Patient Allergies lisinopril [From Zestril] Allergy (Severe, Verified 04/09/25 14:19) Angioedema HPI HPI discuss symptoms: Details: Tingling in left hand>right hand exacerbated when sleeping. More aches in arms when sitting down. SHe is dragging her legs. More pain in legs. She has soreness in her arms. She is able to get up out of bed. She was able to attend her grandchildren celebration over the last few months but had difficulty due to sitting for periods of time with a celebration. She continues to take meloxicam. Off of HCQ. HCQ caused hallucinations. [facility] Medical History PMR (polymyalgia rheumatica) Myalgia Rupture of left rotator cuff Prediabetes Impaired fasting glucose Single-level lumbosacral spondylosis with radiculopathy Cervical arthritis Multiple joint pain Arthritis of hand Arthralgia of acromioclavicular joint Diverticular disease Multiple nodules of lung Internal hemorrhoid Peripheral arterial occlusive disease Calcification of coronary artery Essential (primary) hypertension Obstructive sleep apnea Tobacco dependence syndrome Morbid obesity Pure hypercholesterolemia Hypothyroidism, unspecified H/O bone density study Surgical History Hx of colonoscopy History of appendectomy Family History Mother Arthritis Social History Household Members: None Alcohol intake: current Alcohol intake frequency: holidays/special occasions only Patient Tobacco Use Status: Current everyday Tobacco user Cigarette Packs Per Day: 5 Current occupational status: retired Physical Exam Vital Signs: Last Vital Signs Pulse 87 04/09/25 14:17 BP 120/82 04/09/25 14:17 Pulse Ox 98 04/09/25 14:17 Oxygen Delivery Method Room Air 04/09/25 14:17 BMI result Body Mass Index 35.0 Const Other: General: Comfortable CVS: RRR Respiratory: clear to auscultation bilaterally. Good respiratory effort Skin: No lesions seen MSK: No tenderness of joints in her hands. No synovitis. Nontender bilateral shoulders. Shoulder abduction 170 degrees bilateral with limited internal rotation of bilateral shoulders. Normal internal rotation of bilateral shoulders. Right hip external rotation is more limited than left. Right trochanteric bursa tenderness found. Normal knee flexion. No ankle or MTP tenderness. She is able to get up from seated position without using hands on hand rest. Negative Phalen's test and Tinel's test. Assessment & Plan Assessment & Plan (1) PMR (polymyalgia rheumatica): Comment: She has developed bilateral shoulder and thigh pain with right leg weakness off of hydroxychloroquine. Inflammatory markers 11/2024 normal. I will obtain inflammatory markers this visit to evaluate for PMR flare off of hydroxychloroquine. She has right hip osteoarthritis and trochanteric bursitis contributing to hip pain and will need rehabilitation program to improve right leg weakness. Rheumatology history: Initial presentation representing seronegative RA. She was on hydroxychloroquine until recently due to antifungal and antibiotic treatment. On hydroxychloroquine she had bad dreams, which resolved since she has been off of it. Code(s): M35.3 - Polymyalgia rheumatica Category: Medical Plan: Inflammatory markers ordered. If labs order, I will start prednisone 20 mg daily with inflammation marker check in 2 weeks. Inflammatory markers are normal, I will change meloxicam to celecoxib 200 mg twice a day. She will also start PT for lower extremity and upper extremity strengthening. Return to clinic in 3 months (2) Paresthesia of hand, bilateral: Comment: Suspect carpal tunnel syndrome Code(s): R20.2 - Paresthesia of skin Category: Medical Plan: EMG ordered (3) Trochanteric bursitis, right hip: Comment: Recurrent recurrent pain. She had cortisone injection 11/2024 with benefit Code(s): M70.61 - Trochanteric bursitis, right hip Category: Medical Plan: If inflammatory markers are normal, I will change NSAID. If she is prescribed prednisone due to possible PMR flare, she will have to hold NSAID PT ordered for lower extremity strengthening Return to clinic in 3 months (4) Osteoarthritis of right hip: Comment: Causing limited external rotation of right hip. Code(s): M16.11 - Unilateral primary osteoarthritis, right hip Category: Medical Qualifiers: Osteoarthritis type: primary Qualified Code(s): M16.11 - Unilateral primary osteoarthritis, right hip Plan: She agreed to start physical therapy for hip strengthening and to improve range of motion. 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 (current) use of non-steroidal anti-inflammatories (NSAID) NE electromyogram (EMG) Today R20.2 - Paresthesia of skin NE nerve conduction velocity Today R20.2 - Paresthesia of skin Aldolase Today M25.50 - Pain in unspecified joint, M25.511 - Pain in right shoulder, M25.512 - Pain in left shoulder, M35.3 - Polymyalgia rheumatica, 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 (current) use of non-steroidal anti-inflammatories (NSAID) Erythrocyte Sedimentation Rate Today M25.50 - Pain in unspecified joint, M25.511 - Pain in right shoulder, M25.512 - Pain in left shoulder, M35.3 - Polymyalgia rheumatica, Z79.1 - correction (current) use of non-steroidal anti- inflammatories (NSAID), Z79.899 - Other terminal operations supervisor (current) drug therapy C Reactive Protein Today M25.50 - Pain in unspecified joint, M25.511 - Pain in right shoulder, M25.512 - Pain in left shoulder, M35.3 - Polymyalgia rheumatica, Z79.1 - correction (current) use of non-steroidal anti-inflammatories (NSAID), Z79.899 - Other terminal operations supervisor (current) drug therapy Aspartate Amino Transferase Today M25.50 - Pain in unspecified joint, M25.511 - Pain in right shoulder, M25.512 - Pain in left shoulder, M35.3 - Polymyalgia rheumatica, Z79.1 - correction (current) use of non-steroidal anti-inflammatories (NSAID) Creatinine Today M25.50 - Pain in unspecified joint, M25.511 - Pain in right shoulder, M25.512 - Pain in left shoulder, M35.3 - Polymyalgia rheumatica, Z79.1 - correction (current) use of non-steroidal anti-inflammatories (NSAID) Coding Level of Care Code Est Pt Level 4 (30127) Complex EM visit Add On G2211 Diagnoses PMR (polymyalgia rheumatica) M35.3 Paresthesia of hand, bilateral R20.2 Trochanteric bursitis, right hip M70.61 Primary osteoarthritis of right hip M16.11 Osteoarthritis type: primary
[2025-04-09 14:17] VITALS: BP 120/82; PULSE 87; O2SAT 98; BMI 35.0
--- OUTSIDE RECORDS SUMMARY | 2025-04-09 16:12 | XMS_ITS | Clinical Summary ---
Author Organization 299 [facility] Address [address] [place] [address] Phone Care Team Providers Care Sole Trimmer Name Role Phone Unavailable Primary Care Provider Unavailabl e Encounters Date Type Department Care Team Description 02/07/2025 Lab Requisition [facility] - Main Lab 299 [facility] [place] [address] Sil Byrnes MD Acute vaginitis [...] vaginalis Negative Negative 02/08/2025 1:44 PM EDT [facility] Gardnerella vaginalis Positive(A) Negative 02/08/2025 1:44 PM EDT [facility] Rowan Species Positive(A) Negative 02/09/20 1:44 PM EDT [facility] Swab Vaginal structure / Unknown 02/07/2025 02/07/2025 6:18 PM EDT us Sil Byrnes MD LAB MICROBIOLOGY - GENER AL ORDERABLES Final Result [facility] [address] [place] [address], [place] [phone] from Last 3 Months Insurance [employer] MEDICARE
== END 2025-04-09 15:02 | disposition home or self-care (01) ==
LOC: HO.RHES 14:04
PROVIDERS: PCP Pediatrics; Visit Provider Internal Medicine Rheumatology
DX: M35.3 Polymyalgia rheumatica (principal); R20.2 Paresthesia of skin; M70.61 Trochanteric bursitis, right hip; M16.11 Unilateral primary osteoarthritis, right hip
CPT/HCPCS: 99214; G2211

== ENCOUNTER 2025-04-09 15:11 | Outpatient (REF) | payer MEDICARE, SELFPAY | END 2025-04-09 15:12 | disposition home or self-care (01) | LOC: HO.HKASLDS 15:11 | PROVIDERS: Visit Provider Internal Medicine Rheumatology | DX: Z13.89 Encounter for screening for other disorder (principal) ==

== ENCOUNTER 2025-04-18 15:55 | Outpatient (REF) | payer MEDICARE, SELFPAY ==
--- OUTSIDE RECORDS SUMMARY | 2025-04-18 19:34 | XMS_ITS | Clinical Summary ---
Author Organization 299 [facility] Address [address] [place] [address] Phone Care Team Providers Care Assembler Tractor Name Role Phone Unavailable Primary Care Provider Unavailabl e Encounters Date Type Department Care Team Description 02/07/2025 Lab Requisition [facility] - Main Lab [address] [facility] [place] [address] Sil Byrnes MD Acute vaginitis [...] vaginalis Negative Negative 02/08/2025 1:44 PM EDT [facility] Gardnerella vaginalis Positive(A) Negative 02/08/2025 1:44 PM EDT [facility] Rowan Species Positive(A) Negative 02/09/20 1:44 PM EDT [facility] Swab Vaginal structure / Unknown 02/07/2025 02/07/2025 6:18 PM EDT us Sil Byrnes MD LAB MICROBIOLOGY - GENER AL ORDERABLES Final Result [facility] [address] [place] [address], [place] [phone] from Last 3 Months Insurance [employer] MEDICARE
== END 2025-04-18 15:56 | disposition home or self-care (01) ==
LOC: HO.HKASLDS 15:55
PROVIDERS: Visit Provider Internal Medicine Rheumatology
DX: M25.511 Pain in right shoulder (principal); M25.512 Pain in left shoulder; Z79.1 Long term (current) use of non-steroidal anti-inflammatories (NSAID); M35.3 Polymyalgia rheumatica; M25.50 Pain in unspecified joint
CPT/HCPCS: 36415; 82550

== ENCOUNTER 2025-06-07 12:52 | Outpatient (REF) | payer MEDICARE, SELFPAY ==
--- NOTE | 2025-06-07 12:54 | EMG_ITS ---
Chief complaint: Chronic recurrent bilateral hand numbness Reason for referral: Evaluate for Carpal Tunnel Syndrome Referred by: Dr. Bishop Procedure done: Bilateral upper extremities NCS/EMG Precautions and/or limitations: None The limb temperature was monitored continuously and remained between 32-36 degrees C during the performance of the NCS. Nerve Conduction Studies Anti Sensory Summary Table ?Stim Site NR Onset (ms) Norm Onset (ms) Peak (ms) Norm Peak (ms) O-P Amp (?V) Norm O-P Amp Site1 Site2 Delta-0 (ms) Dist (cm) Geo (m/s) Norm Geo (m/s) Left Median Anti Sensory (2nd Digit) Wrist ? 3.6 4.7 <3.6 22.1 >10 Wrist 2nd Digit 3.6 14.0 39 Right Median Anti Sensory (2nd Digit) Wrist ? 3.0 5.1 <3.6 21.5 >10 Wrist 2nd Digit 3.0 14.0 47 Right Radial Anti Sensory (Thumb) Forearm ? 1.5 2.2 <3.1 6.6 Forearm Thumb 1.5 0.0 Left Ulnar Anti Sensory (5th Digit) Wrist ? 2.7 3.5 <3.7 15.1 >15.0 Wrist 5th Digit 2.7 14.0 52 Right Ulnar Anti Sensory (5th Digit) Wrist ? 2.4 3.5 <3.7 16.6 >15.0 Wrist 5th Digit 2.4 14.0 58 Motor Summary Table ?Stim Site NR Onset (ms) Norm Onset (ms) O-P Amp (mV) Norm O-P Amp iAmp (mV) Amp (1st) (%) Site1 Site2 Delta-0 (ms) Dist (cm) Geo (m/s) Norm Geo (m/s) Left Median Motor (Abd Poll Brev) Wrist ? 4.6 <3.9 14.3 >4.5 17.5 100.0 Elbow Wrist 4.2 21.0 50 >45 Elbow ? 8.8 13.5 16.6 94.4 Right Median Motor (Abd Poll Brev) Wrist ? 4.8 <3.9 10.5 >4.5 12.8 100.0 Elbow Wrist 4.3 22.0 51 >45 Elbow ? 9.1 9.1 11.2 86.7 Left Ulnar Motor (Abd Dig Minimi) Wrist ? 3.0 <3.0 6.5 >5 8.1 100.0 B Elbow Wrist 3.9 19.0 49 >45 B Elbow ? 6.9 5.5 6.9 84.6 A Elbow B Elbow 1.2 10.0 83 >45 A Elbow ? 8.1 6.9 8.4 106.2 Right Ulnar Motor (Abd Dig Minimi) Wrist ? 3.0 <3.0 8.9 >5 11.4 100.0 B Elbow Wrist 3.8 19.0 50 >45 B Elbow ? 6.8 8.5 11.2 95.5 A Elbow B Elbow 1.6 10.0 62 >45 A Elbow ? 8.4 8.1 10.8 91.0 EMG ?Side Muscle Nerve Root Ins Act Fibs Psw Amp Dur Poly Recrt Int Pat Comment Right 1stDorInt Ulnar C8-T1 Nml Nml Nml Nml Nml 0 Nml Complete Right FlexCarRad Median C6-7 Nml Nml Nml Nml Nml 0 Nml Complete Right FlexCarpiUln Ulnar C8,T1 Nml Nml Nml Nml Nml 0 Nml Complete Right Biceps Musculocut C5-6 Nml Nml Nml Nml Nml 0 Nml Complete Right Triceps Radial C6-7-8 Nml Nml Nml Nml Nml 0 Nml Complete Right Deltoid Axillary C5-6 Nml Nml Nml Nml Nml 0 Nml Complete Left 1stDorInt Ulnar C8-T1 Nml Nml Nml Nml Nml 0 Nml Complete Left FlexCarRad Median C6-7 Nml Nml Nml Nml Nml 0 Nml Complete Left FlexCarpiUln Ulnar C8,T1 Nml Nml Nml Nml Nml 0 Nml Complete Left Biceps Musculocut C5-6 Nml Nml Nml Nml Nml 0 Nml Complete Left Triceps Radial C6-7-8 Nml Nml Nml Nml Nml 0 Nml Complete Left Deltoid Axillary C5-6 Nml Nml Nml Nml Nml 0 Nml Complete FINDINGS: Bilateral median motor nerves showed prolonged distal latency, normal amplitude and normal conduction velocity. Bilateral median sensory nerve showed prolonged peak latency. All other nerves tested were within normal. Concentric needle EMG was performed in selected muscles of the bilateral upper extremities. Study did not reveal signs of electric abnormalities as shown in the table above. IMPRESSION: 1. This is an abnormal study. 2. There is electrodiagnostic evidence for bilateral moderate-severe median neuropathy at the wrist, consistent with carpal tunnel syndrome. 3. There is no electrodiagnostic evidence for ulnar neuropathy, brachial plexopathy, or cervical radiculopathy. Thank you for your kind referral. Huong Medellin MD, GUANACO Board Certified, [place] [employer] and Rehabilitation (ABPMR) Board Certified, [place] Board of Electrodiagnostic Medicine (ABEM) CODIN [phone] x 2 MTDD
--- OUTSIDE RECORDS SUMMARY | 2025-06-07 12:55 | XMS_ITS | Clinical Summary ---
Author Organization [address] [facility] Address [address] [place] [address] Phone Care Team Providers Care Bridge Expert Name Role Phone Unavailable Primary Care Provider Unavailabl e Social History Tobacco Use Types Packs/Day Years [...] Vaccine ( - 2023-2 5 season) 2024 Depression Screening 10/24/2024 Colorectal Cancer Screening: Colonoscopy 02/08/2025 Falls Risk Assessment 02/08/2025 Hepatitis C Screening 02/08/2025 Medicare Annual Wellness Visit 02/08/2025 Osteoporosis Screening (Bone Density Screening) 02/08/2025 Social Influencers of Health Screening 02/08/2025 Influenza Vaccine (#1) 2025 RSV Immunization Adult Patie nts (1 [...] on patient's age to complete this topic Insurance [employer] MEDICARE
== END 2025-06-07 12:53 | disposition home or self-care (01) ==
LOC: HO.NEURO 12:52
PROVIDERS: Visit Provider Internal Medicine Rheumatology
DX: R20.2 Paresthesia of skin (principal)
CPT/HCPCS: 95886; 95911

== ENCOUNTER → 2025-06-07 12:54 | Outpatient (BNV) | payer MEDICARE, SELFPAY | PROVIDERS: Visit Provider Physical Medicine & Rehabilitation | DX: G56.83 Other specified mononeuropathies of bilateral upper limbs (principal) | CPT/HCPCS: 95886; 95911 ==

== ENCOUNTER 2025-06-17 13:00 | Outpatient (RCR) | payer MEDICARE, SELFPAY ==
--- NOTE | 2025-05-13 15:31 | MHC.PT.EP ---
[facility] [employer] Office [place] Office [place] Office [address] G[address]me[place] Fuller [address] [phone] F: [phone] F: [phone] F: [phone] F: [phone] Physical Therapy Plan of Care Date of Evaluation: 05/13/25 Date of Surgery: Diagnosis: PT ordered for lower extremity strengthening Return to clinic in 3 months (4) Osteoarthritis of right hip: Comment: Causing limited external rotation of right hip. Code(s): M16.11 - Unilateral primary osteoarthritis, right hip Category: Medical Qualifiers: gnoses PMR (polymyalgia rheumatica) M35.3 Paresthesia of hand, bilateral R20.2 Trochanteric bursitis, right hip M70.61 Primary osteoarthritis of right hip M16.11 Osteoarthritis type: primary Documented By:Dale Bishop MD04/09/25 1406 Assessment: Pt is a [employer] retired 69 y/o female, referred to PT from Dr. Bishop for treatment: PT ordered for lower extremity strengthening Return to clinic in 3 months (4) Osteoarthritis of right hip: Comment: Causing limited external rotation of right hip. Code(s): M16.11 - Unilateral primary osteoarthritis, right hip Category: Medical Qualifiers: gnoses PMR (polymyalgia rheumatica) M35.3 Paresthesia of hand, bilateral R20.2 Trochanteric bursitis, right hip M70.61 Primary osteoarthritis of right hip M16.11 Osteoarthritis type: primary Documented By:Dale Bishop MD04/09/25 1406 Pain in R shoulder M25.511, Pain in L shoulder, M25.512 Pt with history of PMR, notes flare of sx in 04/17. Pt had some change to her medications, but notes decline in mobility and flare of pain in R hip, L shoulder>R shoulder. Pt presents to office without AD, exhibiting gait instability and weakness in her R hip. She was educated re: the potential benefit in obtaining a std cane to improve gait deviations, reduce pain, and increase her safety. Post initial evaluation she was not only issued a written HEP program but she was educated/trialed in use of ice to reduce her L>R shoulder pain, and R hip pain (with (+) relief verbalized). Cari will benefit from PT twice a week. She brings high level of motivation and appears to be an excellent candidate for PT. She will be see by Dr Bishop again in June. Frequency and Duration: The patient will be seen 2x/week x 4-6 weeks Short Term Goals: 1. Initiate self care/HEP program. 2. Pt will demonstrate sit<>stand with good ability; good eccentric control with lowering. 3. Self care management for pain/body mechanics. 4. Initiate lower body flexibility program. 5. Complete gait training with std cane/stairs to improve safety/reduce pain. Fpc Goals: 1. I HEP for self care/body mechanics management. 2. Pt will complete bed mobility scooting/bridge with good symmetry and strength. 3. Pt will demonstrate hip abd strength to 5/5. 4. SPADI score and LEFS score to be improved since initial assessment. 5. Bridge with good symmetry and support. Treatment Plan: Modalities to reduce pain, spasms and effusion. Manual therapy to restore motion and function. Therapeutic exercise to improve strength and flexibility. Neuromuscular re-education for posture and balance. Therapeutic activities to return to functional activities of daily living. Electronically signed by: Estelita Sun, PT, DPT Please sign and return to therapist. Thank you for your referral.
--- NOTE | 2025-06-06 11:28 | MHC.PT.OD ---
[facility] [place] Office [place] Office [address] [place] [address] [address] [facility] [address] [phone] F: [phone] F: [phone] F: [phone] Physical Therapy Daily Note Diagnosis: PT ordered for lower extremity strengthening Return to clinic in 3 months (4) Osteoarthritis of right hip: Comment: Causing limited external rotation of right hip. Code(s): M16.11 - Unilateral primary osteoarthritis, right hip Category: Medical Qualifiers: gnoses PMR (polymyalgia rheumatica) M35.3 Paresthesia of hand, bilateral R20.2 Trochanteric bursitis, right hip M70.61 Primary osteoarthritis of right hip M16.11 Osteoarthritis type: primary Documented By:Dale Bishop MD04/09/25 1406 Date of Surgery: Date of Evaluation: 05/13/25 Date of Treatment: 06/04/25 Treatments to Date: Cancellations to Date: No Shows to Date: Authorized Visits: 6 Insurance End Date: Precautions/ Contraindications:HTN, preDM Subjective: I went to the grocery stores over the weekend and Im still really sore since that time. (Presents with NO AD very unsteady). Pain Score and Location: Objective Flowsheet: Tests & Measures Exercises Seated NUSTEP x 10 minutes level 2.0 x for warm-up seat #16 with UE set at #7 LBTR with pillow between the knees x 4R x 20 sec hold, AAROM SKTC with aide of towel for x 4R x 20 sec hold, AAROM hip ER with sheet x 4R x 20 sec hold, posterior pelvic tilt x 2 set 10R, AAROM shoulder flexion with aide of opposite shoulder and then shown with cane as option x 10 sec hold x 5R. Seated PWR step and supine PWR step x 10R with boost for encouragement and SAQ x 2 sets 10R, tac march and tac bridge with modified range to comfort x10R each. Education and encouagement that it is a good idea to try and exercise when sore and the hope is the exercises will make her feel better. Educated re: stopping activities if they should make her feel pain or soreness. IASTM HG #9 strumming technique over R ITB musculature in effort to increase tissue extensibility, Gait training with use of std cane in L UE to offset pressure with R hip, step to> step through. Education re: gaining balance/stability upon standing to ensure safety for transitions. Discussed benefit in potential of rollator- pt initially was resistant but after showing patient how this could help her she appeared more open to it. Improved gait quality and balance with use of walker vs std cane (at least today). Pt notes varying level of need for AD. Modalities Assessment: 06/04/25: Cari is very unsteady in her walking today. We have discussed the benefits of a rollator and up until today she was hesitant to use. She would benefit from obtaining a prescription for a rollator and a std cane to improve ease gait deviations. If you are able to write her a prescription for both a rollator and a std cane that would be helpful as her insurance would likely cover these items. I have obtained a loaner std cane from the [facility] until she can obtain her own. She has been compliant in her home program. She is was very sore along her R greater trochanter today. 05/30/25; Pt R hip sore but notes walking better overall. Pt doing better with respect to core and hip stabilization program. 05/24/25; Pt verbalized feeling somewhat better after session, improved education for carryover of new exercises, things to try when feeling pain. Pt with antalgic gait, would benefit from use of std cane. Previously discussed- pt to obtain cane soon. 05/20/25: Cari unsteady on her feet today; gait improved with use of std cane however due to instability/catch/buckling of R LE pt may improve safety with use of walker however pt not open to this at this time. Pt notes she will be receiving a cane from a friend soon. Pt has had xrays of R hip done in past- (+) OA. Pt challenged with SL hip abduction. Pt fatigued. Pt educated we do not want soreness >1 day following session of PT otherwise too much. 05/16/25: Pt expressing relief of sx following manual therapy. Positive response to ice L>R shoulder and R hip. Pt is a [employer] retired 69 y/o female, referred to PT from Dr. Bishop for treatment: PT ordered for lower extremity strengthening Return to clinic in 3 months (4) Osteoarthritis of right hip: Comment: Causing limited external rotation of right hip. Code(s): M16.11 - Unilateral primary osteoarthritis, right hip Category: Medical Qualifiers: gnoses PMR (polymyalgia rheumatica) M35.3 Paresthesia of hand, bilateral R20.2 Trochanteric bursitis, right hip M70.61 Primary osteoarthritis of right hip M16.11 Osteoarthritis type: primary Documented By:Dale Bishop MD04/09/25 1406 Pain in R shoulder M25.511, Pain in L shoulder, M25.512 Pt with history of PMR, notes flare of sx in 04/17. Pt had some change to her medications, but notes decline in mobility and flare of pain in R hip, L shoulder>R shoulder. Pt presents to office without AD, exhibiting gait instability and weakness in her R hip. She was educated re: the potential benefit in obtaining a std cane to improve gait deviations, reduce pain, and increase her safety. Post initial evaluation she was not only issued a written HEP program but she was educated/trialed in use of ice to reduce her L>R shoulder pain, and R hip pain (with (+) relief verbalized). Cari will benefit from PT twice a week. She brings high level of motivation and appears to be an excellent candidate for PT. She will be see by Dr Bishop again in June. PT Plan: Progress to [facility] as tolerated, AAROM for L>R hip, core and hip stabilization. Obtain/ask for script for rollator style walker and std cane from Dr. Bishop Short Term Goals: 1. Initiate self care/HEP program. 2. Pt will demonstrate sit<>stand with good ability; good eccentric control with lowering. 3. Self care management for pain/body mechanics. 4. Initiate lower body flexibility program. 5. Complete gait training with std cane/stairs to improve safety/reduce pain. Staffing Associate Goals: 1. I HEP for self care/body mechanics management. 2. Pt will complete bed mobility scooting/bridge with good symmetry and strength. 3. Pt will demonstrate hip abd strength to 5/5. 4. SPADI score and LEFS score to be improved since initial assessment. 5. Bridge with good symmetry and support. Electronically signed by: Estelita Sun, PT, DPT
--- NOTE | 2025-06-18 13:11 | MHC.PT.OD ---
[facility] [place] Office [place] Office [address] [place] [address] [address] [facility] [phone] F: [phone] F: [phone] F: [phone] Physical Therapy Daily Note Diagnosis: PT ordered for lower extremity strengthening Return to clinic in 3 months (4) Osteoarthritis of right hip: Comment: Causing limited external rotation of right hip. Code(s): M16.11 - Unilateral primary osteoarthritis, right hip Category: Medical Qualifiers: gnoses PMR (polymyalgia rheumatica) M35.3 Paresthesia of hand, bilateral R20.2 Trochanteric bursitis, right hip M70.61 Primary osteoarthritis of right hip M16.11 Osteoarthritis type: primary Documented By:Dale Bishop MD04/09/25 1406 Date of Surgery: Date of Evaluation: 05/13/25 Date of Treatment: 06/17/25 Treatments to Date: Cancellations to Date: No Shows to Date: Authorized Visits: 8 Insurance End Date: Precautions/ Contraindications:HTN, preDM Subjective: Pt states she was seen by her PCP who offered to send her to see an orthopedist for her R hip. Notes she went to the grocery store but was not as sore as her last trip out. Presents with loaner cane. Pain Score and Location: Objective Flowsheet: Tests & Measures Exercises Seated NUSTEP x 10 minutes level 2.0 x for warm-up seat #16 with UE set at #7 LBTR with pillow between the knees x 4R x 20 sec hold, AAROM SKTC with aide of towel for x 4R x 20 sec hold, AAROM hip ER with sheet x 4R x 20 sec hold, posterior pelvic tilt x 2 set 10R, AAROM shoulder flexion with aide of opposite shoulder and then shown with cane as option x 10 sec hold x 5R. SL hip abd reviewed x 10R each side. Issued scripts to patient and faxed scripts to [facility] per pt request (for wrist splints, std cane, and lightweight rollator). Pt to contact medical supplier for follow up after fax was sent. No relief verbalized with rock-tape trial. MHP applied to lateral hip musculature while in SL in effort to increase tissue extensibility/reduce pain. IASTM HG #8 strumming technique for ITB/lateral hip. Sensation intact. SKin intact pre/post. Checked in with Dr. Bishop nurse to assess status of script for rollator and std cane (has been printed but needs Dr. Bishop signature) Modalities Assessment: 06/17/25: Pt has attended 8 session of PT to date; with somewhat plateaued progress in attempt to alleviate pain in R hip. She has been educated and established in a HEP, expressing limited compliance at time due to pain/soreness afterwards. It is difficult to discern muscle soreness from exercise vs. sharp pain to avoid when speaking to patient with regard to sx. Pt has been using std cane but expresses has not always been using when in the home, admits is a furniture walker at times. Awaiting arrival of and pickup rollator (script faxed to medical supplier along with one for wrist splints and std cane). Pt has been using loaner std cane (PT obtained for patient from [facility] until her personal cane arrives). Pt has been experiencing on/off anterior/groin pain in addition to sx at site of R lateral hip. Pt has been encouraged to obtain a rollator/stationary bike for self-care/ROM/strength at home, enjoys use of stepper when in the office. We plan to complete a few sessions of PT once obtaining rollator walker to review proper use. She notes she has upcoming appt with Dr. Bishop in ?early July. Pt notes she had an xray in the past (none in system to view in [facility] system, staging of OA unknown). She vocalizes her PCP mentioned possible referral to orthopedist which she was against due to not wanting any form of surgery or discussion for such. 06/11/25: Cari presents with loaner std cane she was given from PT. She is awaiting her new rollator and std cane (script in processing from Dr. Bishop) 06/04/25: Cari is very unsteady in her walking today. We have discussed the benefits of a rollator and up until today she was hesitant to use. She would benefit from obtaining a prescription for a rollator and a std cane to improve ease gait deviations. If you are able to write her a prescription for both a rollator and a std cane that would be helpful as her insurance would likely cover these items. I have obtained a loaner std cane from the [facility] until she can obtain her own. She has been compliant in her home program. She is was very sore along her R greater trochanter today. 05/30/25; Pt R hip sore but notes walking better overall. Pt doing better with respect to core and hip stabilization program. 05/24/25; Pt verbalized feeling somewhat better after session, improved education for carryover of new exercises, things to try when feeling pain. Pt with antalgic gait, would benefit from use of std cane. Previously discussed- pt to obtain cane soon. 05/20/25: Cari unsteady on her feet today; gait improved with use of std cane however due to instability/catch/buckling of R LE pt may improve safety with use of walker however pt not open to this at this time. Pt notes she will be receiving a cane from a friend soon. Pt has had xrays of R hip done in past- (+) OA. Pt challenged with SL hip abduction. Pt fatigued. Pt educated we do not want soreness >1 day following session of PT otherwise too much. 05/16/25: Pt expressing relief of sx following manual therapy. Positive response to ice L>R shoulder and R hip. Pt is a [employer] retired 69 y/o female, referred to PT from Dr. Bishop for treatment: PT ordered for lower extremity strengthening Return to clinic in 3 months (4) Osteoarthritis of right hip: Comment: Causing limited external rotation of right hip. Code(s): M16.11 - Unilateral primary osteoarthritis, right hip Category: Medical Qualifiers: gnoses PMR (polymyalgia rheumatica) M35.3 Paresthesia of hand, bilateral R20.2 Trochanteric bursitis, right hip M70.61 Primary osteoarthritis of right hip M16.11 Osteoarthritis type: primary Documented By:Dale Bishop MD04/09/25 1406 Pain in R shoulder M25.511, Pain in L shoulder, M25.512 Pt with history of PMR, notes flare of sx in 04/17. Pt had some change to her medications, but notes decline in mobility and flare of pain in R hip, L shoulder>R shoulder. Pt presents to office without AD, exhibiting gait instability and weakness in her R hip. She was educated re: the potential benefit in obtaining a std cane to improve gait deviations, reduce pain, and increase her safety. Post initial evaluation she was not only issued a written HEP program but she was educated/trialed in use of ice to reduce her L>R shoulder pain, and R hip pain (with (+) relief verbalized). Crai will benefit from PT twice a week. She brings high level of motivation and appears to be an excellent candidate for PT. She will be see by Dr Bishop again in June. PT Plan: Progress to [facility] as tolerated, AAROM for L>R hip, core and hip stabilization. Obtain rollator/educate re: proper use Follow up with Dr. Bishop in early JUL Short Term Goals: 1. Initiate self care/HEP program. 2. Pt will demonstrate sit<>stand with good ability; good eccentric control with lowering. 3. Self care management for pain/body mechanics. 4. Initiate lower body flexibility program. 5. Complete gait training with std cane/stairs to improve safety/reduce pain. Usp Goals: 1. I HEP for self care/body mechanics management. 2. Pt will complete bed mobility scooting/bridge with good symmetry and strength. 3. Pt will demonstrate hip abd strength to 5/5. 4. SPADI score and LEFS score to be improved since initial assessment. 5. Bridge with good symmetry and support. Electronically signed by: Estelita Sun, PT, DPT
== END 2025-07-31 10:47 | disposition home or self-care (01) ==
LOC: HO.PTS 13:00
PROVIDERS: Visit Provider Internal Medicine Rheumatology
DX: M70.61 Trochanteric bursitis, right hip (principal); M16.11 Unilateral primary osteoarthritis, right hip; M35.3 Polymyalgia rheumatica; M25.511 Pain in right shoulder; M25.512 Pain in left shoulder
CPT/HCPCS: 97014; 97110; 97116; 97140; 97162; 97530

== ENCOUNTER 2025-07-17 14:08 | Outpatient (AMB) | payer MEDICARE, SELFPAY ==
[2025-07-17 14:16] VITALS: BP 130/80; PULSE 82; O2SAT 99; BMI 35.0
--- NOTE | 2025-07-17 14:16 | A.OFFVIS_ITS ---
Vital Signs 07/17/25 14:16 Height 5 ft 5 in Weight 210 lb 1.608 oz BMI 35.0 BP 130/80 Blood Pressure Location Lt brachial Position Sitting Pulse 82 Pulse Source Pulse Oximeter Pulse Oximetry (%) 99 Oxygen Delivery Method Room Air Intake Visit Reasons: 3 Months Intake Note: Patient presents follow up PMR. Accompanied by: Self / Same As Patient Allergies lisinopril (From Zestril) Allergy (Severe, Verified 07/17/25 14:16) Angioedema HPI HPI 3 Months: Details: Pain in right lateral hip is causing difficulty with walking. SHe complete PT and advanced to using cane and walker. She had improvement in range of motion of her upper extremities with physical therapy. Celebrex his help reduce swelling in her hands. [facility] Medical History PMR (polymyalgia rheumatica) Myalgia Rupture of left rotator cuff Prediabetes Impaired fasting glucose Single-level lumbosacral spondylosis with radiculopathy Cervical arthritis Multiple joint pain Arthritis of hand Arthralgia of acromioclavicular joint Diverticular disease Multiple nodules of lung Internal hemorrhoid Peripheral arterial occlusive disease Calcification of coronary artery Essential (primary) hypertension Obstructive sleep apnea Tobacco dependence syndrome Morbid obesity Pure hypercholesterolemia Hypothyroidism, unspecified H/O bone density study Surgical History Hx of colonoscopy History of appendectomy Family History Mother Arthritis Social History Household Members: None Alcohol intake: current Alcohol intake frequency: holidays/special occasions only Patient Tobacco Use Status: Current everyday Tobacco user Cigarette Packs Per Day: 5 Current occupational status: retired Physical Exam Vital Signs: Last Vital Signs Pulse 82 07/17/25 14:16 BP 130/80 07/17/25 14:16 Pulse Ox 99 07/17/25 14:16 Oxygen Delivery Method Room Air 07/17/25 14:16 BMI result Body Mass Index 35.0 Const Other: General: Comfortable CVS: RRR Respiratory: clear to auscultation bilaterally. Good respiratory effort Skin: No lesions seen MSK: No tenderness of joints in her hands. No synovitis. Normal range of motion of upper extremities. Right hip external rotation is more limited than left. Right trochanteric bursa tenderness found. Normal knee flexion. No ankle or MTP tenderness. Uses cane to ambulate. Office Procedures AMB Joint Injection/Aspiration Joint Injection/Aspiration Details: Right trochanteric bursa Prep: site was prepped using aseptic technique Injected: 40 mg of, Kenalog, with 1 mL of and 1% plain lidocaine Procedure: Informed verbal consent was obtained. The patient tolerated the procedure well. Postprocedure protocol was discussed with patient. Coding 15757 - Large joint Procedure code (CPT) selection complete Office Meds lidocaine (PF) 10 mg/mL (1 %) injection solution Performing Provider: Dale Bishop MD Performing Location: [facility] Administered by: Kiya Govea RN on 07/17/25 15:02 Dose Route Admin Location Dispensed Lot Number Expiration Date [facility] [place] [employer] 1 mL Infiltration 2 mL [id number] 03/23/27 34760-984-28 [facility] Total Dispensed Waste 2 mL 50 % Kenalog 40 mg/mL suspension for injection Performing Provider: Dale Bishop MD Performing Location: [facility] Administered by: Kiya Govea RN on 07/17/25 15:02 Dose Route Admin Location Dispensed Lot Number Expiration Date [facility] [place] [employer] 40 mg intrabursal 1 mL [id number] 03/23/27 [address]-0 [employer] Total Dispensed Waste 1 mL 0 % Assessment & Plan Assessment & Plan (1) PMR (polymyalgia rheumatica): Comment: She has developed bilateral shoulder and thigh pain with right leg weakness off of hydroxychloroquine. Inflammatory markers 11/2024 normal and 03/2025. Muscle enzymes were also normal. Less likely related to PMR. PT improved range of m otion of upper extremities and lower extremities. Rheumatology history: Initial presentation representing seronegative RA. She was on hydroxychloroquine until recently due to antifungal and antibiotic treatment. On hydroxychloroquine she had bad dreams, which resolved since she has been off of it. Code(s): M35.3 - Polymyalgia rheumatica Category: Medical Plan: Monitor clinically Continue PT home exercise program Return to clinic in 3 months (2) Paresthesia of hand, bilateral: Comment: EMG confirmed bilateral carpal tunnel syndrome. She did not tolerate wrist braces in 2022. Code(s): R20.2 - Paresthesia of skin Category: Medical Plan: Wrist braces were as prescribed for patient. [employer] told her since she had braces prescribed for her in 2022 that the insurance would not cover them. She no longer has the braces at home. I have asked her to contact [employer] to see if she can obtain a new pair to wear at night. If she is unable to obtain wrist braces, I can proceed with treating carpal tunnel syndrome with cortisone injection. (3) Trochanteric bursitis, right hip: Comment: Recurrent pain radiating to groin region. She had cortisone injection 11/2024 with benefit. We discussed next steps. Failed PT. She chooses cortisone injection over changing NSAID. She has moderate right hip osteoarthritis on x- ray from April 2024 but her current pain is due to trochanteric bursitis. Code(s): M70.61 - Trochanteric bursitis, right hip Category: Medical Plan: Patient received right trochanteric bursa cortisone injection. She will try to discontinue Celebrex when pain resolves If she continues to have functional difficulties with ambulation requiring aids (walker and cane) after trochanteric bursa cortisone injection, we will need to repeat right hip x-ray and will consider PMR/physiatry consultation for intra- articular hip cortisone injection vs. surgery consultation Return to clinic in 3 months (4) Osteoarthritis of right hip: Comment: Causing limited external rotation of right hip. April 2024 moderate hip osteoarthritis on x-ray. Failed PT with improving range of motion. Code(s): M16.11 - Unilateral primary osteoarthritis, right hip Category: Medical Qualifiers: Osteoarthritis type: primary Qualified Code(s): M16.11 - Unilateral primary osteoarthritis, right hip Plan: Continue home exercise program Return to clinic in 3 months with re-evaluation of her hips symptoms next visit. Orders: Orders AMB Joint Injection/Aspiration Today M70.61 - Trochanteric bursitis, right hip Coding Level of Care Code Est Pt Level 4 (64051) Complex EM visit Add On G2211 Diagnoses PMR (polymyalgia rheumatica) M35.3 Paresthesia of hand, bilateral R20.2 Trochanteric bursitis, right hip M70.61 Primary osteoarthritis of right hip M16.11 Osteoarthritis type: primary CPT Codes Coding - 87431 Large joint: 30117 - Large joint ([id number])
--- OUTSIDE RECORDS SUMMARY | 2025-07-17 16:50 | XMS_ITS | Clinical Summary ---
Author Organization [address] [facility] Address [address] [place] [address] Phone Care Team Providers Care Membership Sales Advisor Name Role Phone Ken Parks MD Primary Care Provider [phone] Social History Tobacco Use Types Packs/Day Years [...] 2007 Zoster Vaccines (1 of 2) 2007 Depression Screening 10/24/2024 Colorectal Cancer Screening: Colonoscopy 02/08/2025 Falls Risk Assessment 02/08/2025 Hepatitis C Screening 02/08/2025 Medicare Annual Wellness Visit 02/08/2025 Osteoporosis Screening (Bone Density Screening) 02/08/2025 Social Influencers of Health Screening 02/08/2025 COVID-19 Vaccine ( - 2023-2 5 season) 2025 Influenza Vaccine (#1) 2025 RSV Immunization Adult [...] complete this topic Insurance [employer] MEDICARE Care Teams Membership Sales Advisor Relationship Specialty Start Date End Date Ken Parks MD [address] PCP - General Internal Medicine 06/14/25
--- OUTSIDE RECORDS SUMMARY | 2025-07-17 16:50 | XMS_ITS | Encounter Summary ---
Author Organization [facility] Address [address] [place] [address] Care Team Providers Care Vp Strategy Name Role Phone Ken Parks MD Primary Care Provider [phone] Encounter Details Date Type Department Care Team (Late st Contact Info) Description 02/07/2025 Lab Requisition [facility] [address] [place] [phone] Sil Byrnes MD [address] [phone] Acute vaginitis Social History Tobacco Use Types [...] vaginalis Negative Negative 02/08/2025 1:44 PM EDT [facility] Gardnerella vaginalis Positive(A) Negative 02/08/2025 1:44 PM EDT [facility] Rowan Species Positive(A) Negative 02/09/20 25 1:44 PM EDT [facility] Swab Vaginal structure / Unknown 02/07/2025 02/07/2025 6:18 PM EDT us Sil Byrnes MD LAB MICROBIOLOGY - GENER AL ORDERABLES Final Result [facility] [address] [place] [address], documented in this encounter Visit Diagnoses Diagnosis Acute vaginitis Unspecified vaginitis and vulvovaginitis documented in this encounter Care Teams Vp Strategy Relationship Specialty Start Date End Date Ken Parks MD [address] PCP - General Internal Medicine 06/14/25 documented as of this encounter
== END 2025-07-17 15:08 | disposition home or self-care (01) ==
LOC: HO.RHES 14:09
PROVIDERS: PCP Pediatrics; Visit Provider Internal Medicine Rheumatology
DX: M35.3 Polymyalgia rheumatica (principal); R20.2 Paresthesia of skin; M70.61 Trochanteric bursitis, right hip; M16.11 Unilateral primary osteoarthritis, right hip
CPT/HCPCS: 20610; 99213

== ENCOUNTER → 2025-07-17 14:08 | Outpatient (BNVA) | payer MEDICARE, SELFPAY | PROVIDERS: PCP Pediatrics; Visit Provider Internal Medicine Rheumatology | DX: M16.11 Unilateral primary osteoarthritis, right hip (principal); M70.61 Trochanteric bursitis, right hip; M35.3 Polymyalgia rheumatica; R20.2 Paresthesia of skin | CPT/HCPCS: 20610; 99212; J2003; J3301 ==

== ENCOUNTER 2025-10-04 14:23 | Outpatient (REF) | payer MEDICARE, SELFPAY ==
[2025-10-04 17:54] LABS: Alanine Aminotransferase 15 U/L (0-31); Aspartate Amino Transferase 21 U/L (5-31); Estimated Glomerular Filt Rate > 60
--- OUTSIDE RECORDS SUMMARY | 2025-10-04 19:38 | XMS_ITS | Clinical Summary ---
Author Organization [address] [facility] Address [address] [place] [address] Phone Care Team Providers Care Solution Lead Name Role Phone Ken Parks MD Primary Care Provider [phone] Social History Tobacco Use Types Packs/Day Years Used Date Smoking Tobacco: Never Assessed Comments Unknown Sex and Gender Information Value Date Recorded Sex Assigned at Not on file Legal Sex Female 7:51 PM EST Gender Identity Not on file Sexual Orientation Not on file Plan of Treatment Health Maintenance Due Date Last Done Comments Breast Cancer Screening 1955 Colorectal Cancer Screening: Colonoscopy 1955 DTaP,Tdap,and Td Vaccines (1 - Tdap) 1976 Pneumococcal Vaccine: 50+ Ye ars (1 of 1 - PCV) 2007 Zoster Vaccines (1 of 2) 2007 Depression Screening 10/24/2024 Falls Risk Assessment 02/08/2025 Hepatitis C Screening 02/08/2025 Medicare Annual Wellness Visit 02/08/2025 Osteoporosis Screening (Bone Density Screening) 02/08/2025 Social Influencers of Health Screening 02/08/2025 COVID-19 Vaccine ( - 2024-2 6 season) 2025 Influenza Vaccine (#1) 2025 RSV [...] topic Insurance [employer] MED[employer]ARE Care Teams Solution Lead Relationship Specialty Start Date End Date Ken Parks MD [address] PCP - General Internal Medicine 06/14/25
--- OUTSIDE RECORDS SUMMARY | 2025-10-04 19:38 | XMS_ITS | Data Portability ---
Author Organization [facility], Main Office Address [address] [facility] [address] [place] [id number] Care Team Providers Care General Distillery Worker Name Role Phone KEN GRIFFITHS Primary Care Provider [phone] ARIEL LOPEZ Divorce Mediator [phone] DESIREE KRAUS Vascular Surgeon DAREK SCOTT Urologist VIKASH ROJAS Hand Surgeon DANISH COLLAZO Machine Stitcher [phone] YONY NIELSEN Orthopedic Surgeon [phone] [facility] RHEUMATOLOGY Rheumatologi st [facility] Inspecting Engineer [phone] PERCY BILLINGSLEY Geometrician Assessment No assessment recorded. Plan of Treatment Reminders Order Date Submit Date Provider Last Modified By Organization Details Last Modified Time Details Appointments [id number] 2025 01:00P Yadira Griffiths MD Not available Not available Not available Lab CMP, serum or plasm a 2024 025 [facility], [address], [place], [address], 01/12/2025 18:05:32 urina lysis , compl ete 2024 025 [facility], [address], [place], [address], 01/12/2025 18:05:33 lipid panel , serum 2024 025 [facility], [address], [address], [place], [address], 01/12/2025 18:05:34 HbA1c (hemo globi n A1c), blood 2024 025 [facility], [address], [address], [place], [address], 01/12/2025 18:05:34 TSH, ultra -sens itive , [...] Go To The Location Of Their Choice, [id number] 04/07/2024 06:09:[address] refer ral - Patie nt to sched ule 2024 025 [email or web address] Ariel Engle MD, [address], [address], [place], [address], 12/13/2024 13:56:53 ophth almol ogist refer ral - for hydro xychl oroqu ine monit oring . 2024 025 [email or web address] [place] [facility], [address] , [address], [place], [address], 12/13/2024 13:56:[address]/di etiti an refer ral 2024 025 [email or web address] Not available 12/13/2024 13:56:53 physi quincy thera pist refer ral - for right hip osteo arthr itis 2023 024 [facility], [address] [facility], [place], [address], 01/15/2025 10:50:42 Procedures None recor ded. Surgeries None recor ded. Imaging LDCT, chest , for lung cance r scree moraima - *LDCT Lung Cance r Scree moraima Progr am Annua l Order * The patie nt does not have lung cance r or signs of lung cance r at this time. Patie nt has not had a chest CT in the last 12 month s. *HOLGER ED HARSHAL Mccord* I have discu ssed the benef its and risks of lung cance r scree moraima in compl iance with CMS share d harshal mccord guide lines inclu ding early detec tion, radia tion expos ure, false negat jayant rates , false posit jayant rates , over- diagn osis, incid ental findi ngs, impac t of comor bidit ies and the meño serrano or michelle posada s to under go diagn osis and treat ment if somet jihan nicole rning is found . I have revie wed with the patie nt the impor tance of absti nence if a forme r smoke r, and impor tance of smoki ng cessa tion if a curre nt smoke r. I have furni shed the patie nt with infor matio n and resou rces avail able to quit smoki ng if appro priat e. 2024 025 boo [facility], [address] [place], [address], 06/14/2025 13:30:44 LDCT, chest , for lung cance r scree moraima - *LDCT Lung Cance r Scree moraima Progr am Michelleua l Order * The patie nt does not have lung cance r or signs of lung cance r at this time. Patie nt has not had a chest CT in the last 12 month s. *HOLGER ED HARSHAL Mccord* I have discu ssed the benef its and risks of lung cance r scree moraima in compl iance with CMS share d harshal mccord guide lines inclu ding early detec tion, radia tion expos ure, false negat jayant rates , false posit jayant rates , over- diagn osis, incid ental findi ngs, impac t of comor bidit ies and the abili ty or willi ngnes s to under go diagn osis and treat ment if somet jihan nicole rning is found . I have revie wed with the patie nt the impor tance of absti nence if a forme r smoke r, and impor tance of smoki ng cessa tion if a curre nt smoke r. I have furni shed the patie nt with infor matio n and resou rces avail able to quit smoki ng if appro priat e. 2024 025 charlie [facility] Central Scheduling, [address] [facility], [place], [address], 07/01/2025 09:58:35 MAMMO , scree moraima, bilat eral - Perfo rm Diagn ostic Mammo gram and Breas t Ultra sound if neede d / Perfo rm Ultra sound Guide d Aspir ation and/o r Breas t Biops y if warra nted 2024 025 [facility], [address], [address], [place], [address], 12/13/2024 13:56:53 XR, hip, unila teral , 2 or 3 view - rule out right hip fract ure/a rthri tis 2023 024 [facility], [address], [place], [address], 04/27/2024 16:35:40 Medication Orders trama dol 50 mg table t 2024 025 [facility] #[id number], [address] [place], [address], 06/27/2025 05:02:04 atorv astat in 20 mg table t 2023 024 [facility], [address] [place] [address], [address], 07/19/2024 12:23:34 bupro pion HCl XL 150 mg 24 hr table t, exten ded relea se 2023 024 laurel [facility]arm[facility] #[id number], [address] [place], [address], 12/13/2024 13:45:27 ketoc onazo le 2 % shamp oo 2023 024 [facility] #[id number], [address] [place], [address], 04/12/2024 13:28:05 losar [place] 100 mg table t 2023 024 fang e [facility], [facility] [place], [address], 10/19/2024 15:40:49 Patient TargetsNo targets recorded. Patient Instructions Encounter Date Encounter Id Patient Instructions Last Modified By Organization Details Last Modified Time 01/09/2024 [id number] high cholesterol: care instructions awychowski Not available 01/09/2024 12:17:33 04/12/2024 [id number] polymyalgia rheumatica: care instructions awychowski Not available 04/12/2024 13:27:53 sacroiliac pain: exercises awychowski Not available 04/12/2024 13:27:53 high blood pressure: care instructions awychowski Not available 04/12/2024 13:27:53 learning about high blood pressure awychowski Not available 04/12/2024 13:27:53 07/19/2024 [id number] deciding about using medicines to quit smoking awychowski Not available 07/19/2024 12:23:32 Quitting Tobacco: Care Instructions awychowski Not available 07/19/2024 12:23:31 Learning About Benefits of Quitting Smoking awychowski Not available 07/19/2024 12:23:31 high cholesterol: care instructions awychowski Not available 07/19/2024 12:23:32 high blood pressure: care instructions awychowski Not available 07/19/2024 12:23:31 learning about high blood pressure awychowski Not available 07/19/2024 12:23:32 12/13/2024 [id number] high cholesterol: care instructions awychowski Not available [...] care instructions awychowski Not available 12/13/2024 13:53:01 Starting a Weight-Loss Plan: Care Instructions awychowski Not available 12/13/2024 13:53:02 Nutrition Referral and Weight Management Follow-up Information awychowski Not available 12/13/2024 13:53:02 06/13/2025 [id number] deciding about using medicines to quit smoking awychowski Not available 06/13/2025 14:03:27 Quitting Tobacco: Care Instructions awychowski Not available 06/13/2025 14:03:27 high cholesterol: care instructions awychowski Not available 06/13/2025 14:03:27 high blood pressure: care instructions awychowski Not available 06/13/2025 14:03:27 learning about high blood pressure awychowski Not available 06/13/2025 14:03:27 Reason for Referral Physical Therapist Referral for Osteoarthritis of right hip joint for right hip osteoarthritis Referring Physician: Family Rob Ray, Encounter Date: 07/19/2024 Divorce Mediator Referral for Sc reening for malignant neoplasm of cervix Patient to schedule Referring Physician: Family Rob Ray, Encounter Date: 12/13/2024 Cloth Cutting Machine Operator/dietitian Refer ral for Body mass index 30+ - obesity Referring Physician: Family Rob Ray, Encounter Date: 12/13/2024 Inspecting Engineer Referral for Adult health examination for hydroxychloroquine monitoring. Referring Physician: Family Rob Ray, Encounter Date: 12/13/2024 Results Created Date Observation Date Name Description Value Unit Range Abnormal Flag Note LastModifiedBy Organization Detail LastModifiedTime 12/30/19 24 12/30/2023 TSH TSH 1.67 uIU/m L (0.4-4 .2) Not Available [facility] (Centralized Electronic Ordering - All Locations) Patient Can Go To The Location Of Their Choice, 12/30/2023 11:40:56 12/30/1912/30/2023 HEMOG LOBIN A1C hemoglobin A1C 5.9 % [...] for devel oping diabe yash in the futur e. CAUTI ON: False ly low HbA1c resul ts [...] of Clini [facility] and Appli ed [facility]ea [facility] Educa tion Volum e 43, Suppl [...] The Location Of Their Choice, 12/30/2023 12:10:20 12/30/19 24 12/30/2023 COMPR EHENS JAYANT METAB OLIC PANL glucose [...] 12/30/1912/30/2023 COMPR EHENS JAYANT METAB OLIC PANL bilirubin,to [...] Location Of Their Choice, 12/30/2023 12:14:11 12/30/1912/30/2023 C-DONNA CTIVE PROTE IN C-reactive protein 0.7 mg/dL [...] The Location Of Their Choice, 12/30/2023 12:14:15 12/30/19 24 12/30/2023 LIPID PANEL non HDL cholesterol (calc) 165 mg/dL (<160) high Not Available [facility] (Centralized Electronic Ordering - All Locations) Patient Can Go To The Location Of Their Choice, 12/30/2023 12:14:15 12/30/19 24 12/30/2023 RHEUM ATOID FACTO R rheumatoid factor 11.0 IU/mL (<14) Not Available [facility] (Centralized Electronic Ordering - All Locations) Patient Can Go To The Location Of Their Choice, 12/30/2023 12:43:03 12/30/19 24 12/30/2023 LAB ONLY URINA LYSIS appear/color LIGHT CHESTERLLRenae W IDAI D Not Available [facility] (Centralized Electronic Ordering - All Locations) Patient Can Go To The Location Of Their Choice, 12/30/2023 13:29:05 12/30/1912/30/2023 LAB ONLY URINA LYSIS sp. gravity 1.016 (1.002 -1.030 ) Not Available [facility] (Centralized Electronic Ordering - All Locations) Patient Can Go To The Location Of Their Choice, 12/30/2023 13:29:05 12/30/19 24 12/30/2023 LAB ONLY URINA LYSIS urine pH 6.5 (5.0-8 .0) Not Available [facility] (Centralized Electronic Ordering - All Locations) Patient Can Go To The Location Of Their Choice, 12/30/2023 13:29:05 12/30/1912/30/2023 LAB ONLY URINA LYSIS urine albumin NEGATI VE (neg) Not Available [facility] (Centralized Electronic Ordering - All Locations) Patient Can Go To The Location Of Their Choice, 12/30/2023 13:29:05 12/30/1912/30/2023 LAB ONLY URINA LYSIS urine glucose NEGATI [...] 24 12/30/2023 LAB ONLY URINA LYSIS urine bilirubin NEGATI VE (neg) Not Available [facility] (Centralized Electronic Ordering - All Locations) Patient Can Go To The Location Of Their Choice, 12/30/2023 13:29:05 12/30/1912/30/2023 LAB ONLY URINA LYSIS urine hemoglobin TRACE (neg) abnormal Not Available [facility] (Central[facility] Ordering - All Locations) Patient Can Go To The Location Of Their Choice, 12/30/2023 13:29:05 12/30/1912/30/2023 LAB ONLY URINA LYSIS urine nitrite NEGATI VE (neg) Not Available [facility] (Centralized Electronic Ordering - All Locations) Patient Can Go To The Location Of Their Choice, 12/30/2023 13:29:05 12/30/1912/30/2023 LAB ONLY URINA LYSIS urine leukocyte 1+ (neg) abnormal Not Available [facility] (Centralized Electronic Ordering - All Locations) Patient Can Go To The Location Of Their Choice, 12/30/2023 13:29:05 12/30/1912/30/2023 LAB ONLY URINA LYSIS urobilinogen NORMAL mg/dL (norm) Not Available [facility] (Centralized Electronic Ordering - All Locations) Patient Can Go To The Location Of Their Choice, 12/30/2023 13:29:05 12/30/1912/30/2023 LAB ONLY URINA LYSIS urine WBCs 2 /hpf (0-5) Not Available [facility] (Centralized Electronic Ordering - All Locations) Patient Can Go To The Location Of Their Choice, 12/30/2023 13:29:05 12/30/1912/30/2023 LAB ONLY URINA LYSIS urine RBCs 1 /hpf (0-3) Not Available [facility] (Centralized Electronic Ordering - All Locations) Patient Can Go To The Location Of Their Choice, 12/30/2023 13:29:05 12/30/19 24 12/30/2023 LAB ONLY URINA LYSIS bacteria MODERA TE hpf (neg) abnormal Not Available [facility] (Centralized Electronic Ordering - All Locations) Patient Can Go To The Location Of Their Choice, [id number] 12/30/2023 13:29:05 12/30/19 24 12/30/2023 LAB ONLY URINA LYSIS mucus SLIGHT /lpf Not Available [facility] (Centralized Electronic Ordering - All Locations) Patient Can Go To The Location Of Their Choice, [id number] 12/30/2023 13:29:05 12/30/19 24 12/30/2023 LAB ONLY URINA LYSIS squamous epith 9 /hpf (0-8) high Not Available [facility] (Centralized Electronic Ordering - All Locations) Patient Can Go To The Location Of Their Choice, [id number] 12/30/2023 13:29:05 12/30/19 24 01/02/2024 CITRU LLINE PEPTI DE ANTIB RASHARD ccp antibody <1 Refer ence range : 0 to 19 Unit: units (NOTE ) Negat jayant <20 Weak posit jayant 20 - 39 Moder ate posit jayant 40 - 59 Stron g posit jayant >59 Test perfo rmed by [facility], [address], [place] [address] Not Available [facility] (Centralized Electronic Ordering - All Locations) Patient Can Go To The Location Of Their Choice, [id number] 01/02/2024 21:07:07 04/06/20 24 04/07/2024 COMP. METAB OLIC PANEL (14) glucose 101 mg/dL 70-99 above high normal Not Available [facility] ([facility]) [address] [place], [address], 04/07/2024 06:09:07 04/06/20 24 04/07/2024 COMP. METAB OLIC PANEL (14) BUN 13 mg/dL 8-27 Not Available [facility] ([facility]) [address] [place], [address], 04/07/2024 06:09:07 04/06/20 24 04/07/2024 COMP. METAB OLIC PANEL (14) creatinine 0.85 mg/dL 0.57-1 .00 Not Available [facility] ([facility]) [address] [place], [address], 04/07/2024 06:09:07 04/06/20 24 04/07/2024 COMP. METAB OLIC PANEL (14) eGFR 76 mL/mi n/1.7 3 >59 Not Available [facility] ([facility]) [address] [facility], [place], [address], 04/07/2024 06:09:07 04/06/20 24 04/07/2024 COMP. METAB OLIC PANEL (14) BUN/creatini ne ratio 15 12-28 Not Available [facility] ([facility]) [address] [facility], [place], [address], 04/07/2024 06:09:07 04/06/20 24 04/07/2024 COMP. METAB OLIC PANEL (14) sodium 142 mmol/ L 134-14 4 Not Available [facility] ([facility]) [address] [facility], [place], [address], 04/07/2024 06:09:07 04/06/20 24 04/07/2024 COMP. METAB OLIC PANEL (14) potassium 4.2 mmol/ L 3.5-5. 2 Not Available [facility] ([facility]) [address] [facility], [place], [address], 04/07/2024 06:09:07 04/06/20 24 04/07/2024 COMP. METAB OLIC PANEL (14) chloride 101 mmol/ L 96-106 Not Available [facility] ([facility]) [address] [facility], [place], [address], 04/07/2024 06:09:07 04/06/20 24 04/07/2024 COMP. METAB OLIC PANEL (14) carbon dioxide, total 25 mmol/ L 20-29 Not Available [facility] ([facility]) [address] [facility], [place], [address], 04/07/2024 06:09:07 04/06/20 24 04/07/2024 COMP. METAB OLIC PANEL (14) calcium 9.9 mg/dL 8.7-10 .3 Not Available [facility] ([facility]) [address] [facility], [address], 04/07/2024 06:09:07 04/06/20 24 04/07/2024 COMP. METAB OLIC PANEL (14) protein, total 6.6 g/dL 6.0-8. 5 Not Available [facility] ([facility]) [address] [place], [address], 04/07/2024 06:09:07 04/06/20 24 04/07/2024 COMP. METAB OLIC PANEL (14) albumin 4.4 g/dL 3.9-4. 9 Not Available [facility] ([facility]) [address] [place], [address], 04/07/2024 06:09:07 04/06/20 24 04/07/2024 COMP. METAB OLIC PANEL (14) globulin, total 2.2 g/dL 1.5-4. 5 Not Available [facility] ([facility]) [address] [facility], [address], 04/07/2024 06:09:07 04/06/20 24 04/07/2024 COMP. METAB OLIC PANEL (14) A/G ratio 2.0 Not Available [facility] ([facility]) [address] [place], [address], 04/07/2024 06:09:07 04/06/20 24 04/07/2024 COMP. METAB OLIC PANEL (14) bilirubin, total 0.2 mg/dL 0.0-1. 2 Not Available [facility] ([facility]) [address] [place], [address], 04/07/2024 06:09:07 04/06/20 24 04/07/2024 COMP. METAB OLIC PANEL (14) alkaline phosphatase 73 IU/L 44-121 Not Available [facility] ([facility]) [address] [place], [address], 04/07/2024 06:09:07 04/06/20 24 04/07/2024 COMP. METAB OLIC PANEL (14) AST (SGOT) 14 IU/L 0-40 Not Available [facility] ([facility]) [address] [place], [address], 04/07/2024 06:09:07 04/06/20 24 04/07/2024 COMP. METAB OLIC PANEL (14) ALT (SGPT) 11 IU/L 0-32 Not Available [facility] ([facility]) [address] [place], [address], 04/07/2024 06:09:07 04/06/20 24 04/07/2024 LIPID PANEL cholesterol, total 180 mg/dL 100-19 9 Not Available [facility] ([facility]) [address] [place], [address], 04/07/2024 06:09:08 04/06/20 24 04/07/2024 LIPID PANEL triglyceride s 100 mg/dL 0-149 Not Available [facility] ([facility]) [address] [place], [address], 04/07/2024 06:09:08 04/06/20 24 04/07/2024 LIPID PANEL HDL cholesterol 64 mg/dL >39 Not Available [facility] ([facility]) [address] [place], [address], 04/07/2024 06:09:08 04/06/20 24 04/07/2024 LIPID PANEL VLDL cholesterol quincy 18 mg/dL 5-40 Not Available [facility] ([facility]) [address] [place], [address], 04/07/2024 06:09:08 04/06/20 24 04/07/2024 LIPID PANEL LDL chol calc (nih) 98 mg/dL 0-99 Not Available [facility] ([facility]) [address] [place], [address], 04/07/2024 06:09:08 04/06/20 24 04/07/2024 LIPID PANEL LDL calc comment: 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 Not Available [facility] ([facility]) [address] [facility], [place], [address], 04/07/2024 06:09:08 04/06/20 24 04/06/2024 HEMOG LOBIN A1C hemoglobin A1C 6.2 % 4.8-5. 6 above high normal Predi abete s: 5.7 - 6.4 Diabe yash: >6.4 Glyce kia contr ol for adult s with diabe yash: <7.0 Not Available [facility] ([facility]) [address] [facility], [place], [address], 04/07/2024 06:09:09 07/27/20 24 07/28/2024 COMP. METAB OLIC PANEL (14) glucose 115 mg/dL 70-99 above high normal Not Available [facility] ([facility]) [address] [place], [address], 07/28/2024 06:10:29 07/27/20 24 07/28/2024 COMP. METAB OLIC PANEL (14) BUN 12 mg/dL 8-27 normal Not Available [facility] ([facility]) [address] [place], [address], 07/28/2024 06:10:29 07/27/20 24 07/28/2024 COMP. METAB OLIC PANEL (14) creatinine 0.79 mg/dL 0.57-1 .00 normal Not Available [facility] ([facility]) [address] [place], [address], 07/28/2024 06:10:29 07/27/20 24 07/28/2024 COMP. METAB OLIC PANEL (14) eGFR 82 mL/mi n/1.7 3 >59 normal Not Available [facility] ([facility]) [address] [place], [address], 07/28/2024 06:10:29 07/27/20 24 07/28/2024 COMP. METAB OLIC PANEL (14) BUN/creatini ne ratio 15 12-28 normal Not Available [facility] ([facility]) [address] [place], [address], 07/28/2024 06:10:29 07/27/20 24 07/28/2024 COMP. METAB OLIC PANEL (14) sodium 140 mmol/ L 134-14 4 normal Not Available [facility] ([facility]) [address] [place], [address], 07/28/2024 06:10:29 07/27/20 24 07/28/2024 COMP. METAB OLIC PANEL (14) potassium 3.8 mmol/ L 3.5-5. 2 normal Not Available [facility] ([facility]) [address] [place], [address], 07/28/2024 06:10:29 07/27/20 24 07/28/2024 COMP. METAB OLIC PANEL (14) chloride 99 mmol/ L 96-106 normal Not Available [facility] ([facility]) [address] [place], [address], 07/28/2024 06:10:29 07/27/20 24 07/28/2024 COMP. METAB OLIC PANEL (14) carbon dioxide, total 25 mmol/ L 20-29 normal Not Available [facility] ([facility]) [address] [place], [address], 07/28/2024 06:10:29 07/27/20 24 07/28/2024 COMP. METAB OLIC PANEL (14) calcium 9.6 mg/dL 8.7-10 .3 normal Not Available [facility] ([facility] [facility]) [address] [facility], [place], [address], 07/28/2024 06:10:29 07/27/20 24 07/28/2024 COMP. METAB OLIC PANEL (14) protein, total 7.0 g/dL 6.0-8. 5 normal Not Available [facility] ([facility]) [address] [place], [address], 07/28/2024 06:10:29 07/27/20 24 07/28/2024 COMP. METAB OLIC PANEL (14) albumin 4.5 g/dL 3.9-4. 9 normal Not Available [facility] ([facility]) [address] [place], [address], 07/28/2024 06:10:29 07/27/20 24 07/28/2024 COMP. METAB OLIC PANEL (14) globulin, total 2.5 g/dL 1.5-4. 5 Not Available [facility] ([facility]) [address] [facility], [place], [address], 07/28/2024 06:10:29 07/27/2007/28/2024 COMP. METAB OLIC PANEL (14) bilirubin, total 0.3 mg/dL 0.0-1. 2 normal Not Available [facility] ([facility]) [address] [place], [address], 07/28/2024 06:10:29 07/27/2007/28/2024 COMP. METAB OLIC PANEL (14) alkaline phosphatase 81 IU/L 44-121 normal Not Available [facility] ([facility]) [address] [place], [address], 07/28/2024 06:10:29 07/27/20 24 07/28/2024 COMP. METAB OLIC PANEL (14) AST (SGOT) 15 IU/L 0-40 normal Not Available [facility] ([facility]) [address] [facility], [place], [address], 07/28/2024 06:10:29 07/27/20 24 07/28/2024 COMP. METAB OLIC PANEL (14) ALT (SGPT) 10 IU/L 0-32 normal Not Available [facility] ([facility]) [address] [place], [address], 07/28/2024 06:10:29 07/27/20 24 07/28/2024 LDL JOSE STERO L (DIRE CT) LDL chol. (direct) 84 mg/dL 0-99 Not Available [facility] ([facility]) [address] [place], [address], 07/28/2024 06:10:30 07/27/20 24 07/28/2024 LDL JOSE STERO L (DIRE CT) LDL direct comment: 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 Not Available [facility] ([facility]) [address] [place], [address], 07/28/2024 06:10:30 07/27/20 24 07/27/2024 HEMOG LOBIN A1C hemoglobin A1C 6.1 % 4.8-5. 6 above high normal Predi abete s: 5.7 - 6.4 Diabe yash: >6.4 Glyce kia contr ol for adult s with diabe yash: <7.0 Not Available [facility] ([facility]) [address] [place], [address], 07/28/2024 06:10:31 01/12/20 25 01/11/2025 COMP. METAB OLIC PANEL (14) glucose 97 mg/dL 70-99 normal Not Available [facility] ([facility]) [address] [place], [address], 01/12/2025 18:05:32 01/12/20 25 01/11/2025 COMP. METAB OLIC PANEL (14) BUN 14 mg/dL 8-27 normal Not Available [facility] ([facility]) [address] [place], [address], 01/12/2025 18:05:32 01/12/20 25 01/11/2025 COMP. METAB OLIC PANEL (14) creatinine 0.81 mg/dL 0.57-1 .00 normal Not Available [facility] ([facility]) [address] [place], [address], 01/12/2025 18:05:32 01/12/20 25 01/11/2025 COMP. METAB OLIC PANEL (14) eGFR 80 mL/mi n/1.7 3 >59 normal Not Available [facility] ([facility]) [address] [place], [address], 01/12/2025 18:05:32 01/12/20 25 01/11/2025 COMP. METAB OLIC PANEL (14) BUN/creatini ne ratio 17 12-28 normal Not Available [facility] ([facility]) [address] [facility] [place], [address], 01/12/2025 18:05:32 01/12/20 25 01/11/2025 COMP. METAB OLIC PANEL (14) sodium 141 mmol/ L 134-14 4 normal Not Available [facility] ([facility]) [address] [place], [address], 01/12/2025 18:05:32 01/12/20 25 01/11/2025 COMP. METAB OLIC PANEL (14) potassium 3.9 mmol/ L 3.5-5. 2 normal Not Available [facility] ([facility]) [address] [place], [address], 01/12/2025 18:05:32 01/12/20 25 01/11/2025 COMP. METAB OLIC PANEL (14) chloride 103 mmol/ L 96-106 normal Not Available [facility] ([facility]) [address] [place], [address], 01/12/2025 18:05:32 01/12/20 25 01/11/2025 COMP. METAB OLIC PANEL (14) carbon dioxide, total 23 mmol/ L 20-29 normal Not Available [facility] ([facility]) [address] [place], [address], 01/12/2025 18:05:32 01/12/20 25 01/11/2025 COMP. METAB OLIC PANEL (14) calcium 9.7 mg/dL 8.7-10 .3 normal Not Available [facility] ([facility]) [address] [place], [address], 01/12/2025 18:05:32 01/12/20 25 01/11/2025 COMP. METAB OLIC PANEL (14) protein, total 7.0 g/dL 6.0-8. 5 normal Not Available [facility] ([facility]) [address] [place], [address], 01/12/2025 18:05:32 01/12/20 25 01/11/2025 COMP. METAB OLIC PANEL (14) albumin 4.6 g/dL 3.9-4. 9 normal Not Available [facility] ([facility]) [address] [place], [address], 01/12/2025 18:05:32 01/12/20 25 01/11/2025 COMP. METAB OLIC PANEL (14) globulin, total 2.4 g/dL 1.5-4. 5 Not Available [facility] ([facility]) [address] [place], [address], 01/12/2025 18:05:32 01/12/20 25 01/11/2025 COMP. METAB OLIC PANEL (14) bilirubin, total 0.4 mg/dL 0.0-1. 2 normal Not Available [facility] ([facility]) [address] [place], [address], 01/12/2025 18:05:32 01/12/20 25 01/11/2025 COMP. METAB OLIC PANEL (14) alkaline phosphatase 72 IU/L 44-121 normal Not Available [facility] ([facility]) [address] [place], [address], 01/12/2025 18:05:32 01/12/20 25 01/11/2025 COMP. METAB OLIC PANEL (14) AST (SGOT) 15 IU/L 0-40 normal Not Available [facility] ([facility]) [address] [place], [address], 01/12/2025 18:05:32 01/12/20 25 01/11/2025 COMP. METAB OLIC PANEL (14) ALT (SGPT) 11 IU/L 0-32 normal Not Available [facility] ([facility]) [address] [place], [address], 01/12/2025 18:05:32 01/12/20 25 01/11/2025 URINA LYSIS , COMPL ETE specific gravity 1.020 1.005- 1.030 normal Not Available [facility] ([facility]) [address] [place], [address], 01/12/2025 18:05:33 01/12/20 25 01/11/2025 URINA LYSIS , COMPL ETE pH 5.5 5.0-7. 5 normal Not Available [facility] ([facility]) [address] [place], [address], 01/12/2025 18:05:33 01/12/20 25 01/11/2025 URINA LYSIS , COMPL ETE urine-color YELLOW yellow Not Available [facility] ([facility]) [address] [place], [address], 01/12/2025 18:05:33 01/12/20 25 01/11/2025 URINA LYSIS , COMPL ETE appearance CLOUDY clear abnormal Not Available [facility] ([facility]) [address] [place], [address], 01/12/2025 18:05:33 01/12/20 25 01/11/2025 URINA LYSIS , COMPL ETE WBC esterase 1+ negati ve abnormal Not Available [facility] ([facility]) [address] [place], [address], 01/12/2025 18:05:33 01/12/20 25 01/11/2025 URINA LYSIS , COMPL ETE protein 1+ negati ve/tra ce abnormal Not Available [facility] ([facility]) [address] [place], [address], 01/12/2025 18:05:33 01/12/20 25 01/11/2025 URINA LYSIS , COMPL ETE glucose NEGATI VE negati ve Not Available [facility] ([facility]) [address] [place], [address], 01/12/2025 18:05:33 01/12/20 25 01/11/2025 URINA LYSIS , COMPL ETE ketones TRACE negati ve abnormal Not Available [facility] ([facility]) [address] [place], [address], 01/12/2025 18:05:33 01/12/20 25 01/11/2025 URINA LYSIS , COMPL ETE occult blood NEGATI VE negati ve Not Available [facility] ([facility]) [address] [place], [address], 01/12/2025 18:05:33 01/12/20 25 01/11/2025 URINA LYSIS , COMPL ETE bilirubin NEGATI VE negati ve Not Available [facility] ([facility]) [address] [place], [address], 01/12/2025 18:05:33 01/12/20 25 01/11/2025 URINA LYSIS , COMPL ETE urobilinogen ,semi-qn 0.2 mg/dL 0.2-1. 0 normal Not Available [facility] ([facility]) [address] [place], [address], 01/12/2025 18:05:33 01/12/20 25 01/11/2025 URINA LYSIS , COMPL ETE nitrite, urine NEGATI VE negati ve Not Available [facility] ([facility]) [address] [place], [address], 01/12/2025 18:05:33 01/12/20 25 01/11/2025 URINA LYSIS , COMPL ETE microscopic examination SEE BELOW: Micro scopi c was indic ated and was perfo rmed. 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 Not Available [facility] ([facility]) [address] [place], [address], 01/12/2025 18:05:33 01/12/20 25 01/12/2025 URINA LYSIS , COMPL ETE WBC 6-10 /hpf 0 - 5 abnormal Not Available [facility] ([facility]) [address] [place], [address], 01/12/2025 18:05:33 01/12/20 25 01/12/2025 URINA LYSIS , COMPL ETE RBC NONE SEEN /hpf 0 - 2 Not Available [facility] ([facility]) [address] [place], [address], 01/12/2025 18:05:33 01/12/20 25 01/12/2025 URINA LYSIS , COMPL ETE epithelial cells (non renal) >10 /hpf 0 - 10 abnormal Not Available [facility] ([facility]) [address] [place], [address], 01/12/2025 18:05:33 01/12/20 25 01/12/2025 URINA LYSIS , COMPL ETE epithelial cells (renal) 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 Not Available [facility] ([facility]) [address] [facility], [place], [address], 01/12/2025 18:05:33 01/12/20 25 01/12/2025 URINA LYSIS , COMPL ETE casts NONE SEEN /lpf none seen Not Available [facility] ([facility]) [address] [facility], [place], [address], 01/12/2025 18:05:33 01/12/20 25 01/12/2025 URINA LYSIS , COMPL ETE cast type 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 Not Available [facility] ([facility]) [address] [facility], [place], [address], 01/12/2025 18:05:33 01/12/20 25 01/12/2025 URINA LYSIS , COMPL ETE crystals 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 Not Available [facility] ([facility]) [address] [facility], [place], [address], 01/12/2025 18:05:33 01/12/20 25 01/12/2025 URINA LYSIS , COMPL ETE crystal type 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 Not Available [facility] ([facility]) [address] [facility], [place], [address], 01/12/2025 18:05:33 01/12/20 25 01/12/2025 URINA LYSIS , COMPL ETE mucus threads 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 Not Available [facility] ([facility]) [address] [facility], [place], [address], 01/12/2025 18:05:33 01/12/20 25 01/12/2025 URINA LYSIS , COMPL ETE bacteria MANY none seen/f ew abnormal Not Available [facility] ([facility]) [address] [facility], [place], [address], 01/12/2025 18:05:33 01/12/20 25 01/12/2025 URINA LYSIS , COMPL ETE yeast PRESEN T none seen abnormal Not Available [facility] ([facility]) [address] [place], [address], 01/12/2025 18:05:33 01/12/20 25 01/12/2025 URINA LYSIS , COMPL ETE trichomonas 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 Not Available [facility] ([facility]) [address] [facility], [place], [address], 01/12/2025 18:05:33 01/12/20 25 01/12/2025 URINA LYSIS , COMPL ETE comment 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 Not Available [facility] ([facility]) [address] [place], [address], 01/12/2025 18:05:33 01/12/20 25 01/11/2025 LIPID PANEL cholesterol, total 149 mg/dL 100-19 9 normal Not Available [facility] ([facility]) [address] [place], [address], 01/12/2025 18:05:34 01/12/20 25 01/11/2025 LIPID PANEL triglyceride s 70 mg/dL 0-149 normal Not Available [facility] ([facility]) [address] [place], [address], 01/12/2025 18:05:34 01/12/20 25 01/11/2025 LIPID PANEL HDL cholesterol 57 mg/dL >39 normal Not Available [facility] ([facility]) [address] [place], [address], 01/12/2025 18:05:34 01/12/20 25 01/11/2025 LIPID PANEL VLDL cholesterol quincy 14 mg/dL 5-40 Not Available [facility] ([facility]) [address] [place], [address], 01/12/2025 18:05:34 01/12/20 25 01/11/2025 LIPID PANEL LDL chol calc ([facility]) 78 mg/dL 0-99 Not Available [facility] ([facility]) [address] [place], [address], 01/12/2025 18:05:34 01/12/20 25 01/11/2025 LIPID PANEL LDL calc comment: 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 6 above high normal Predi abete s: 5.7 - 6.4 Diabe yash: >6.4 Glyce kia contr ol for adult s with diabe yash: <7.0 Not Available [facility] ([facility]) [address] [facility], [place], [address], 01/12/2025 18:05:34 01/12/20 25 01/11/2025 TSH RFX ON ABNOR MAL TO FREE T4 TSH 2.520 uIU/m L 0.450- 4.500 normal Not Available [facility] ([facility]) [address] [place], [address], 01/12/2025 18:05:35 01/19/20 25 01/18/2025 UA WITH CULTU RE REFLE X specific gravity 1.022 1.005- 1.030 normal Not Available [facility] ([facility]) [address] [place], [address], 01/20/2025 10:05:34 01/19/20 25 01/18/2025 UA WITH CULTU RE REFLE X pH 5.5 5.0-7. 5 normal Not Available [facility] ([facility]) [address] [place], [address], 01/20/2025 10:05:34 01/19/20 25 01/18/2025 UA WITH CULTU RE REFLE X urine-color YELLOW yellow Not Available [facility] ([facility]) [address] [facility], [place], [address], 01/20/2025 10:05:34 01/19/20 25 01/18/2025 UA WITH CULTU RE REFLE X appearance CLEAR clear Not Available [facility] ([facility]) [address] [facility], [place], [address], 01/20/2025 10:05:34 01/19/20 25 01/18/2025 UA WITH CULTU RE REFLE X WBC esterase 2+ negati ve abnormal Not Available [facility] ([facility]) [address] [facility], [place], [address], 01/20/2025 10:05:34 01/19/20 25 01/18/2025 UA WITH CULTU RE REFLE X protein 1+ negati ve/tra ce abnormal Not Available [facility] ([facility]) [address] [facility], [place], [address], 01/20/2025 10:05:34 01/19/20 25 01/18/2025 UA WITH CULTU RE REFLE X glucose NEGATI VE negati ve Not Available [facility] ([facility]) [address] [facility], [place], [address], 01/20/2025 10:05:34 01/19/20 25 01/18/2025 UA WITH CULTU RE REFLE X ketones TRACE negati ve abnormal Not Available [facility] ([facility]) [address] [facility], [place], [address], 01/20/2025 10:05:34 01/19/20 25 01/18/2025 UA WITH CULTU RE REFLE X occult blood NEGATI VE negati ve Not Available [facility] ([facility]) [address] [facility], [place], [address], 01/20/2025 10:05:34 01/19/20 25 01/18/2025 UA WITH CULTU RE REFLE X bilirubin NEGATI VE negati ve Not Available [facility] ([facility]) [address] [facility], [place], [address], 01/20/2025 10:05:34 01/19/20 25 01/18/2025 UA WITH CULTU RE REFLE X urobilinogen ,semi-qn 0.2 mg/dL 0.2-1. 0 normal Not Available [facility] ([facility]) [address] [facility], [place], [address], 01/20/2025 10:05:34 01/19/20 25 01/18/2025 UA WITH CULTU RE REFLE X nitrite, urine NEGATI VE negati ve Not Available [facility] ([facility]) [address] [facility], [place], [address], 01/20/2025 10:05:34 01/19/20 25 01/18/2025 UA WITH CULTU RE REFLE X microscopic examination SEE BELOW: Micro scopi c was indic ated and was perfo rmed. Not Available [facility] ([facility]) [address] [facility], [place], [address], 01/20/2025 10:05:34 01/19/20 25 01/19/2025 UA WITH CULTU RE REFLE X WBC 6-10 /hpf 0 - 5 abnormal Not Available [facility] ([facility]) [address] [facility], [place], [address], 01/20/2025 10:05:34 01/19/20 25 01/19/2025 UA WITH CULTU RE REFLE X RBC NONE SEEN /hpf 0 - 2 Not Available [facility] ([facility]) [address] [facility], [place], [address], 01/20/2025 10:05:34 01/19/20 25 01/19/2025 UA WITH CULTU RE REFLE X epithelial cells (non renal) 0-10 /hpf 0 - 10 Not Available [facility] ([facility]) [address], [place], [address], 01/20/2025 10:05:34 01/19/20 25 01/19/2025 UA WITH CULTU RE REFLE X epithelial cells (renal) 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 Not Available [facility] ([facility]) [address], [place], [address], 01/20/2025 10:05:34 01/19/20 25 01/19/2025 UA WITH CULTU RE REFLE X casts NONE SEEN /lpf none seen Not Available [facility] ([facility]) [address], [place], [address], 01/20/2025 10:05:34 01/19/20 25 01/19/2025 UA WITH CULTU RE REFLE X cast type 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 Not Available [facility] ([facility]) [address], [place], [address], 01/20/2025 10:05:34 01/19/20 25 01/19/2025 UA WITH CULTU RE REFLE X crystals 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 Not Available [facility] ([facility]) [address] [facility], [place], [address], 01/20/2025 10:05:34 01/19/20 25 01/19/2025 UA WITH CULTU RE REFLE X crystal type 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 Not Available [facility] ([facility]) [address] [facility], [place], [address], 01/20/2025 10:05:34 01/19/20 25 01/19/2025 UA WITH CULTU RE REFLE X mucus threads 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 Not Available [facility] ([facility]) [address] [facility], [place], [address], 01/20/2025 10:05:34 01/19/20 25 01/19/2025 UA WITH CULTU RE REFLE X bacteria MODERA TE none seen/f ew abnormal Not Available [facility] ([facility]) [address] [facility], [place], [address], 01/20/2025 10:05:34 01/19/20 25 01/19/2025 UA WITH CULTU RE REFLE X yeast 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 Not Available [facility] ([facility]) [address] [facility], [place], [address], 01/20/2025 10:05:34 01/19/20 25 01/19/2025 UA WITH CULTU RE REFLE X trichomonas 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 Not Available [facility] ([facility]) [address] [facility], [place], [address], 01/20/2025 10:05:34 01/19/20 25 01/20/2025 UA WITH CULTU RE REFLE X urine culture, routine FINAL REPORT Not Available [facility] ([facility]) [address] [place], [address], 01/20/2025 10:05:34 01/19/20 25 01/20/2025 UA WITH CULTU RE REFLE X result 1 COMMEN T Mixed uroge nital ashly Great er than 100,0 00 colon y formi ng units per mL Not Available [facility] ([facility]) [address] [place], [address], 01/20/2025 10:05:34 04/27/20 24 04/27/2024 XR, hip, unila teral [...] I agree with this report . WSN: [id number] Fortino castillo Physic lina: Ken Tamez Dictat ed By: El Davis MD Dictat ed Date/T brian: 4:32 pm Review ed By: Chris Mata MD Signed By: Chris Mata MD Signed Date/T brian: 4:37 pm Transc ribed By: DES Transc ribed Date/T brian: 4:30 pm Patien t Class: Outpat ient [facility] (Outpt Imaging) [address] [facility], [place], [address], 07/19/2024 12:13:15 07/27/20 24 07/27/2024 MAMMO , [...] Lay letter mailed to rashad sanders WSN: [id number] Orderi ng Physic lina: Ken Tamez Dictat ed By: Kenrick Hutson MD Dictat ed Date/T brian: 2:18 pm Review ed By: Kenrick Hutson MD Signed By: Kenrick Hutson MD Signed Date/T brian: 2:18 pm Transc ribed By: DES Transc riptio n Date/T brian: 2:17 pm Birads : Rashad sanders Class: Outpat ient [facility] (Outpt Imaging) [address], [place], [address], 12/13/2024 13:46:42 07/27/20 24 07/27/2024 MAMMO , scree moraima, bilat eral No observ ation record ed. [facility] [address], [place], [address], 12/13/2024 13:46:42 06/14/20 25 06/07/2025 elect romyo gram + nerve condu ction study No observ ation record ed. [facility] (Medical Records) [address] [place], [address], 06/17/2025 21:48:03 Result Notes Documentation Provider Name and Address Organization Details Recorded Time Xr, Hip, Unilateral, 2 Or 3 View : Hip Comp 2 Views Right INDICATION: Right hip pain. Rule out fracture arthritis COMPARISON: None. FINDINGS: No fracture or dislocation. Moderate chronic degenerative changes of the right hip with moderate joint space narrowing. Normal femoral head contour without evidence of avascular necrosis. Few tiny calcified phleboliths in the pelvis IMPRESSION: Moderate degenerative changes with no acute fracture or osseous abnormality. I have personally reviewed the images and I agree with this report. WSN: [id number] Ordering Physician: Ken Griffiths Dictated By: El Hernandez MD Dictated Date/Time: 04/27/24 4:32 pm Reviewed By: Aleja Mata MD Signed By: Aleja Mata MD Signed Date/Time: 04/27/24 4:37 pm Transcribed By: DES Transcribed Date/Time: 04/27/24 4:30 pm Patient Class: Outpatient Ken Griffiths MD [address], [address], [facility] [place] 07/19/2024 12:13:15 Mammo, Screening, Digital, Bilateral : PROCEDURE: MM Digital Mammo Screening INDICATION: Screening. No known palpable abnormalities. COMPARISON: Dating back to 11/17/2018 TECHNIQUE: Full-field digital CC and MLO 3D tomosynthesis images of both breasts were acquired. Computer-aided detection (CAD) was utilized in the interpretation of this study. DENSITY: There are scattered areas of fibroglandular density. FINDINGS: No suspicious masses, suspicious microcalcifications, or areas of architectural distortion are seen in either breast to suggest malignancy. IMPRESSION: No mammographic evidence of malignancy. RECOMMENDATION: Annual mammographic screening BI-RADS: 1 (Negative) Lay letter mailed to patient WSN: [id number] Ordering Physician: Ken Griffiths Dictated By: Kenrick Hutson MD Dictated Date/Time: 07/27/24 2:18 pm Reviewed By: Kenrick Hutson MD Signed By: Kenrick Hutson MD Signed Date/Time: 07/27/24 2:18 pm Transcribed By: DES [employer] Press Set Up Operator Date/Time: 07/27/24 2:17 pm Birads: Patient Class: Outpatient Ken Griffiths MD [address], [address], [facility] [place] 12/13/2024 13:46:42 Problems Name Problem SNOMED Code Status Onset Date Resolution Date Notes Provider Name and Address Organization Details Recorded Time Pain in left lower limb 583655687 Completed 09/02/2017 Ken Griffiths MD [address] [facility] [address], [place], [address] , [facility] 7 14:58:42 Impaired fasting glycemia 843216479 Active Not Available 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 268486727 Active Not Available [facility] 3 18:17:33 Inflamma tion of sacroili ac joint 33002766 Completed 04/24/2020 Ken Griffiths MD [address] [facility] [address], [place], [address] , [facility] 0 09:48:49 Screenin g for malignan t neoplasm of breast Completed 201106/03/2014 RECORDED 10/18/20 12 3:30PM BY SUSHILA LEYVA MA, ANNOTATI ON/DAVION DUM Ken Griffiths MD [address] [address], [place], [address] , [facility] 6 12:08:55 Influenz a vaccine needed [id number] 06 Completed 201106/03/2014 RECORDED 10/18/20 12 3:36PM BY SUSHILA LEYVA MA, OFFICE VISIT Ken Griffiths MD [address] [address], [place], [address] , [facility] 6 12:08:55 Screenin g for malignan t neoplasm of breast Completed 201105/07/2014 RECORDED 10/18/20 12 3:30PM BY SUSHILA LEYVA MA, ANNOTATI ON/ADDEN DUM Ken Griffiths MD [address] [address], [place], [address] , [facility] 6 12:08:55 Influenz a vaccine needed [id number] 06 Completed 201105/07/2014 RECORDED 10/18/20 12 3:36PM BY SUSHILA LEYVA MA, OFFICE VISIT Ken Griffiths MD [address], [place], [address] , [facility] 6 12:08:55 Erythema nodosum [id number] Completed 201206/03/2014 STORY: SECONDAR Y TO STREP THROAT; IMPRESSI ON: WITH RECENT SXS I DO NOT SUSPECT OTHER CAUSE OF EM BESIDES STREP THROAT EVEN THOUGH RAPID STREP NEG; RECORDED 12/06/19 13 8:49AM BY SUSHILA LEYVA MA, MORENO ON/DAVION Griffiths MD [address], [place], [address] , [facility] 6 12:08:54 Streptoc occal sore throat 91718858 Completed 201206/03/2014 RECORDED 12/06/19 13 8:49AM BY SUSHILA LEYVA MA, MORENO ON/DAVION Griffiths MD [address], [place], [address] , [facility] 6 12:08:54 Erythema nodosum [id number] Completed 201205/07/2014 STORY: SECONDAR Y TO STREP THROAT; IMPRESSI ON: WITH RECENT SXS I DO NOT SUSPECT OTHER CAUSE OF EM BESIDES STREP THROAT EVEN THOUGH RAPID STREP NEG; RECORDED 12/06/19 13 8:49AM BY SUSHILA LEYVA MA, MORENO ON/DAVION Griffiths MD [address], [place], [address] , [facility] 6 12:08:54 Streptoc occal sore throat 22615806 Completed 201205/07/2014 RECORDED 12/06/19 13 8:49AM BY SUSHILA LEYVA MA, MORENO ON/DAVION Griffiths MD [address], [place], [address] , [facility] 6 12:08:54 Edema [id number] Completed 201206/03/2014 IMPRESSI ON: HAD MILD PORTEINU EVER IN THE PAST. WILL REASSESS . LOW PRETEST PROB FOR DVT BUT IF D-DIMER ELEVATED WILL NEED U/S. IF LABS/YASH TING NORMAL, MAY NEED TO REDUCE CCB DOSE THIS MAY BE CONTRIBU TING WELL.; RECORDED 05/22/20 13 11:44AM BY SUSHILA LEYVA MA, MORENO SR/DAVION Griffiths MD [address], [place], [address] , [facility] 6 12:08:54 Proteinu ever [id number] Completed 201206/03/2014 IMPRESSI ON: MILD BUT PERSISTE NT ISSUE. WILL REASSESS AND IMAGE TO RULE OUT ANATOMIC ANOMALIE S.; RECORDED 05/22/20 13 11:44AM BY SUSHILA LEYVA MA, MORENO SR/DAVION Griffiths MD [address], [place], [address] , [facility] 6 12:08:55 Edema [id number] Completed 201205/07/2014 IMPRESSI ON: HAD MILD PORTEINU EVER IN THE PAST. WILL REASSESS . LOW PRETEST PROB FOR DVT BUT IF D-DIMER ELEVATED WILL NEED U/S. IF LABS/YASH TING NORMAL, MAY NEED TO REDUCE CCB DOSE THIS MAY BE CONTRIBU TING WELL.; RECORDED 05/22/20 13 11:44AM BY SUSHILA LEYVA MA, MORENO SR/DAVION Griffiths MD [address], [place], [address] , [facility] 6 12:08:54 Proteinu ever [id number] Completed 201205/07/2014 IMPRESSI ON: MILD BUT PERSISTE NT ISSUE. WILL REASSESS AND IMAGE TO RULE OUT ANATOMIC ANOMALIE S.; RECORDED 05/22/20 13 11:44AM BY SUSHILA LEYVA MA, MORENO SR/DAVION Griffiths MD [address] [facility] [address], [place], [address] , [facility] 6 12:08:55 Active or passive immuniza tion Completed 201206/03/2014 RECORDED 05/23/20 13 11:50AM BY KEN Garcia MD, OFFICE VISIT Ken Griffiths MD [address] [facility] [address], [place], [address] , [facility] 6 12:08:55 Active or passive immuniza tion Completed 201205/07/2014 RECORDED 05/23/20 13 11:50AM BY KEN Garcia MD, OFFICE VISIT Ken Griffiths MD [address] [facility] [address], [place], [address] , [facility] 6 12:08:55 Infectiv e otitis externa [id number] Completed 201206/03/2014 RECORDED 07/18/20 13 1:20PM BY SUSHILA LEYVA MA, [place] ON/DAVION Griffiths MD [address] [facility] [address], [place], [address] , [facility] 6 12:08:54 Adult health examinat ion Completed 201206/03/2014 IMPRESSI ON: WILL UPDATE IMMUNIZA TION STATUS AND SCREEN BASED ON RISK FACTORS. REGULAR DENTAL CARE AND SEATBELT USE ADVISED. DISTRACT ED DRIVING DISCUSSE D. COLONOSC OPY SCREENNG UTD. PT DUE FOR CERVICAL CANCER SCREENIN G AND CBE BUT HAS APPT WITH CUSTOM SEAMSTRESS NEXT MONTH.; RECORDED 07/18/20 13 1:20PM BY SUSHILA LEYVA MA, ANNOTATI ON/DAVION Griffiths MD [address] [facility] [address], [place], [address] , [facility] 6 12:08:55 Infectiv e otitis externa [id number] Completed 201205/07/2014 RECORDED 07/18/20 13 1:20PM BY SUSHILA LEYVA MA, MORENO SR/DAVION Griffiths MD [address] [address], [place], [address] , [facility] 6 12:08:54 Adult health examinat ion Completed 201205/07/2014 IMPRESSI ON: WILL UPDATE IMMUNIZA TION STATUS AND SCREEN BASED ON RISK FACTORS. REGULAR DENTAL CARE AND SEATBELT USE ADVISED. DISTRACT ED DRIVING DISCUSSE D. COLONOSC OPY SCREENNG UTD. PT DUE FOR CERVICAL CANCER SCREENIN G AND CBE BUT HAS APPT WITH CUSTOM SEAMSTRESS NEXT MONTH.; RECORDED 07/18/20 13 1:20PM BY SUSHILA LEYVA MA, MORENO SR/DAVION Griffiths MD [address] [address], [place], [address] , [facility] 6 12:08:55 Dermatop hytosis of the body Completed 201206/03/2014 IMPRESSI ON: SLOWLY RESPONDI NG. WILL TRY DIFFEREN T AGENT.; RECORDED 09/03/20 13 11:43AM BY SUSHILA LEYVA MA, ANNOTATI ON/DAVION Griffiths MD [address] [address], [place], [address] , [facility] 6 12:08:54 Dermatop hytosis of the body Completed 201205/07/2014 IMPRESSI ON: SLOWLY RESPONDI NG. WILL TRY DIFFEREN T AGENT.; RECORDED 09/03/20 13 11:43AM BY SUSHILA LEYVA MA, MORENO SR/DAVION Griffiths MD [address] [address], [place], [address] , [facility] 6 12:08:54 Contact dermatit is [id number] Completed 201306/03/2014 IMPRESSI ON: PERSISTA NT AND NOT RESPONDI NG TO TOPICAL ANTIFUNG AL THERAPY. WILL ASK DERM FOR OPINION. ; RECORDED 02/14/20 14 3:11PM BY SUSHILA LEYVA MA, MORENO ON/DAVION Griffiths MD [address] [facility] [address], [place], [address] , [facility] 6 12:08:54 Hypokale erasmo [id number] Completed 201306/03/2014 IMPRESSI ON: REASSESS OFF OF DIURETIC . IF PERSISTA NT WILL NEED FURTHER EVAL.; RECORDED 02/14/20 14 3:11PM BY SUSHILA LEYVA MA, MORENO ON/DAVION Griffiths MD [address] [facility] [address], [place], [address] , [facility] 6 12:08:54 Impaired fasting glycemia 344917485 Completed 201306/03/2014 IMPRESSI ON: INCREASE D PHYSICAL ACTIVITY , AND WEIGHT LOSS ADVISED. WILL FOLLOW.; RECORDED 02/14/20 14 3:11PM BY SUSHILA LEYVA MA, MORENO ON/DAVION Griffiths MD [address] [facility] [address], [place], [address] , [facility] 6 12:08:54 Pain in limb 76603731 Completed 201306/03/2014 IMPRESSI ON: ? NEUROGEN IC VS VASCULAR . HAS F/U WITH PMR AND PT. IF PERSISTA NT/WORSE WILL PURSUE VASCULAR EVALUATI ON.; RECORDED 02/14/20 14 3:11PM BY SUSHILA LEYVA MA, MORENO ON/DAVION Griffiths MD [address] [facility] [address], [place], [address] , [facility] 6 12:08:54 Fibromyo sitis [id number] Completed 201306/03/2014 IMPRESSI ON: MILD CK ELEVATIO N OF DOUBTFUL SIGNIFIC ANCE. WILL REASESS WITH OTHER LABS.; RECORDED 02/14/20 14 3:11PM BY SUSHILA LEYVA MA, MORENO ON/DAVION Griffiths MD [address] [facility] [address], [place], [address] , [facility] 6 12:08:54 Immuniza tion refused Completed 201306/03/2014 RECORDED 02/14/20 14 3:11PM BY SUSHILA LEYVA MA, MORENO ON/DAVION Griffiths MD [address] [facility] [address], [place], [address] , [facility] 6 12:08:55 Tobacco dependen ce syndrome 37177444 Completed 201305/07/2014 RECORDED 02/14/20 14 3:11PM BY SUSHILA LEYVA MA, MORENO ON/DAVION Griffiths MD [address] [facility] [address], [place], [address] , [facility] 7 11:51:11 Contact dermatit is [id number] Completed 201305/07/2014 IMPRESSI ON: PERSISTA NT AND NOT RESPONDI NG TO TOPICAL ANTIFUNG AL THERAPY. WILL ASK DERM FOR OPINION. ; RECORDED 02/14/20 14 3:11PM BY SUSHILA LEYVA MA, MORENO ON/DAVION Griffiths MD [address] [facility] [address], [place], [address] , [facility] 6 12:08:54 Essentia l hyperten luke 63921423 Completed 201305/07/2014 IMPRESSI ON: WELL CONTROLL ED OFF OF DIURETIC AND HYPOKALE ERASMO RESOLVED . WILL CONTINUE CURRENT REGIMEN. ; RECORDED 02/14/20 14 3:11PM BY SUSHILA LEYVA MA, MORENO ON/DAVION Griffiths MD [address] [facility] [address], [place], [address] , [facility] 7 14:58:13 Hypokale erasmo [id number] Completed 201305/07/2014 IMPRESSI ON: REASSESS OFF OF DIURETIC . IF PERSISTA NT WILL NEED FURTHER EVAL.; RECORDED 02/14/20 14 3:11PM BY SUSHILA LEYVA MA, MORENO ON/DAVION Griffiths MD [address] [address], [place], [address] , [facility] 6 12:08:54 Impaired fasting glycemia 992970226 Completed 201305/07/2014 IMPRESSI ON: INCREASE D PHYSICAL ACTIVITY , AND WEIGHT LOSS ADVISED. WILL FOLLOW.; RECORDED 02/14/20 14 3:11PM BY SUSHILA LEYVA MA, ANNOTATI ON/DAVION Griffiths MD [address] [address], [place], [address] , [facility] 6 12:08:54 Pain in limb 73508810 Completed 201305/07/2014 IMPRESSI ON: ? NEUROGEN IC VS VASCULAR . HAS F/U WITH PMR AND PT. IF PERSISTA NT/WORSE WILL PURSUE VASCULAR EVALUATI ON.; RECORDED 02/14/20 14 3:11PM BY SUSHILA LEYVA MA, ANNOTATI ON/DAVION Griffiths MD [address] [address], [place], [address] , [facility] 6 12:08:54 Fibromyo sitis 07540743 Completed 201305/07/2014 IMPRESSI ON: MILD CK ELEVATIO N OF DOUBTFUL SIGNIFIC ANCE. WILL REASESS WITH OTHER LABS.; RECORDED 02/14/20 14 3:11PM BY SUSHILA LEYVA MA, ANNOTATI ON/DAVION Griffiths MD [address] [address], [place], [address] , [facility] 6 12:08:54 Immuniza tion refused Completed 201305/07/2014 RECORDED 02/14/20 14 3:11PM BY SUSHILA LEYVA MA, ANNOTATI ON/DAVION Griffiths MD [address] [facility] [address], [place], [address] , [facility] 6 12:08:55 Blood in urine [id number] Completed 201305/29/2017 IMPRESSI ON: PRESENT PREVIOUS LY. WILL REASSESS AND REFER TO UROLOGY IF PERSISTA NT/WORSE .; RECORDED 02/20/20 14 2:07PM BY KEN Garcia MD, OFFICE VISIT Ken Griffiths MD [address] [facility] [address], [place], [address] , [facility] 7 14:19:11 Blood in urine [id number] Completed 201306/03/2014 IMPRESSI ON: PRESENT PREVIOUS LY. WILL REASSESS AND REFER TO UROLOGY IF PERSISTA NT/WORSE .; RECORDED 03/22/20 14 10:34AM BY SUSHILA LEYVA MA, ANNOTATI ON/ADDEDNA Griffiths MD [address] [facility] [address], [place], [address] , [facility] 7 14:19:11 Acute upper respirat ory infectio n [id number] Completed 201305/20/2016 IMPRESSI ON: SUPPORTI VE, SYMPTOMA TIC TX ADVISED. CALL INB/WORS E OVER NEXT 5-7 DAYS PT DOES HAVE HX OF TOBACCO USE.; RECORDED 03/22/20 14 11:05AM BY KEN Garcia MD, OFFICE VISIT Ken Griffiths MD [address] [facility] [address], [place], [address] , [facility] 6 12:08:54 Tobacco dependen ce syndrome 82967322 Active 2013 Not Available [facility] 3 18:17:34 Pure hypercho lesterol emia 890459833 Active 2013 Not Available [facility] 3 18:17:33 Essentia l hyperten luke 01828779 Active 2013 Not Available [facility] 3 18:17:34 Hypothyr oidism 87659731 Active 2013 Not Available [facility] 3 18:17:34 Obesity 306476806 Completed 201308/26/2016 RECORDED 03/22/20 14 10:35AM BY SUSHILA LEYVA MA, OFFICE VISIT Ken Griffiths MD [address] [facility] [address], [place], [address] , [facility] 6 14:13:46 Obstruct jayant sleep apnea syndrome 57936409 Active 2013 Not Available [facility] 3 18:17:34 Pain of multiple joints 59562487 Active 2013 Not Available [facility] 3 18:17:33 Peripher al arterial occlusiv e disease 246480978 Active 2016 right femoral iliac/po p, left fem/pop Not Available [facility] 3 18:17:34 Body mass index 40+ - severely obese 971123161 Completed 201809/13/2019 Removal Reason: dx changed Aretha de jesus, [facility] 9 09:59:50 Morbid obesity 668558858 Active 2018 Not Available [facility] 3 18:17:33 Multiple nodules of lung 003227772 Active 2019 Not Available [facility] 3 18:17:34 Divertic ular disease 302721666 Active 2020 Not Available [facility] 3 18:17:34 Pain in left thumb 65058542880 35864 Active 2020 Not Available [facility] 3 18:17:33 Arthriti s of hand 783535970 Active 2021 Not Available [facility] 3 18:17:34 Internal hemorrho ids 31593533 Active 2021 Not Available [facility] 3 18:17:34 Calcific ation of coronary artery 421159228 Active 2021 Not Available [facility] 3 18:17:34 Pain of left shoulder joint 80273884639 948469 Active 2022 Not Available [facility] 3 18:17:33 Rupture of rotator cuff of left shoulder 63567207279 736483 Active 2022 Not Available [facility] 3 18:17:33 Arthriti s of acromioc lavicula r joint 592232579 Active 2022 Not Available [facility] 3 18:17:34 Prediabe yash 429331284 Active 2022 Not Available [facility] 3 18:17:34 Cervical arthriti s 037715921 Active 2022 Not Available [facility] 3 18:17:34 Polymyal rico rheumati ca 64760766 Active 2023 Ken Griffiths MD [address] [address], [place], [address] , [facility] 4 10:30:50 Pain of right hip joint 43633631860 9102 Active 2023 Ken Griffiths MD [address] [address], [place], [address] , [facility] 4 13:24:01 Osteoart hritis of right hip joint 90110267662 9107 Active 2023 Ken Griffiths MD [address] [address], [place], [address] , [facility] 4 21:34:03 Body mass index 30+ - obesity 879894744 Active 2024 Ken Griffiths MD [address] [address], [place], [address] , [facility] 5 13:40:01 Lichen sclerosu s 314323337 Active 2024 Ken Griffiths MD [address] [address], [place], [address] , [facility] 5 07:54:22 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 Procedures Surgical History Date Name Laterality Status Provider Name and Address Organization Details Recorded Time 07/27/20 24 Most Recent Mammogram completed Carol Calloway [facility] 07/27/2024 14:22:28 09/26/20 23 Chronic Pain Assessment completed Rupal Sorensen MA [facility] 09/26/2023 12:55:00 04/01/20 23 Mammogram Screening completed Gladys todd MA [facility] 08/15/2023 16:01:40 12/16/19 22 Date of Last Colonoscopy completed Ana Rivera [facility] 12/18/2021 15:25:52 12/16/19 22 colonoscopy completed Ken Griffiths MD [address], [place], [address], [facility] 12/16/2021 10:42:52 11/17/19 19 Most Recent Bone Density completed Sushila Leyva MA [facility] 04/24/2020 09:08:33 11/17/19 19 Dxa bone density siobhan vrt fx completed Sushila Leyva MA [facility] 04/24/2020 09:08:52 05/08/20 18 Date of Last Pap Smear completed Ana Rivera [facility] 05/18/2018 08:57:39 01/16/[address] [facility] [place] 06/26/2014 13:13:55 06/22/[address] [facility] [place] 06/26/2014 13:13:55 Appendectomy completed Ken Griffiths MD [address] [facility] [address], [place], [address], [facility] 06/26/2014 14:11:57 Imaging Results None recorded. Procedure Notes None recorded. Medical Equipment None Reported. Allergies Allergen ID Allergen Name Allergen Category Reaction Reaction Severity Criticality Documentation Date Start Date Code Code System Note Provider Name and Address Organization Details Recorded Time 4742 Zestril medicatio n angioedem a moderate Not available 05/07/20142013 2 RxNorm Ken Griffiths MD [address] [facility] [address], [place], [address], [facility] 7 11:52:02 Medications Name Sig Start Date Stop Date Status Note LastModified by Organization Details LastModified Time losartan 50 mg tablet TAKE 1 TABLET DAILY 07/19 completed Not Available Not Available Not Available celecoxib 200 mg capsule TAKE 1 CAPSULE ORALLY 2 TIMES A DAY TAKE WITH FOOD. REPLACE MELOXICA M. active Not Available Not Available No t Available amoxicill in 500 mg capsule active Not Available Not Available Not Available fluconazo le 100 mg tablet TAKE 1 TABLET BY MOUTH EVERY DAY 06/13 completed Not Available Not Available Not Available [...] tablet TAKE 1 TABLET TWICE A DAY active Not Available Not Available No t Available ketoconaz ole 2 % shampoo APPLY TO AFFECTED AREA,LAT HER,LEAV E ON X5 MINUTES, RINSE WITH WATER.US E ONCE DAILY X3 DAYS active Not Available Not Available No t Available atorvasta tin 10 mg tablet Take 1 tablet every day by oral route. 09/04 completed Not Available Not Available Not Available meloxicam 15 mg tablet TAKE 1 TABLET BY MOUTH EVERY DAY WITH FOOD 06/13 completed Not Available Not Available Not Available Synthroid 125 mcg tablet TAKE 1 TABLET DAILY 2024 active Not Available Not Available Not Avai lable prednison e 5 mg tablet Take 2 tablets by mouth daily for 1 week, then 1 tablet by mouth daily for 1 week, then 1 tablet every other day for 4 doses. 07/19 completed 07/19/24 DAMONL Randall REED Not Available Not Available Not Available clobetaso [...] completed Not Available Not Available Not Available metronida zole 500 mg tablet TAKE 1 TABLET BY MOUTH TWICE A DAY FOR 7 DAYS 06/13 completed Not Available Not Available Not Available chlorthal idone 25 mg tablet TAKE 1/2 TABLET DAILY 2024 active Not Available Not Available Not Avai lable aspirin 81 mg tablet,de layed release Take 1 tablet every day by oral route as directed for 90 days. 2024 active PT now uses [facility] and needs new script sent Not Available Not Available Not Available tramadol 50 mg tablet Take 1 tablet twice a day by oral route as needed for 7 days. 06/27 completed Not Available Not Available Not Available famotidin [...] 10 mg tablet TAKE 1 TABLET DAILY 2024 active Not Available Not Available Not Avai lable cephalexi n 500 mg capsule TAKE 1 CAPSULE BY MOUTH 4 TIMES PER DAY FOR 7 DAYS 06/13 completed Not Available Not Available Not Available clotrimaz ole-betam ethasone 1 %-0.05 % [...] completed Not Available Not Available Not Available clobetaso l 0.05 % topical ointment APPLY 1 GRAM TO AFFECTED AREA AT BEDTIME 06/13 completed Not Available Not Available Not Available lorazepam 1 mg tablet 08/26 completed Not Available Not Available Not Available hydroxych loroquine 200 mg tablet TAKE 1 TABLET BY MOUTH TWICE A DAY FOR 90 DAYS 06/13 completed Not Available Not Available Not Available ibuprofen 600 mg tablet TAKE 1 [...] ne propionat e 50 mcg/actua tion nasal spray,les pension [place] 2 sprays every day by intranas al [...] + D take 1 tab daily po 12/08 completed Not Available Not Available Not Available GaviLyte- G 236 gram-22.7 4 gram-6.74 gram-5.86 gram oral solution 10/12 completed Not Available Not Available Not Available Vitals Date Recorded Body height Body mass index (BMI) Body weight Heart rate Oxygen saturation Body temperature Systolic And Diastolic Provider Name and Address Organization Details Last Updated DateTime 5 165.1 cm 36.4 kg/m2 67115.7 3 g 81 /min 98 % 97.2 [degF] 135/75 mm[Hg] Rupal Sorensen MA [facility] 5 13:03:59 Date Recorded Body height Body mass index (BMI) Body weight Heart rate Oxygen saturation Body temperature Systolic And Diastolic Provider Name and Address Organization Details Last Updated DateTime 4 165.1 cm 36.4 kg/m2 53202.7 3 g 77 /min 99 % 97.3 [degF] 140/70 mm[Hg] Rupal Sorensen [facility] [place] 4 11:51:56 Date Recorded Body height Body mass index (BMI) Body weight Heart rate Oxygen saturation Body temperature Systolic And Diastolic Provider Name and Address Organization Details Last Updated DateTime 4 165.1 cm 36.9 kg/m2 394147. 51 g 79 /min 97 % 97.3 [degF] 155/75 mm[Hg] Virginia aggarwal [facility] 4 12:56:36 Date Recorded Body height Body mass index (BMI) Body weight Heart rate Oxygen saturation Body temperature Systolic And Diastolic Systolic And Diastolic Provider Name and Address Organization Details Last Updated DateTime 5 165.1 cm 35.1 kg/m2 79338.9 9 g 95 /min 98 % 97 [degF] 154/83 mm[Hg] 120/80 mm[Hg] Ritika Tony [facility] 5 13:38:18 Date Recorded Body height Body mass index (BMI) Body weight Heart rate Oxygen saturation Body temperature Systolic And Diastolic Provider Name and Address Organization Details Last Updated DateTime 4 165.1 cm 37.9 kg/m2 091094. 27 g 76 /min 97 % 97.2 [degF] 141/74 mm[Hg] [facility] 4 12:03:37 Social History Question Answer Notes LastModified by Organizat ion Details LastModified Time Tobacco Smoking Status Current Every Day Smoker Not Available [facility] 08/26/2020 03:36:44 Do You Have An Advance Directive? Yes HCP/ Dtr-Mami Reza Information not available 06/21/2022 Is Blood Transfusion Acceptable In An Emergency? Yes [id number] Information not available 08/26/2020 What Is Your Level Of Caffeine Consumption? Moderate Information not available 10/12/2021 How Much Tobacco Do You Chew? None [id number] Information not available 08/26/2020 What Type Of Diet Are You Following? REGULAR [id number] Information not available 08/26/2020 Which Illicit Or Recreational Drugs Have You Used? Marijuana Occ. Information not available 12/13/2024 Education 2 Year College Information not available 06/21/2022 Live Alone Or With Others? Alone Lives [...] Gathering In The Last 10 Days? No [email or web address] Information not available 06/08/2021 What Was The Date Of Your Most Recent Tobacco Screening? 12/13/2024 Information not available 12/13/2024 How Many Children Do You Have? 2 1 Son, 1 Dtr [id number] Information not available 08/26/2020 What Is Your Current Pack Years? 30ormorepack years Information not available 11/02/2022 Do You Use Protection During Sex? Always [id number] Information not available 08/26/2020 Do You Use Your Seat Belt Or Car Seat Routinely? No Information not available 10/12/2021 Seat Belts Used Routinely Yes Information not available 06/21/2022 Are You Sexually Active? No [id number] Information not available 08/26/2020 Smoke Alarm In Home Yes Information not available 06/21/2022 Do You Have Smoke And Carbon Monoxide Detectors In Your Home? Yes Information not available 10/12/2021 At What Age Did You Start Smoking Tobacco? 22 [id number] Information not available 08/26/2020 Are You Passively Exposed To Smoke? No Information not available 10/12/2021 How Much Tobacco Do You Smoke? 0.25 PPD Information not available 12/13/2024 Do You Use Sunscreen Routinely? No Information not available 10/12/2021 How Many Years Have You Smoked Tobacco? 47 Information not available 12/13/2024 Sex: Unknown Functional Status Question Answer Note LastModified by Organizat ion Details LastModified Time Do you use any illicit or recreational drugs? Yes Information not available 12/13/2024 Do you or have you ever used any other forms of tobacco or nicotine? No Information not available 06/21/2022 What is your level of alcohol consumption? None Information not available 12/13/2024 Do you or have you ever used smokeless tobacco? Never used smokeless tobacco [id number] Information not available 08/26/2020 Are you currently employed? No Information not available 10/12/2021 Are you able to walk independently without assistance or assistive devices? YESWOREST Information not available 06/21/2022 Are you able to care for yourself independently? Yes Information not available 10/12/2021 What is your occupation? Retired Information not available 10/12/2021 Do you or have you ever used e-cigarettes or vape? Never used electronic cigarettes Information not available 06/21/2022 What is your exercise level? None [id number] Information not available 08/26/2020 Mental Status None [...] available 2021 12:35:59 Medical History Condition Response Other N Gout N Kidney Stones N Blood Diseases N Hyperthyroidism N Breast Cancer N COPD N Depression N Hypothyroidism Y Lung Disease N Defects or Inherited Disease N Anesthesia Complications N Headaches/Migraines N Varicose Veins N Anxiety Disorder N Obesity Y Vision or Eye Problems N Arthritis N Head Injury/Concussion N Infertility N Polyps N Congenital Anomalies N Acid Reflux (GERD) N Cancer N Stroke N ADHD N Endometriosis N High Cholesterol Y Liver Disease N Fibromyalgia N Kidney Disease N Heart Problems N Ear or Hearing Problems N Hospitalizations N Thyroid Problems N GI Problems N Acne N Skin Problems N Eating Disorder N Anemia N Constipation N Bladder Problems N Mental Illness N Ovarian Cancer N Diabetes N Blood Transfusions N Seizures/Epilepsy N Tuberculosis N AIDS/HIV N Congestive Heart Failure (CHF) N Eczema N Diverticulitis N Abuse/Domestic Violence N Asthma N Allergies N Reflux/GERD N Hepatitis N Pulmonary Embolism N Hypertension Y Osteoporosis N Chicken Pox N Autism Spectrum Disorder (ASD) N Gynecological History Statement/Question Response Date of Last Pap Smear 05/08/2018 Most Recent Mammogram 07/27/2024 01/15/2014 Date of Last Colonoscopy 12/16/2021 Most Recent Bone Density 11/17/2018 06/22/2010 Obstetrics History GPAL:G 0 P 0 0 0 0 Immunizations Vaccine Type Date Status Note Provider Name and Address Organization Details Recorded Time COVID-19, mRNA, LNP-S, PF, 30 mcg/0.3 mL dose 021 completed Not Available [facility] 10/10/2023 18:17:34 COVID-19, mRNA, LNP-S, PF, 30 mcg/0.3 mL dose 021 completed Not Available [facility] 10/10/2023 18:17:34 Tdap 018 completed Not Available [facility] [facility] 10[facility]10[facility]23 18:17:34 Influenza, split virus, quadrivalent, PF 018 cancelled patient objection Not Available [facility] 11/10/2019 02:22:16 Tdap 008 completed Not Available [facility] 10/10/2023 18:17:34 pneumococcal polysaccharide PPV23 013 completed Not Available [facility] 10/10/2023 18:17:34 zoster recombinant 019 cancelled patient objection Not Available [facility] 11/10/2019 02:22:20 Past Encounters Encounter ID Performer Location Encounter Start Date Encounter Closed Date Diagnosis/Indication Diagnosis SNOMED-CT Code Diagnosis ICD10 Code Diagnosis IMO Codes Diagnosis Note [id number] [facility] [address] [facility] [place] [address] 09/11/2012 00:00:00 [id number] [employer] erce [address] [facility] [place] [address] 10/18/2012 00:00:00 [id number] [employer] erce [address] [facility] [place] [address] 10/23/2012 00:00:00 [id number] [employer] erce [address] [facility] [place] [address] 12/06/2012 00:00:00 [id number] auto[employer] erce [address] [facility] [place] [address] 04/05/2013 00:00:00 [id number] [employer] erce [address] [facility] [place] [address] 04/27/2013 00:00:00 [id number] [place], [place] [address] 05/23/2013 00:00:00 [id number] autoEComm yolise [address] [facility] [place], [place] [address] 07/19/2013 00:00:00 [id number] autoEComm yolise [address] [facility] [place], [place] [address] 09/03/2013 00:00:00 [id number] auto[employer] [facility]olise [address] [facility] [place], [place] [address] 02/13/2014 00:00:00 [id number] auto[employer] [facility]olise [address] [facility] [place], [place] [address] 03/22/2014 00:00:00 [id number] Ken Griffiths MD Main Office [address] [place] [address] [place], [place] [address] 06/26/2014 12:50:25 06/26/2014 14:18:10 Adult health examination [id number] Immunizati on status utd, will screen based on risk factors. Flu advised in the Fall. Regular dental and ophtho care advised as well as sunscrene abd seatbelt use. Distracted driving discussed. Cervical, breast and colon cancer screening are utd. Advance directives discussed and in place. Essential hypertension 91137088 Well controlled and regimen tolerated. Will continue current dosing. Hypothyroidism 51987958 Cl inically euthyroid. Will recheck labs before next appt. Obesity 350634889 Long ter m potential health consequenc es discussed. Healthy diet and exercise habits advised. Pt has already received a referral to wt management and is planning on following through. Tobacco de pendence syndrome 80540358 Pt remains precontemp lative despite explainati on and understand ing of potential correction health consequenc es. Pure hypercholesterolemia 391654899 Will follow closely babita in the context of other significan t CV risk factors. [id number] Ken Griffiths MD Main Office [address] [facility] [address] [place], [place] [address] 04/09/2016 09:09:10 04/09/2016 10:29:20 Essential hypertension 01138714 I10 Well controlled and regimen tolerated. Will continue current dosing. Hypothyroidism 66701814 E03.9 Overdue for labs. Tobacco de pendence syndrome 12882300 F17.290 Reviewed motivation s for smoking cessation. Advised about benefits of stopping smoking. Pt currently precontemp lative. Pure hypercholesterolemia 100767222 E78.0 Will reassess. Pain in le ft lower limb 175322146 M79.605 Chronic issue previously felt to have components of hip bursitis and lumbar spine disease. Will reinvigora te PMR referral and if CK still elevated will ask rheum for opinion as well. [id number] Ken Griffiths MD Main Office [address] [facility] [address] [place] [address] 05/20/2016 12:38:32 05/20/2016 13:16:39 Essential hypertension 68678784 I10 Hypothyroidism 91942416 E03.9 Will reassess with more appropriat e supplement ation/comp liance. Tobacco de pendence syndrome 64955233 F17.290 Reviewed motivation s for smoking cessation. Advised about benefits of stopping smoking. Pt currently precontemp lative. Impaired f asting glycemia 995298483 R73.01 Myositis 84354315 M60.9 Reasess in 6 months and consider neuro eval depending on if persistent and what her symptoms do. [id number] Ken Griffiths MD Main Office [address] [facility] [address] [place] [address] 08/26/2016 13:37:37 08/26/2016 14:41:39 Adult health examination 141548159 Z00.01 Immunizati on status utd, will screen based on risk factors. Flu declined. Regular dental and ophtho care advised as well as sunscreen and seat belt use. Distracted driving discussed. Cervical, breast and colon cancer screening are utd. Advance directives discussed and in place. Body mass index 40+ - severely obese 848279676 Z68.41 Hypothyroidism 88523913 E03.9 Clinically and biochemica lly euthyroid. Continue current dose. Essential hypertension 71840310 I10 Will add diuretic to try and get control to goal. Screening for malignant neoplasm of lung 037629103 Z12.2 Screening for malignant neoplasm of colon 429770585 Z12.11 Tobacco de pendence syndrome 12260731 F17.290 Reviewed motivation s for smoking cessation. Advised about benefits of stopping smoking. Pt currently precontemp lative. [id number] Ken Griffiths MD Main Office [address] [place] [address] 03/14/2017 14:40:26 03/14/2017 15:39:54 Essential hypertension 50835382 I10 Not at goal today. Reassess at f/u and if >140/90, add another med. Will arrange fasting lab at f/u. Chronic cough 69796255 R 05 Suspect that either allergies or GERD might be a player. Will address both and if better d/c one of the two treatments to see what was effective. Image given duration and tobacco use history. Lung cancer screening referral was provided last Fall. [id number] Ken Griffiths MD Main Office [address] [place] [address] 04/27/2017 11:09:59 04/27/2017 12:06:12 Essential hypertension 56302834 I10 Poor control. Will add ARB. Cough 98257199 R05 ? secondary to GERD vs allergies. Will d/c PPI and see if recurs. Obstructiv e sleep apnea syndrome 13619012 G47.33 Referral to sleep med offered but declined by pt. Understand s potential health consequenc es to untreated ILDA. [id number] Ken Griffiths MD Main Office [address] [place] [address] 05/27/2017 12:37:40 05/27/2017 13:18:20 Pure hypercholesterolemia 403494351 E78.00 Will follow closely babita in the context of other significan t CV risk factors. If PAD present will need statin. Essential hypertension 91020920 I10 Well controlled with addition of ARB. Will continue current regimen. Pain in le ft lower limb 538181722 M79.605 ?PAD. Refer for PVR and if abnormal consult vascular. Otherwise if normal will ask pt to f/u with PMR for possible neurogenic claudicati on. Myositis 60361356 M60.9 If persistent will refer to neuro as advised by rheum. [id number] Ken Griffiths MD Main Office [address] [place] [address] 09/02/2017 14:10:20 09/02/2017 15:21:58 Adult health examination 902972656 Z00.00 Immunizati on status utd, flu declined. Will screen based on risk factors. Regular dental and ophtho care advised as well as sunscreen and seat belt use. Distracted driving discussed. Breast and colon cancer screening are utd. Due for cervical cancer screening. Advance directives discussed and in place. Body mass index 40+ - severely obese 626498687 Z68.41 Impaired f asting glycemia 932399873 R73.01 Increased physical activity and wt loss advised. Will follow. Tobacco de pendence syndrome 30669699 F17.200 Pt remains precontemp lative despite explanatio n and understand ing of potential correction health consequenc es. Essential hypertension 15627153 I10 Well controlled with addition of ARB. Will continue current regimen. Pure hypercholesterolemia 251255769 E78.00 Well controlled and statin well tolerated. Continue current dose. Hypothyroidism 39376221 E03.9 Clinically and biochemica lly euthyroid. Continue current dose. Screening for malignant neoplasm of cervix 004980961 Z12.4 Dermatophy tosis of the body 644850265 B35.4 Call inb/worse. [id number] Ken Griffiths MD Main Office [address] [facility] [address] [facility] [place] [address] 12/22/2017 12:44:33 12/22/2017 13:21:29 Essential hypertension 36172782 I10 Well controlled with addition of ARB. Will continue current regimen. Pure hypercholesterolemia 050612052 E78.00 LDL not at goal. Will start statin and titrate to goal LDL <100. Cough 55215408 R05 ? secondary to GERD, call inb/worse after resuming PPI. Peripheral arterial occlusive disease 603747531 I73.9 Will work on risk factor control for now. Benefits of smoking cessation discussed. Needs to f/u wi vascular in 12-18 months. [id number] Ken Griffiths MD Main Office [address] [facility] [address] [facility] [place] [address] 03/23/2018 12:42:08 03/23/2018 13:21:25 Essential hypertension 84414676 I10 Well controlled with addition of ARB. Will continue current regimen. Pure hypercholesterolemia 367071909 E78.00 LDL not at goal. Will titrate statin to goal LDL <100. Seasonal a llergic rhinitis 059625701 J30.2 Suspect her symptoms are allergy related. Will start OTC meds and call inb/worse or if second sickening occurs. Impaired f asting glycemia 699629294 R73.01 Increased physical activity and wt loss advised. Will follow. [id number] Ken Griffiths MD Main Office [address] [facility] [address] [facility] [place], [place] [address] 09/04/2018 09:25:37 09/04/2018 10:44:36 Adult health examination 206838206 Z00.00 Immunizati on status utd, flu declined. Will screen based on risk factors. Regular dental and ophtho care advised as well as sunscreen and seat belt use. Distracted driving discussed. Breast, cervical and colon cancer screening are utd. Advance directives discussed and in place. 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 Screening for malignant neoplasm of breast 992861625 Z12.39 Menopause present 378516 006 Z78.0 WIll screen base don risk factors. Body mass index 40+ - severely obese 378986858 Z68.41 Impaired f asting glycemia 157152331 R73.01 Increased physical activity and wt loss advised. Will follow. Essential hypertension 68053356 I10 Well controlled , will continue current regimen. Pure hypercholesterolemia 846163260 E78.00 On low dose statin. Will titrate if LDL still >100. Hypothyroidism 51704589 E03.9 Clinically and biochemica lly euthyroid. Continue current dose. Myositis 29437507 M60.9 If persistent will refer to neuro as advised by rheum. Obstructiv e sleep apnea syndrome 33793844 G47.33 Referral to sleep med offered but declined by pt. Understand s potential health consequenc es to untreated ILDA. Peripheral arterial occlusive disease 679930415 I73.9 Will work on risk factor control for now. Benefits of smoking cessation discussed. Needs to f/u with vascular in 6 months. Lesion of skin of face 8596370900 06 L98.9 [id number] Ken Griffiths MD Main Office [address] [address] [place] [address] 03/05/2019 09:29:33 03/05/2019 10:28:54 Peripheral arterial occlusive disease 928764178 I73.9 Will work on risk factor control for now. Benefits of smoking cessation discussed. Needs to f/u with vascular in 6 months. Essential hypertension 37249645 I10 Not at goal today. Will titrate ARB dose and follow. Pure hypercholesterolemia 140201135 E78.00 On moderate dose statin, with goal LDL control. Continue current dose. 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 Will check u/s to rule out retention. Refer to urology if u/s abnl or symptoms persist/wo rsen. [id number] Ken Griffiths MD Main Office [address] [address] [place] [address] 04/10/2019 09:11:12 04/10/2019 09:51:38 Retention of urine 629301999 R33.9 Pt are chronic and tolerable. Will defer further evaluation to urology. Advised to call if symptoms change/wor sen in the meantime. Essential hypertension 05943078 I10 Well controlled on current ARB dose. Will continue. [id number] Ken Griffiths MD Main Office [address] [address] [place] [address] 09/07/2019 15:10:23 09/07/2019 16:34:54 Adult health examination 806666011 Z00.00 Immunizati on status utd, flu declined. Will screen based on risk factors. Shingrix advised via local pharmacy. Regular dental and ophtho care advised as well as sunscreen and seat belt use. Distracted driving discussed. Breast, cervical and colon cancer screening are utd. Advance directives discussed and in place. Peripheral arterial occlusive disease 612788450 I73.9 Will work on risk factor control for now. Benefits of smoking cessation discussed. Needs to f/u with vascular in 6 months. Varicella vaccination 68 653887 Z23 Essential hypertension 79782516 I10 Well controlled on current regimen. Will continue. Pure hypercholesterolemia 260944681 E78.00 On moderate dose statin, with goal LDL control. Continue current dose. Screening for malignant neoplasm of breast 661788653 Z12.39 Body mass index 40+ - severely obese 036945706 Z68.41 Impaired f asting glycemia 229485864 R73.01 Increased physical activity and wt loss advised. Will follow. Myositis 30766951 M60.9 If persistent will refer to neuro as advised by rheum. Obstructiv e sleep apnea syndrome 90951001 G47.33 Referral to sleep med offered but declined by pt. Understand s potential health consequenc es to untreated ILDA. Tobacco de pendence syndrome 07844729 F17.290 Pt remains precontemp lative despite explanatio n and understand ing of potential buttermaker helper health consequenc es. Screening for malignant neoplasm of colon 245612703 Z12.11 Due in January, advised to call for appt if outreach is not done by the office. Hypothyroidism 27261261 E03.9 Clinically and biochemica lly euthyroid. Continue current dose. Morbid obesity 699167029 E66.01 [id number] Ken Griffiths MD Main Office [address] [facility] [address] [place] [address] 04/24/2020 08:47:50 04/24/2020 09:57:16 Impaired fasting glycemia 814851173 R73.01 Increased physical activity and wt loss advised. Will follow. Essential hypertension 44454150 I10 Well controlled on current regimen. Will continue. Pure hypercholesterolemia 505593010 E78.01 On moderate dose statin, with goal LDL control. Continue current dose. Nicotine dependence 5629 4008 Z87.891 LDCT Lung Cancer Screening Program Annual Order Katie 5748777 R82.81 Will check clean catch, suspect that her intertrigo might have contribute d to the contaminat ed sample. Candidal intertrigo 2661 44772 B37.2 [id number] Lexie wu MD Main Office [address] [facility] [address] [place] [address] 06/08/2021 10:38:09 06/08/2021 11:50:00 Impaired fasting glycemia 079091809 R73.01 Advise to increase physical activity and continued wt loss advised. Will follow, hgba1c stable at 5.8,pt has lost some wt, eating better Essential hypertension 34243597 I10 Well controlled on current regimen. Will continue. Pure hypercholesterolemia 848422967 E78.01 On moderate dose statin, due for labs Nicotine dependence 5629 4008 Z87.891 LDCT Lung Cancer Screening Program Annual Order Morbid obesity 928254865 E66.01 pt is losing wt, continue with better eating and keeping active. Screening for malignant neoplasm of colon 777857297 Z12.11 due for colon screening Screening for malignant neoplasm of cervix 746215327 Z12.4 Screening for malignant neoplasm of breast 992995905 Z12.39 Tendinitis of left shoulder 7367482852 116210 M75.92 declines PT for now, will do ROM, if tingling into hand persists will to [facility] [id number] Ken Griffiths MD Main Office [address] [facility] [address] [place] [address] 10/12/2021 14:11:24 10/12/2021 15:11:45 Adult health examination 056731790 Z00.00 Immunizati on status utd, flu declined. Will screen based on risk factors. Shingrix advised via local pharmacy. Regular dental and ophtho care advised as well as sunscreen and seat belt use. Distracted driving discussed. Breast, cervical and colon cancer screening are utd. Advance directives discussed and in place. Varicella vaccination 68 947160 Z23 Hypothyroidism 64558261 E03.9 Clinically and biochemica lly euthyroid. Continue current dose. Essential hypertension 06998539 I10 Well controlled on current regimen. Will continue. Pure hypercholesterolemia 691350550 E78.01 On moderate dose statin, with goal LDL control. Continue current dose. Tobacco de pendence syndrome 06524448 F17.290 Pt remains precontemp lative despite explanatio n and understand ing of potential buttermaker helper health consequenc es. 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 Screening for malignant neoplasm of breast 318406535 Z12.39 Screening for malignant neoplasm of colon 668704719 Z12.11 Scheduled 12/[address] Collazo Peripheral arterial occlusive disease 380405179 I73.9 Will work on risk factor control for now. Benefits of smoking cessation discussed. Impaired f asting glycemia 430364293 R73.01 Has lost weight and doing fairly well with diet/lifes tyle changes. Will monitor. Albuminuria 409584287 R8 0.9 Multiple n odules of lung 469323972 R91.8 Lung cancer screening utd, due in Jun 2022. Pain in left thumb 71461 30881 049245 M79.645 ? arthritis vs tendintiti s. Will image and ask ortho to help with mgmt regardless . Myositis 87878470 M60.9 If persistent will refer to neuro as advised by rheum. [id number] Ken Griffiths MD Main Office [address] [facility] [address] [place] [address] 02/16/2022 12:45:30 02/16/2022 13:25:15 Essential hypertension 57103895 I10 Well controlled on current regimen. Will continue. Hypothyroidism 87384129 E03.9 Clinically and biochemica lly euthyroid. Continue current dose. Pure hypercholesterolemia 669947109 E78.01 On moderate dose statin, with goal LDL control. Continue current dose. Osteoarthr itis of joint of bilateral hands 2113845722 71653 M19.041 Not interested in injections . Discussed CBD, glucosamin e/chondroi tin and turmeric and more holisitic options to try. Will call if interested in trying different NSAID options. [id number] Ken Griffiths MD Main Office [address] [facility] [address] [place] [address] 06/21/2022 12:35:37 06/21/2022 13:30:58 Essential hypertension 42974531 I10 Well controlled on current regimen. Will continue. Pure hypercholesterolemia 408255385 E78.01 On moderate dose statin, with goal LDL control. Continue current dose. Impaired f asting glycemia 627694933 R73.01 Has lost weight and doing fairly well with diet/lifes tyle changes. Will monitor. Tobacco de pendence syndrome 81619766 F17.290 Pt is now contemplat jayant willing to try buproprion . Advised to call with any problems after starting. Will titrate dose as tolerated. Nicotine dependence 5629 4008 Z87.891 LDCT Lung Cancer Screening Program Annual Order Peripheral arterial occlusive disease 286140364 I73.9 Will work on risk factor control for now. Benefits of smoking cessation discussed. , and pt is willing to try. Will monitor symptoms with this effort and refer back to vascular if symptoms are persistent /worse. [id number] Ken Griffiths MD Main Office [address] [facility] [address] [facility] [place] [address] 11/02/2022 13:39:29 11/02/2022 14:54:35 Adult health examination 682590778 Z00.00 Immunizati on status utd, flu declined. Will screen based on risk factors. Shingrix and bivalent COVID 19 booster advised via local pharmacy. Regular dental and ophtho care advised as well as sunscreen and seat belt use. Distracted driving discussed. Breast, cervical and colon cancer screening are utd. Advance directives discussed and in place. Screening for malignant neoplasm of breast 626347856 Z12.39 Shoulder pain limiting her ability to go for mammo. Screening for malignant neoplasm of cervix 654597739 Z12.4 Pt is in process of scheduling blast furnace helper appt. Pain of le ft shoulder joint 0985897983 0792104 M25.512 Suspect frozen shoulder. Will ask ortho to help with eval. Pt declines PT until ortho assesses her. Essential hypertension 65454318 I10 Well controlled on current regimen. Will continue. Hypothyroidism 61155368 E03.9 Clinically and biochemica lly euthyroid. Continue current dose. Body mass index 30+ - obesity 918019310 E66.01 Z68.36 Peripheral arterial occlusive disease 496080517 I73.9 Will work on risk factor control for now. Benefits of smoking cessation discussed. , and pt is willing to try. Will monitor symptoms with this effort and refer back to vascular if symptoms are persistent /worse. Varicella vaccination 68 027527 Z23 Tobacco de pendence syndrome 97379681 F17.290 Pt is now contemplat jayant willing to try buproprion . Advised to call with any problems after starting. Will titrate dose as tolerated. Pure hypercholesterolemia 874655184 E78.01 On moderate dose statin, with goal LDL control. Continue current dose. Obstructiv e sleep apnea syndrome 84799779 G47.33 Referral to sleep med offered but declined by pt. Understand s potential health consequenc es to untreated ILDA. Candidal intertrigo 2661 32430 B37.2 Impaired f asting glycemia 505771695 R73.01 Has lost weight and doing fairly well with diet/lifes tyle changes. Will monitor. [id number] Ken Griffiths MD Main Office [address] [facility] [address] [place] [address] 05/10/2023 13:18:34 05/10/2023 14:18:43 Essential hypertension 08181617 I10 Well controlled on current regimen. Will continue. Hypothyroidism 78882850 E03.9 Clinically euthyroid, has labs pending. Will adjust dosing as result indicates. Peripheral arterial occlusive disease 674713431 I73.9 Contiunes to struggle with risk factor control for now. Benefits of smoking cessation discussed. , and pt is willing to try. Will refer back to vascular if symptoms are persistent /worse. [id number] Greg Greene MD Main Office [address] [facility] [address] [place] [address] 08/15/2023 15:38:20 08/15/2023 16:55:20 Carpal tunnel syndrome 40990827 G56.03 Paresthesi a of bilateral hands 078131175 R20.2 [id number] Ken Griffiths MD Main Office [address] [facility] [address] [place] [address] 09/12/2023 13:24:31 09/12/2023 14:27:50 Pain of multiple joints 81767335 M25.50 Need to determine whether her symptoms are all related to osteoarthr itis and not reactive/i nflammator y arthropath y. If labs abnl would consider a new rheum eval. Muscle pain 90508788 M79 .10 stop atorvastat in in case this is an issue. [id number] Ken Griffiths MD Main Office [address] [facility] [address] [place] [address] 09/26/2023 12:42:46 09/26/2023 13:13:54 Cervical arthritis 854861469 M46.92 Arthritis of acromioclavicular joint 290467931 M13.812 Pain of le ft shoulder joint 6711369007 4549070 M25.512 Has rotator cuf disease and OA. Very reluctant to have surgery at this time. Will refer back to Dr. Gonzalez should her symptoms warrant and stance on surgery change. 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 Will ask rheum for input. Suspect a possible combinatio n of OA and inflammato ry arthritis. Will ask rheum for guidance and to help make sure additional testing is not warranted. [id number] Ken Griffiths MD Main Office [address] [facility] [address] [facility] [place], [place] [address] 12/08/2023 13:57:54 12/08/2023 15:26:22 Adult health examination 081479263 Z00.00 Flu vaccine declined. PCV20, RSV, Shngrix and COVID booster advised via local pharmacy. Will screen based on risk factors. Regular dental and ophtho care advised as well as sunscreen and seat belt use. Distracted driving discussed. Breast, cervical and colon cancer screening are utd. Advance directives discussed and in place. Screening for malignant neoplasm of cervix 421004563 Z12.4 Pt is in process of scheduling blast furnace helper appt. Screening for malignant neoplasm of breast 852674676 Z12.39 Due for f/u in March. Pain of mu ltiple joints 44595115 M25.50 Only responsive to steroids, needs rheum eval. Will see if specialist s at [facility] can accomodate sooner than [facility]. Synovitis 046383823 M65. 9 Will provide low dose steroid to help improve function while waiting for rheumatolo gy consultati on. Administra tion of pneumococcal vaccine 95089108 Z23 Varicella vaccination 68 085505 Z23 Essential hypertension 27458056 I10 Well controlled on current regimen. Will continue. Hypothyroidism 69369099 E03.9 Clinically and biochemica lly euthyroid. Continue current dose. Body mass index 30+ - obesity 557388781 E66.01 Z68.35 Peripheral arterial occlusive disease 158873008 I73.9 Based on abnl PVR in 2017, but recent vascular eval (08/2023) was basically normal. Follow up left PRN. I will continue to try and work on risk factor control for now. Benefits of smoking cessation discussed. Tobacco de pendence syndrome 01871114 F17.290 Pt is precontemp lative again. Understand s/accepts potential consequenc es and to call if treatment is desired. LDCT/lung cancer screening is current. Pure hypercholesterolemia 614673528 E78.01 On moderate dose statin, with goal LDL control. Continue current dose. Obstructiv e sleep apnea syndrome 55077068 G47.33 Referral to sleep med offered but declined by pt. Understand s potential health consequenc es to untreated ILDA. Impaired f asting glycemia 200142272 R73.01 Has lost weight and doing fairly well with diet/lifes tyle changes. Will monitor. Administra tion of viral vaccine 53937902 Z29.11 Inflammato ry polyarthropathy 407329246 M06.4 Pt unable to get into arthritis tx center until February. Will try [facility] gy [id number] Ken Griffiths MD Main Office [address] [facility] [address] [facility] [place] [address] 01/09/2024 11:25:34 01/09/2024 12:21:01 Prediabetes 013124392 R73.03 Will monitor babita with steroid therpay she has been receiving. Inflammato ry polyarthropathy 456833032 M06.4 Pt unable to get into arthritis tx center until April. Has rheum appt on 01/26 in [place]. Excellent relief with steroid. Need help with diagnosis and guidance regarding correction therapy. Tobacco de pendence syndrome 82405030 F17.290 Pt is precontemp lative again. Understand s/accepts potential consequenc es and to call if treatment is desired. LDCT/lung cancer screening is current. Pure hypercholesterolemia 843500169 E78.01 Will resume statin based on CVD [id number] Ken Griffiths MD Main Office [address] [facility] [address] [place] [address] 04/12/2024 12:45:33 04/12/2024 13:31:57 Essential hypertension 94364771 I10 Not well controlled , will titrate ARB dose in context of steroid therapy and weight gain. Polymyalgi a rheumatica 42545094 M35.3 Formally diagnosed by rheum, tapering off of prednisone Pain of ri ght hip joint 9418204575 44722 M25.551 ? hip pathology vs SIJ. If xray neg will try home pt and call for formal PT if desired. Skin hypopigmented 73389 000 L81.5 ?tinea vs vitiligo, hiren if ketoconazo le helps. Prediabetes 179593846 R7 3.03 Will monitor babita with steroid therapy she has been receiving. Tobacco de pendence syndrome 12036294 F17.290 Pt is more contemplat jayant. Understand s/accepts potential consequenc es and to call if treatment is desired. Would liek to revisit buproprion . [id number] Ken Griffiths MD Main Office [address] [facility] [address] [facility] [place] [address] 07/19/2024 11:24:36 07/19/2024 12:34:19 Essential hypertension 10509519 I10 Fair control, will titrate diuretic dose if >140/90 at f/u. Hypercholesterolemia 136 49068 E78.00 Will resume statin as previous myalgias were more likely from her PMR diagnosis. Influenza vaccination declined 050454949 Z28.21 Tobacco de pendence syndrome 69994880 F17.290 Pt is more contemplat jayant. Never started previous buproprion rx but is planning to now. Pure hypercholesterolemia 485934759 E78.01 Will reassess control back on statin. Prediabetes 320283965 R7 3.03 Will monitor babita with steroid therapy she has been receiving. Osteoarthr itis of right hip joint 0522050400 83784 M16.11 Would like to try PT, advised to let me know fi she changes her mind re: ortho consultati on. [id number] Ken Griffiths MD Main Office [address] [facility] [address] [place] [address] 12/13/2024 12:48:43 12/13/2024 13:56:52 Adult health examination 977388963 Z00.00 Flu vaccine declined. PCV20, RSV, Shingrix and COVID booster advised via local pharmacy. Will screen based on risk factors. Regular dental and ophtho care advised as well as sunscreen and seat belt use. Distracted driving discussed. Breast, cervical and colon cancer screening are utd. Advance directives discussed and in place. Screening for malignant neoplasm of breast 882417641 Z12.39 Due for f/u in July Influenza vaccination declined 985400939 Z28.21 Screening for malignant neoplasm of cervix 424360689 Z12.4 Pt is in process of scheduling blast furnace helper appt. Administra tion of pneumococcal vaccine 33922540 Z23 Varicella vaccination 68 602732 Z23 Essential hypertension 06967795 I10 Well controlled on current regimen. Will continue. Hypothyroidism 69607686 E03.9 Clinically and biochemica lly euthyroid. Continue current dose. Body mass index 30+ - obesity 910806283 E66.01 Z68.36 Peripheral arterial occlusive disease 877967344 I73.9 Based on abnl PVR in 2017, but recent vascular eval (08/2023) was basically normal. Follow up left PRN. I will continue to try and work on risk factor control for now. Benefits of smoking cessation discussed. Tobacco de pendence syndrome 54235931 F17.290 Pt is precontemp lative again, does not want to start buproprion with other medication s she was Understand s/accepts potential consequenc es and to call if treatment is desired. LDCT/lung cancer screening is due. Pure hypercholesterolemia 443944717 E78.01 On moderate dose statin, with goal LDL control. Continue current dose. Obstructiv e sleep apnea syndrome 00224298 G47.33 Referral to sleep med offered but declined by pt. Understand s potential health consequenc es to untreated ILDA. Impaired f asting glycemia 949751215 R73.01 Has lost weight and doing fairly well with diet/lifes tyle changes. Will monitor. Administra tion of viral vaccine 55785357 Z29.11 Polymyalgi a rheumatica 35322889 M35.3 Formally diagnosed by rheum, tapering off of prednisone Nicotine dependence 5629 4008 Z87.891 LDCT Lung Cancer Screening Program Annual Order, needs to contact [place] to see where her preferred location is. [id number] Ken Griffiths MD Main Office [address] [facility] [address] [facility] [place] [place] [address] 06/13/2025 13:30:13 06/13/2025 14:12:45 Osteoarthritis of right hip joint 7629842777 27157 M16.11 Undergoing PT, trying to stave off surgery. Will see if tramadol is helpful when NSAIDS aren't affording relief. Advised to let me know if she changes her mind re: ortho consultati on. Tobacco de pendence syndrome 72523861 F17.290 Has tapered to 2 pack/week. buproprion with other medication s she was Understand s/accepts potential consequenc es and to call if treatment is desired. LDCT/lung cancer screening is due. Essential hypertension 66613531 I10 Well controlled on current regimen. Will continue. Pure hypercholesterolemia 539558740 E78.01 On moderate dose statin, with goal LDL (78) control. Continue current dose. Nicotine dependence 5629 4008 Z87.891 LDCT Lung Cancer Screening Program Annual Order Administra tion of viral vaccine 99479839 Z29.11 Administra tion of pneumococcal vaccine 82799719 Z23 Health Concerns Section Related Observation LastModified by Organization Detai ls LastModified Time None Recorded Concern Status LastModified by Organization Details LastModified Time None Recorded Advance Directives Directive Y: HCP/ Dtr-Devora Reza Payers Insurance Date Sequence Insurance Name Policy Number Policy Mason Covered Member ID Mason Member ID Guarantor Name 10/26/2022 1 [place] [id number] Cari Prasad [id number] Cari Prasad 11/02/2022 1 [facility] [id number] Cari Prasad [id number] Cari Prasad 07/02/2025 1 [facility] (MEDICARE REPLACEMENT/A DVANTAGE - PPO) [id number] Cari Prasad [id number] Cari Prasad 10/12/2021 1 [place] [id number] Cari Prasad [id number] Cari Prasad 11/02/2022 1 [place] [facility] Cari Prasad [id number] Cari Prasad Notes Date Note Type Note Provider Name and Address Organization Details Recorded Time 4 text/html HyperlipidemiaReported by PatientHPIFor current therapy, patient reportscurrently taking: (atorvastatin),last cholesterol level: (159),last ldl level: (92),last triglyceride level: (88), andlast hdl level: (49). For compliance, patient reportscompliant,compliant with diet, andexercises. For complications, patient reportsno coronary artery disease,no peripheral artery disease, andno cardiovascular disease.Atorvastatin was help in Nov because of pain, follow up lipid panel and CVD risk score still warrant treatment.. Hypertension F/UReported by PatientHPIFor associated symptoms, patient reportsno dizziness,no lightheadedness,no chest pain,no shortness of breath,no palpitations,no edema, andno calf pain with exertion. For lifestyle, patient reportsregular exerciseandlimiting/avoidin g salt. For medications, patient reportstaking medications as directedandno side effects from medication. [facility] Smoking CessationReported by PatientHPIFor timing, patient reportsdaily. For context, patient reportsduring stress. For associated symptoms, patient reportsno weight loss,no fever/chills/sweats, andno fatigue.Lung cancer screening/LDCT scan in Oct showed stable low risk nodules.ROS as noted in the HPI 67yo with ongoing symptoms of pain in [...] appt. Still smoking. Ken Griffiths MD [address] [address], [place], [address], [facility] 01/09/2024 12:57:54 4 text/html Musculoskeletal PainReported by PatientHPIFor location, patient reportsright hipand__ knee.Has been on prednisone for new PMR diagnosis and was told to walk/exercise more. As she engaged this recommendation she developed right hip pain. Skin LesionReported by PatientHPIFor location, patient reportschest,arms, andlegs. For duration, patient reportsstarted 3 week(s) ago. For onset/timing, patient reportsgradual. For context, patient reportsno known trigger.Has noticed hypopigmented macules on extremities/abdomen. HyperlipidemiaReported by PatientHPIFor type of hyperlipidemia, patient reportshypercholesterolemia . For current therapy, patient reportscurrently taking: (atorvastatin),last cholesterol level: (180),last ldl level: (98),last triglyceride level: (100), andlast hdl level: (64). For compliance, patient reportscompliant,compliant with diet, andexercises. For complications, patient reportsno coronary artery disease,no peripheral artery disease, andno cardiovascular disease. Hypertension F/UReported by PatientHPIFor associated symptoms, patient reportsno dizziness,no lightheadedness,no chest pain,no shortness of breath,no palpitations,no edema, andno calf pain with exertion. For lifestyle, patient reportsregular exerciseandlimiting/avoidin g salt. For medications, patient reportstaking medications as directedandno side effects from medication. [facility] Smoking CessationReported by PatientHPIFor timing, patient reportsdaily. For context, patient reportsduring stress. For associated symptoms, patient reportsno weight loss,no fever/chills/sweats, andno fatigue.Still smoking, lung cancer screening is current. Would like to revisit buproprion. Recent A1C was 6.2, currently on 7.5mg of prednisone daily. Ken Griffiths MD [address], [phone], [facility] 04/12/2024 13:37:51 4 text/html Musculoskeletal PainReported by PatientHPIFor location, patient reportsright hipand__ knee.Has been on prednisone for new PMR diagnosis and was told to walk/exercise more. As she engaged this recommendation she developed right hip pain. Pt reluctant to consider surgical interventions. HyperlipidemiaReported by PatientHPIFor type of hyperlipidemia, patient reportshypercholesterolemia . For current therapy, patient reportscurrently taking: (atorvastatin),last cholesterol level: (180),last ldl level: (98),last triglyceride level: (100), andlast hdl level: (64). For compliance, patient reportscompliant,compliant with diet, andexercises. For complications, patient reportsno coronary artery disease,no peripheral artery disease, andno cardiovascular disease. Hypertension F/UReported by PatientHPIFor associated symptoms, patient reportsno dizziness,no lightheadedness,no chest pain,no shortness of breath,no palpitations,no edema, andno calf pain with exertion. For lifestyle, patient reportsregular exerciseandlimiting/avoidin g salt. For medications, patient reportstaking medications as directedandno side effects from medication. [facility] Smoking CessationReported by PatientHPIFor timing, patient reportsdaily. For context, patient reportsduring stress. For associated symptoms, patient reportsno weight loss,no fever/chills/sweats, andno fatigue.Still smoking, lung cancer screening is current. Would like to revisit buproprion. Recent A1C was 6.2, currently on 7.5mg of prednisone daily. Ken Griffiths MD [address] [address], [place], [phone], [facility] 08/07/2024 07:36:58 5 text/html Generic HPI TemplateReported by PatientHere for a physical. Feels well. Needs to get back to a dentist, utd on ophtho exam. Medicare Annual Wellness VisitReported by PatientSocial/Behavioral HistoryFor physical activity, patient reportsdoes not exercise on a regular basis,decreased physical activity, anddeconditioned due to sedentary lifestyle. For diet and nutrition, patient reportshealthy diet. For fracture risk, patient reportsno history of fractures,no recent explained fracture,no sudden unexplained fractures, andno previous musculoskeletal injuries.Mental Status:For depression risk, patient reportsnever feels sad, empty, or tearful,no loss of interest in activities,no significant changes in weight,no sleep disturbances or insomnia,no agitation,no loss of energy, andno history of depression. Ken Griffiths MD [address] [address], [place], [phone], [facility] 12/13/2024 13:59:49 5 text/html Musculoskeletal PainReported by PatientHPIFor location, patient reportsright hipand__ knee.Has been off of prednisone for PMR diagnosis since starting hydroxychloroquine. As she engaged this recommendation she developed right hip pain. Pt reluctant to consider surgical interventions. HyperlipidemiaReported by PatientHPIFor type of hyperlipidemia, patient reportshypercholesterolemia . For current therapy, patient reportscurrently taking: (atorvastatin),last cholesterol level: (149),last ldl level: (78),last triglyceride level: (70), andlast hdl level: (57). For compliance, patient reportscompliant,compliant with diet, andexercises. For complications, patient reportsno coronary artery disease,no peripheral artery disease, andno cardiovascular disease. Hypertension F/UReported by PatientHPIFor associated symptoms, patient reportsno dizziness,no lightheadedness,no chest pain,no shortness of breath,no palpitations,no edema, andno calf pain with exertion. For lifestyle, patient reportsregular exerciseandlimiting/avoidin g salt. For medications, patient reportstaking medications as directedandno side effects from medication. [facility] Smoking CessationReported by PatientHPIFor timing, patient reportsdaily. For context, patient reportsduring stress. For associated symptoms, patient reportsno weight loss,no fever/chills/sweats, andno fatigue.Still smoking, lung cancer screening is current. Would like to revisit buproprion. Recent A1C was 5.9, off of prednisone Ken Griffiths MD [address] [address], [place], [phone], [facility] 07/11/2025 07:07:54 OBGyn Episode No OBEpisode recorded.
--- OUTSIDE RECORDS SUMMARY | 2025-10-04 19:38 | XMS_ITS | Encounter Summary ---
Author Organization [facility] Address [address] [place] [address] Care Team Providers Care [employer] Feeder Name Role Phone Ken Parks MD Primary Care Provider Encounter Details Date Type Department Care Team (Late st Contact Info) Description 02/07/[address] [facility] [address] [place] [phone] Sil Byrnes MD [address] [phone] Acute vaginitis Social History Tobacco Use Types [...] vaginalis Negative Negative 02/08/2025 1:44 PM EDT [facility] Gardnerella vaginalis Positive(A) Negative 02/08/2025 1:44 PM EDT [facility] Rowan Species Positive(A) Negative 02/09/20 25 1:44 PM EDT [facility] Swab Vaginal structure / Unknown 02/07/2025 02/07/2025 6:18 PM EDT us Sil Byrnes MD LAB MICROBIOLOGY - GENER AL ORDERABLES Final Result [facility] [address] [place] [address], documented in this encounter Visit Diagnoses Diagnosis Acute vaginitis Unspecified vaginitis and vulvovaginitis documented in this encounter Care Teams [employer] Fe[employer] Relationship Specialty Start Date End Date Ken Parks MD [address] PCP - General Internal Medicine 06/14/25 documented as of this encounter
== END 2025-10-04 14:24 | disposition home or self-care (01) ==
LOC: HO.HKASLDS 14:23
PROVIDERS: PCP Pediatrics; Visit Provider Internal Medicine Rheumatology
DX: Z79.899 Other long term (current) drug therapy (principal)
CPT/HCPCS: 36415; 82565; 84450; 84460